=== PATIENT | female | born 1985 | race Caucasian/White ===

== ENCOUNTER 2022-03-27 07:27 | Inpatient (IN) ==
[2022-03-27] MEDS ORDERED: OXYTOCIN 30 UNITS/500 ML BAG IV PRN (07:51)
[2022-03-27] MEDS ORDERED: PENICILLIN G POTASSIUM 6 MU in DEXTROSE 5% 250 ML IV ONE (08:00)
[2022-03-27] MEDS: LACTATED RINGER'S 1,000 ML IV PRN ×2 (08:10→10:46)
[2022-03-27 08:17] LABS: Hematocrit (blood only) 38.3 % (37-47); Hemoglobin 13.5 g/dL (12.0-16.0); Mean Corpuscular Hemoglobin 30.1 pg (25-34); Mean Corpuscular Hgb Conc 35.2 g/dL (32-36); Mean Corpuscular Volume 85.3 fL (80-100); Mean Platelet Volume 9.7 fL (7.4-10.4); Platelet Count 264 K/uL (130-400); RDW Coefficient of Variation 12.8 % (11.5-14.5); RDW Standard Deviation 39.4 fL (36.4-46.3); Red Blood Count 4.49 M/uL (4.2-5.4)
--- NOTE | 2022-03-27 08:17 | History & Physical Report ---
Date of Service March 27, 2022 Assessment & Plan (1) Spontaneous rupture of amniotic membranes: Plan: 36-year-old G1, P0 at 39 weeks and 2 days of gestation attending with uterine contractions and spontaneous rupture of membranes at term, Vital signs stable afebrile, Cervix is 1/90%/-2, regular contractions, GBS positive, heart rate reassuring, Plan to admit, monitor, labs, COVID testing, penicillin for GBS, epidural for pain, expectant management for now due to regular contractions, will consider oxytocin if there will be no change in cervix. All questions were answered. (2) Uterine contractions at greater than 20 weeks of gestation: (3) Positive GBS test: (4) Gestational diabetes mellitus (GDM) affecting , antepartum: History of Present Illness Chief Complaint: Contractions and leakage of fluid Primary Care Provider: Sheila Melendez PA-C Patient is a 36-year-old G1, P0 at 39 weeks and 2 days of gestation who started her contractions around 3 AM and then start leaking yellow fluid from time between 630 to 7 AM. She presented to labor and delivery with painful contractions and asking for epidural. Denies vaginal bleeding and she reports good movements. Her has been complicated by, 1. History of bariatric surgery in 2019, growth ultrasounds completed last one was at 35 weeks and 12 percentile, 2. Depression complicating , on Zoloft, 3. Hypothyroidism, TSH 2 and not on meds, 4. Placenta succenturiate lobe, marginal placental cord insertion, 5. Gestational diabetes, diet-controlled, 6. GBS positive Allergies Allergy/AdvReac Type Severity Reaction Status Date / Time No Known Allergies Allergy Verified 03/27/22 07:36 Home Medications Medication Instructions Recorded Confirmed Type cholecalciferol (vitamin D3) 125 5,000 unit PO QAM 03/04/19 03/27/22 History mcg (5,000 unit) tablet (Vitamin D3) calcium carbonate 500 mg-vitamin 1 tab PO DAILY PRN 10/01/21 03/27/22 History D3 10 mcg (400 unit) chewable tablet (Calcium 500 + D) folic acid 1 mg tablet 1 mg PO DAILY 10/01/21 03/27/22 History multivitamin 1 tab PO DAILY 10/01/21 03/27/22 History sertraline 50 mg tablet 50 mg PO QAM 10/01/21 03/27/22 History Patient History Medical History (Updated 03/27/22 @ 08:15 by Radha Macedo MD) Anxiety Bariatric surgery status complicating childbirth Depression GERD (gastroesophageal reflux disease) Hypothyroidism PCOS (polycystic ovarian syndrome) Prediabetes Sleep apnea CPAP HS Surgical History History of tonsillectomy Social History Smoking Status: Never smoker Second Hand Exposure: No; Hx Alcohol Use: Yes Alcohol type: beer and wine Hx Substance Use: No Preferred Language: Lao Communication Ability: Effective Port Cdl A Driver Required: No Beliefs That Will Affect Care: None Current Living Situation: Spouse Feels Safe at Home: Yes Assistive Devices: CPAP and 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 History No history of STDs, no history of chlamydia, gonorrhea, herpes Review of Systems as per Subjective / HPI Physical Exam Constitutional: well developed, well nourished and + acute distress (With contractions only) Gastrointestinal (Abdomen): normal bowel sounds, soft, nontender, no hepatosplenomegaly (Gravid) Genitourinary: normal external appearance OB Exam Abdomen: + vertex Man ual OB Exam: + cervical dilation 1 cm, + cervical effacement 90%, + station -2 and + amniotic fluid nitrazine positive (Yellow stained amniotic fluid on her pad, ?Meconium, no gross leaking on the perineum) OB Exam Monitor Tracing: + external uterine monitor used and + category I Results & Data ([facility]) Vital Signs (Past 12 Hours) Vital Signs Pulse BP 03/27/22 07:30 68 120/85
[2022-03-27] MEDS ORDERED: fentaNYL citrate 100 MCG/2 ML VIAL ONE (08:58)
[2022-03-27] MEDS ORDERED: ePHEDrine sulfate 50 MG/ML AMP ONE (08:58)
[2022-03-27] MEDS ORDERED: BUPIVACAINE 0.25% 30 ML VIAL ONE (08:58)
[2022-03-27] MEDS ORDERED: SODIUM CHLORIDE 0.9% INJ 10 ML VIAL ONE (08:58)
[2022-03-27] MEDS ORDERED: fentaNYL 2MCG/ML ROPIVACAINE 1.25MG/ML 100 ML BAG EPI ONE (08:59)
[2022-03-27] MEDS ORDERED: ePHEDrine sulfate 50 MG/ML AMP IV PRN ×2 (09:55→12:52)
[2022-03-27] MEDS ORDERED: diphenhydrAMINE 50 MG/ML VIAL IV PRN ×3 (09:55→12:52)
[2022-03-27] MEDS ORDERED: ONDANSETRON INJ 2 MG/ML 2 ML VIAL IV PRN ×2 (09:55→11:45)
[2022-03-27] MEDS ORDERED: NALOXONE HCL 1 MG in SODIUM CHLORIDE 0.9% 1000ML 1,000 ML IV PRN ×2 (09:55→12:52)
[2022-03-27] MEDS ORDERED: fentaNYL 2MCG/ML ROPIVACAINE 1.25MG/ML 100 ML BAG EPI PRN (09:55)
[2022-03-27] MEDS ORDERED: NALOXONE HCL 0.4 MG/1 ML VIAL/CARP IV PRN ×2 (09:55→12:52)
--- NOTE | 2022-03-27 10:03 | Anesthesiology Consultation ---
Date of Service March 27, 2022 Assessment & Plan 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: Patient NOT seen in Pre Admission Testing and Acceptable Risk for Labor Epidural Consults Requested none ASA ASA2 Proposed Anesthesia Anesthesia Type: Labor Epidural and CSE Risk / Benefits Reviewed With: PT / POA / Parent / Guardian, Accepts Plan and Informed Consent Obtained History Height/Weight Height: 5 ft 4 in Weight: 89.358 kg Allergies Allergy/AdvReac Type Severity Reaction Status Date / Time No Known Allergies Allergy Verified 03/27/22 07:36 Medications Home Medications Medication Instructions Recorded Confirmed Last Taken cholecalciferol (vitamin D3) 125 5,000 unit PO QAM 03/04/19 03/27/22 03/26/22 08:00 mcg (5,000 unit) tablet (Vitamin D3) calcium carbonate 500 mg-vitamin 1 tab PO DAILY PRN 10/01/21 03/27/22 10/01/21 D3 10 mcg (400 unit) chewable tablet (Calcium 500 + D) folic acid 1 mg tablet 1 mg PO DAILY 10/01/21 03/27/22 03/26/22 08:00 multivitamin 1 tab PO DAILY 10/01/21 03/27/22 03/26/22 08:00 sertraline 50 mg tablet 50 mg PO QAM 10/01/21 03/27/22 03/26/22 08:00 Active Medications Generic Name Dose Route Start Last Admin Trade Name Freq PRN Reason Stop Dose Admin Lactated Ringer's 1,000 mls @ 150 mls/hr 03/27/22 07:51 03/27/22 08:10 Lr IV 03/29/22 07:50 999 mls/hr .[id number] PRN Administration L&D Protocol Protocol NPO Date Last Intake of Fluids: 03/27/22 Time Last Intake of Fluids: 09:00 Date Last Intake of Solids: 03/26/22 Time Last Intake of Solids: 19:00 Past Medical History Medical History Anxiety Bariatric surgery status complicating childbirth Depression GERD (gastroesophageal reflux disease) Hypothyroidism PCOS (polycystic ovarian syndrome) Prediabetes Sleep apnea CPAP HS Exercise / Class Metabolic Activity II 4-5 Yardwork/Stairs/Walk up hill Past Surgical History Surgical History History of tonsillectomy Past Anesthesia History No Hx of Anesthesia Complications and No Family Hx of Anesthesia Complications History of PONV No Hx of PONV and No Hx of Motion Sickness Social History Smoking Status: Never smoker Hx Alcohol Use: No Alcohol type: beer and wine alcohol intake frequency: holidays/special occasions only Hx Substance Use: No substance use type: does not use Review of Systems no chest pain or sob Physical Exam Vital Signs Last Vital Signs Temp 36.6 C 03/27/22 09:15 Pulse 64 03/27/22 10:00 Resp 18 03/27/22 09:15 BP 120/85 03/27/22 07:51 Pulse Ox 100 03/27/22 10:00 ENMT Mouth: no TMJ abnormality Thyromental Distance: > or= 3.5 Finger Breadths Mallampati Class: II Neck normal visual inspection Respiratory normal respiratory effort Auscultation: lungs clear to auscultation bilaterally Cardiovascular Rate/Rhythm: regular rate and regular rhythm Musculoskeletal Spine: normal cervical ROM Neurologic moves all extremities Psychiatric Orientation: alert and oriented x 3 Testing Laboratory Results 03/27/22 07:59
[2022-03-27] MEDS ORDERED: ceFAZolin 2000MG 2,000 MG/15 ML SYR IV ONE (10:42)
[2022-03-27] MEDS ORDERED: PENICILLIN G POTASSIUM 3 MU in DEXTROSE 5% 100 ML IV PRN (10:51)
--- NOTE | 2022-03-27 10:51 | Obstetrical Progress Note ---
Date of Service March 27, 2022 Assessment & Plan Admission and Anticipated Discharge Date Admission Date: March 27, 2022 Subjective I was called to the room that heart rate had prolonged decelerations to the 60s to 70s. Patient was on her left side, having nasal oxygen and IV fluid bolus. I checked her cervix and it was 4 cm dilated, 90% effaced and head was at -[address] scalp electrode and confirmed the deceleration which lasted about 12 minutes. I called for and placed Quezada catheter. Patient understood the risks and agreed with plan and signed an informed consent. While getting the consent heart rate recovered to 120s to 130s with decreased variability but no decelerations. We also spoke about expectant management but patient is scared and desires C- section now. All questions were answered. Results & Data ([facility]) Vital Signs (Past 12 Hours) Vital Signs Temp Pulse Resp BP Pulse Ox 03/27/22 10:46 55 L 100 03/27/22 10:42 60 120/82 03/27/22 10:41 59 L 100 03/27/22 10:38 82 87 L 03/27/22 10:36 73 110/70 100 03/27/22 10:31 68 86 L 03/27/22 10:26 55 L 100 03/27/22 10:25 58 L 94 03/27/22 10:22 60 108/71 03/27/22 10:21 63 98 03/27/22 10:18 59 L 102/58 L 03/27/22 10:16 60 100 03/27/22 10:14 59 L 94 03/27/22 10:12 59 L 153/76 H 03/27/22 10:11 60 100 03/27/22 10:09 63 94 03/27/22 10:05 63 100 03/27/22 10:03 73 91 03/27/22 10:00 64 100 03/27/22 09:55 68 100 03/27/22 09:50 62 100 03/27/22 09:45 55 L 100 03/27/22 09:44 67 91 03/27/22 09:40 65 100 03/27/22 09:37 79 92 03/27/22 09:35 75 97 03/27/22 09:30 64 100 03/27/22 09:25 76 100 03/27/22 09:20 56 L 100 03/27/22 09:15 36.6 C 18 03/27/22 07:51 36.5 C 68 18 120/85 03/27/22 07:30 36.5 C 68 18 120/85
[2022-03-27] MEDS ORDERED: MoRPHine SULFATE PF 1 MG/ML 10 ML AMP/VIAL ONE (11:06)
[2022-03-27] MEDS ORDERED: ONDANSETRON INJ 2 MG/ML 2 ML VIAL ONE (11:09)
[2022-03-27] MEDS ORDERED: OXYTOCIN 10 UNITS/ML 10ML VIAL ONE (11:09)
[2022-03-27] MEDS ORDERED: PHENYLEPHRINE 100MCG/ML 5ML SYR ONE (11:09)
[2022-03-27] MEDS ORDERED: ceFAZolin 330 MG/ML 1 GM VIAL ONE (11:09)
[2022-03-27] MEDS ORDERED: BENZOCAINE 20% AER SPR 82.5 GM CAN EXT PRN (11:45)
[2022-03-27] MEDS ORDERED: MEPERIDINE HCL 50 MG/ML CARP IV PRN (11:45)
[2022-03-27] MEDS ORDERED: DIPHTHERIA/TETANUS/PERTUSSIS 0.5 ML SYR/VIAL IM ONE (11:45)
[2022-03-27] MEDS ORDERED: MEASLES, MUMPS & RUBELLA VIRUS VIAL SQ ONE (11:45)
[2022-03-27] MEDS ORDERED: SENNA 8.6 MG TAB PO PRN (11:45)
[2022-03-27] MEDS ORDERED: PROMETHAZINE HCL 25 MG in SODIUM CHLORIDE 0.9% 50 ML IV PRN (11:45)
[2022-03-27] MEDS ORDERED: KETOROLAC 30 MG/ML VIAL IV PRN ×2 (11:45→12:52)
[2022-03-27] MEDS ORDERED: MAGNESIUM HYDROXIDE SUSP 30 ML UDC PO PRN (11:45)
[2022-03-27] MEDS ORDERED: diphenhydrAMINE Capsule 25 MG CAP PO PRN (11:45)
[2022-03-27] MEDS ORDERED: IBUPROFEN 600 MG TAB PO PRN (11:45)
[2022-03-27] MEDS ORDERED: LACTATED RINGER'S 1,000 ML IV SCH (11:45)
[2022-03-27] MEDS ORDERED: HYDROCORTISONE ACETATE 25 MG SUPP PR PRN (11:45)
[2022-03-27] MEDS ORDERED: LACTATED RINGER'S 500 ML IV PRN (12:52)
[2022-03-27] MEDS ORDERED: MoRPHine SULFATE PF 1 MG/ML 10 ML AMP/VIAL EPI ONE (12:52)
[2022-03-27] MEDS ORDERED: NALBUPHINE HCL INJ 10 MG/ML AMP IV PRN (12:52)
[2022-03-27] MEDS ORDERED: NALOXONE HCL 0.08 MG in SYRINGE 1.8 ML IV PRN (12:52)
[2022-03-27] MEDS ORDERED: HYDROmorphone INJ 0.5 MG/0.5 ML SYR IV PRN (12:52)
--- NOTE | 2022-03-27 12:52 | Anesthesiology Progress Note ---
Date of Service March 27, 2022 Anesthesia Post Procedure Vital Signs Vital Signs: Temp Pulse Resp BP Pulse Ox 03/27/22 12:49 86 116/61 100 03/27/22 12:47 81 122/68 03/27/22 12:44 79 100 03/27/22 12:39 92 H 100 03/27/22 12:34 72 100 03/27/22 12:33 79 92 03/27/22 12:32 75 132/74 03/27/22 12:29 87 100 03/27/22 12:26 83 87 L 03/27/22 12:24 84 100 03/27/22 12:19 88 100 03/27/22 12:17 86 124/69 03/27/22 12:15 84 87 L 03/27/22 12:14 90 100 03/27/22 12:09 87 97 03/27/22 12:08 90 90 03/27/22 12:07 82 118/76 03/27/22 12:04 75 100 03/27/22 12:03 82 94 03/27/22 11:59 73 96 03/27/22 11:55 77 122/71 93 03/27/22 11:54 85 100 03/27/22 10:48 61 125/83 03/27/22 10:46 55 L 100 03/27/22 10:42 60 120/82 03/27/22 10:41 59 L 100 03/27/22 10:38 82 87 L 03/27/22 10:36 73 110/70 100 03/27/22 10:31 68 86 L 03/27/22 10:26 55 L 100 03/27/22 10:25 58 L 94 03/27/22 10:22 60 108/71 03/27/22 10:21 63 98 03/27/22 10:18 59 L 102/58 L 03/27/22 10:16 60 100 03/27/22 10:14 59 L 94 03/27/22 10:12 59 L 153/76 H 03/27/22 10:11 60 100 03/27/22 10:09 63 94 03/27/22 10:05 63 100 03/27/22 10:03 73 91 03/27/22 10:00 64 100 03/27/22 09:55 68 100 03/27/22 09:50 62 100 03/27/22 09:45 55 L 100 03/27/22 09:44 67 91 03/27/22 09:40 65 100 03/27/22 09:37 79 92 03/27/22 09:35 75 97 03/27/22 09:30 64 100 03/27/22 09:25 76 100 03/27/22 09:20 56 L 100 03/27/22 09:15 36.6 C 18 03/27/22 07:51 36.5 C 68 18 120/85 03/27/22 07:30 36.5 C 68 18 120/85 Transfer of Care Handoff Completed per policy Notes Mental Status: alert / awake / arousable Patient Amnestic to Procedure: Yes Nausea / Vomiting: adequately controlled Pain: adequately controlled Airway Patency, RR, SpO2: stable & adequate BP & HR: stable & adequate Hydration State: stable & adequate Neuraxial Anesthesia: was administered and sensory block is resolving Anesthetic Complications: no major complications apparent and Pt Satisfied with anesthetic care
[2022-03-27] MEDS ORDERED: SODIUM CHLORIDE 0.9% 1000ML 1,000 ML IV SCH (13:00)
[2022-03-27] MEDS ORDERED: DC INTRASPINAL MORPHINE SCH (13:00)
[2022-03-27] MEDS ORDERED: NO NARCOTICS OR SEDATIVES SCH (13:00)
[2022-03-27] MEDS: OXYTOCIN 20 UNITS in LACTATED RINGER'S 1,000 ML IV SCH ×2 (13:10→21:15)
[2022-03-27] MEDS ORDERED: ACETAMINOPHEN 1,000 MG/100 ML VIAL IV STA (15:40)
[2022-03-27] MEDS: SIMETHICONE 80 MG CHEW PO SCH ×3 (15:55→23:45)
[2022-03-27] MEDS ORDERED: ACETAMINOPHEN 1,000 MG/100 ML VIAL IV PRN (16:53)
--- NOTE | 2022-03-27 20:20 | Operative Report (OR) ---
DATE OF SURGERY: 03/27/2022 PREOPERATIVE DIAGNOSES: The patient is a 36-year-old G1, P0 at 39 weeks and 2 days of gestation, who presented to labor and delivery with contractions, spontaneous rupture of membranes, meconium stained fluid, prolonged heart rate deceleration with bradycardia and remote from delivery. POSTOPERATIVE DIAGNOSES: The patient is a 36-year-old G1, P0 at 39 weeks and 2 days of gestation, who presented to labor and delivery with contractions, spontaneous rupture of membranes, meconium stained fluid, and prolonged heart rate deceleration with bradycardia and remote from delivery. Occiput posterior position. PROCEDURE: Primary low transverse with Pfannenstiel skin incision. SURGEON: Radha Macedo MD. ORTHO NURSE: JOYCE Jay. ESTIMATED BLOOD LOSS: 600 mL FLUIDS. 1500 mL of lactated Ringer's. CATHETERS: Quezada catheter drained 150 mL of clear urine. ANESTHESIA: Labor epidural. ANESTHESIOLOGIST: Dr. Morales. COMPLICATIONS: None. FINDINGS: Baby was a viable male infant, delivered in occiput posterior position at 11:07 am. Apgars were 8/9, weight is 2985 gr. Maternal findings: Normal uterus, fallopian tubes and ovaries. DESCRIPTION OF PROCEDURE: The patient was taken to the operating room where epidural anesthesia was found to be adequate. She was placed in the dorsal supine position with a leftward tilt. She was prepared and draped in the usual sterile fashion. A Pfannenstiel skin incision was made and carried through to the underlying layer of fascia with the Bovie. Fascia was incised in the midline and incision was extended laterally with the help of Blunt scissors. Upper aspect of the fascial incision was grasped with 2 Azra clamps, elevated and underlying rectus muscles were dissected off sharply with Blunt scissors and bluntly with fingers. Same thing was done on the lower aspect of the fascial incision. Rectus muscles were in the midline. Peritoneum was entered bluntly with fingers. Peritoneal incision was extended superiorly and inferiorly with good visualization of the bladder. Bladder blade was inserted. Vesicouterine peritoneum was identified, grasped with pickups, and entered sharply with Metzenbaum scissors and bladder flap was created digitally and bladder blade was reinserted. Lower uterine segment was incised in transverse fashion. Incision was extended laterally with the help of fingers. Membranes were ruptured and head was delivered without difficulty. Shoulders were delivered with minimal traction and mouth and nose were suctioned. Baby was moving and crying. Cord was clamped x2 and cut at 1 minute delay and baby was handed to the waiting pediatric team with Dr. Field. Cord blood was obtained and then placenta was delivered manually as intact and complete. Uterus was exteriorized and cleared of all clots and debris. Uterine incision was repaired with 0 Vicryl in a running locked fashion. A second imbricating layer was placed with another 0 Vicryl in a running locked fashion. Excellent hemostasis was achieved. Cul-de-sac was irrigated with warm normal saline and suctioned. Normal ovaries and fallopian tubes were seen. Uterus was returned to the abdomen. Pelvis was irrigated with warm normal saline and suctioned. Incision was checked to be again hemostatic. Parietal peritoneum was reapproximated with 0 Vicryl in a running fashion. Rectus muscles were reapproximated with the same suture in a running fashion. Over the rectus muscles and under the fascia were hemostatic. Rectus fascia was closed with 0 Vicryl in a running fashion. The subcuticular fat tissue was brought together with 3-0 Vicryl in a running fashion. The skin was closed with 4-0 Monocryl in a subcuticular fashion. The patient tolerated the procedure well. Sponge, lap, needle count was correct x3. No complications happened. I was present during whole procedure. She was given 2 grams of cefazolin before surgery. She was taken to recovery room in stable condition. Job ID: [id number] [facility]
[2022-03-27] MEDS: DOCUSATE SODIUM 100 MG CAP PO SCH (23:45)
[2022-03-28] MEDS: NALBUPHINE HCL INJ 10 MG/ML AMP IV PRN ×3 (05:14→05:35)
[2022-03-28 07:30] LABS: Hematocrit (blood only) 33.7 % (37-47); Hemoglobin 11.7 g/dL (12.0-16.0); Mean Corpuscular Hemoglobin 30.3 pg (25-34); Mean Corpuscular Hgb Conc 34.7 g/dL (32-36); Mean Corpuscular Volume 87.3 fL (80-100); Mean Platelet Volume 10.4 fL (7.4-10.4); Platelet Count 216 K/uL (130-400); RDW Standard Deviation 41.1 fL (36.4-46.3); Red Blood Count 3.86 M/uL (4.2-5.4); White Blood Count 10.24 K/uL (4.8-10.8)
[2022-03-28 07:32] LABS: Basophils # (auto) 0.01 K/uL (0-0.2); Basophils % (auto) 0.1 %; Immature Granulocytes # (auto) 0.03 K/uL (0.00-0.02); Immature Granulocytes % (auto) 0.3 %; Lymphocytes # (auto) 1.22 K/uL (1.2-3.4); Lymphocytes % (auto) 11.9 %; Monocytes # (auto) 0.76 K/uL (0.11-0.59); Monocytes % (auto) 7.4 %; Neutrophils # (auto) 8.22 K/uL (1.4-6.5); Neutrophils % (auto) 80.3 %
[2022-03-28] MEDS: PRENATAL VITAMIN 1 TAB PO SCH (08:30)
[2022-03-28] MEDS: DOCUSATE SODIUM 100 MG CAP PO SCH ×2 (08:30→20:16)
[2022-03-28] MEDS: SIMETHICONE 80 MG CHEW PO SCH ×4 (08:30→21:21)
[2022-03-28] MEDS: FERROUS SULFATE 325 MG TAB PO SCH (08:30)
--- NOTE | 2022-03-28 10:01 | Obstetrical Progress Note ---
Date of Service March 28, 2022 Subjective Ambulation: limited ambulation Voiding: no voiding problems Passing Gas:: No Diet Tolerance:: regular diet Lochia:: Small Feeding Type:: breast feeding Current Pain Level(1-10): 0 doing well Physical Exam Constitutional WD/WN, vitals as above abdomen soft and non-tender. incision c/d/i no edema. neg Chelo's will advance care Results & Data ([facility]) Vital Signs (Past 12 Hours) Vital Signs Temp Pulse Pulse Resp BP BP Pulse Ox 03/28/22 08:25 36.9 C 77 19 114/74 03/28/22 06:39 20 99 03/28/22 06:00 20 99 03/28/22 05:00 18 98 03/28/22 04:00 18 99 03/28/22 03:00 20 98 03/28/22 02:00 20 99 03/28/22 01:00 37.2 C 56 L 20 112/74 99 03/28/22 00:00 18 98 03/27/22 23:00 20 98 Pulse Ox 03/28/22 08:25 03/28/22 06:39 03/28/22 06:00 98 03/28/22 05:00 03/28/22 04:00 03/28/22 03:00 03/28/22 02:00 03/28/22 01:00 03/28/22 00:00 03/27/22 23:00 Laboratory Results 03/27/22 03/27/22 03/27/22 07:59 08:00 11:07 WBC 11.40 H RBC 4.49 Hgb 13.5 Hct 38.3 MCV 85.3 MCH 30.1 MCHC 35.2 RDW Std Deviation 39.4 RDW Coeff of Andrew 12.8 Plt Count 264 MPV 9.7 Immature Gran % (Auto) Neut % (Auto) Lymph % (Auto) [place] % (Auto) Eos % (Auto) Baso % (Auto) Neut # (Auto) Lymph # (Auto) [place] # (Auto) Eos # (Auto) Baso # (Auto) Immature Gran # (Auto) Cord ABG pH Cancelled Cord ABG pCO2 Cancelled Cord ABG pO2 Cancelled Cord ABG HCO3 Cancelled Cord ABG Base Excess Cancelled Cord ABG O2 Sat Cancelled Cord VBG pH Cord VBG pCO2 Cord VBG pO2 Cord VBG HCO3 Cord VBG Base Excess Cord VBG O2 Sat Barometric Pressure Cancelled Blood Gas Comments Cancelled SARS-CoV-2, RNA, NAAT NEGATIVE 03/27/22 03/28/22 11:07 05:45 WBC 10.24 RBC 3.86 L Hgb 11.7 L Hct 33.7 L MCV 87.3 MCH 30.3 MCHC 34.7 RDW Std Deviation 41.1 RDW Coeff of Andrew 13.0 Plt Count 216 MPV 10.4 Immature Gran % (Auto) 0.3 Neut % (Auto) 80.3 Lymph % (Auto) 11.9 [place] % (Auto) 7.4 Eos % (Auto) 0.0 Baso % (Auto) 0.1 Neut # (Auto) 8.22 H Lymph # (Auto) 1.22 [place] # (Auto) 0.76 H Eos # (Auto) 0.00 Baso # (Auto) 0.01 Immature Gran # (Auto) 0.03 H Cord ABG pH Cord ABG pCO2 Cord ABG pO2 Cord ABG HCO3 Cord ABG Base Excess Cord ABG O2 Sat Cord VBG pH Cancelled Cord VBG pCO2 Cancelled Cord VBG pO2 Cancelled Cord VBG HCO3 Cancelled Cord VBG Base Excess Cancelled Cord VBG O2 Sat Cancelled Barometric Pressure Cancelled Blood Gas Comments Cancelled SARS-CoV-2, RNA, NAAT
[2022-03-28] MEDS: oxyCODONE/ACETAMINOPHEN 5mg/325mg TAB PO PRN ×4 (10:22→21:25)
[2022-03-28] MEDS ORDERED: bisacodyL 5 MG TABEC PO SCH (20:00)
[2022-03-29] MEDS: oxyCODONE/ACETAMINOPHEN 5mg/325mg TAB PO PRN ×6 (00:51→23:58)
[2022-03-29 07:00] LABS: Hematocrit (blood only) 34.9 % (37-47); Hemoglobin 11.9 g/dL (12.0-16.0)
--- NOTE | 2022-03-29 08:11 | Labor Progress Brief Note ---
Date of Service March 29, 2022 Assessment & Plan (1) delivery delivered: Plan: c/sec day #2 Pt doing well No complaints anticipate disch tomorrow Admission and Anticipated Discharge Date Admission Date: March 27, 2022 Results & Data ([facility]) Vital Signs (Past 12 Hours) Vital Signs Temp Pulse Resp BP Pulse Ox 03/29/22 00:00 37.1 C 80 20 126/79 99
[2022-03-29] MEDS: DOCUSATE SODIUM 100 MG CAP PO SCH ×2 (08:24→20:10)
[2022-03-29] MEDS: SIMETHICONE 80 MG CHEW PO SCH ×4 (08:24→20:10)
[2022-03-29] MEDS: PRENATAL VITAMIN 1 TAB PO SCH (08:24)
[2022-03-29] MEDS: FERROUS SULFATE 325 MG TAB PO SCH (08:24)
[2022-03-29] MEDS ORDERED: ACETAMINOPHEN 325 MG TAB PO PRN (08:46)
--- NOTE | 2022-03-29 08:48 | Obstetrical Progress Note ---
Date of Service March 29, 2022 Assessment & Plan (1) delivery delivered: Results & Data ([facility]) Vital Signs (Past 12 Hours) Vital Signs Temp Pulse Resp BP Pulse Ox 03/29/22 00:00 37.1 C 80 20 126/79 99
[2022-03-29] MEDS: SERTRALINE HCL 50 MG TABLET PO SCH (11:41)
[2022-03-29] MEDS ORDERED: bisacodyL 10 MG SUPP PR PRN (11:45)
[2022-03-30] MEDS: PRENATAL VITAMIN 1 TAB PO SCH (07:22)
[2022-03-30] MEDS: FERROUS SULFATE 325 MG TAB PO SCH (07:22)
[2022-03-30] MEDS: DOCUSATE SODIUM 100 MG CAP PO SCH (07:22)
[2022-03-30] MEDS: oxyCODONE/ACETAMINOPHEN 5mg/325mg TAB PO PRN ×2 (07:23→12:06)
[2022-03-30] MEDS: SIMETHICONE 80 MG CHEW PO SCH (08:14)
[2022-03-30] MEDS: SERTRALINE HCL 50 MG TABLET PO SCH (08:14)
--- NOTE | 2022-03-30 09:37 | Obstetrical Progress Note ---
Date of Service March 30, 2022 Assessment & Plan Admission and Anticipated Discharge Date Admission Date: March 27, 2022 Subjective Patient is seen and examined. She feels well, no complaints. Pain is under control with oral meds. Ambulating without dizziness Voiding without difficulty Tolerating regular diet with out N&V Flatus + BM + Bleeding is minimal No fever/ chills/ CP/ SOB/ N&V/ Leg pain Breast feeding without problems Vital Signs Temp Pulse Resp BP Pulse Ox 03/30/22 08:00 37.2 C 85 18 133/93 99 03/29/22 19:35 37.1 C 83 18 124/83 98 03/29/22 15:45 36.7 C 76 18 119/81 97 Lab Results 03/27/22 03/27/22 03/27/22 Range/Units 07:59 08:00 11:07 WBC 11.40 H (4.8-10.8) K/uL RBC 4.49 (4.2-5.4) M/uL Hgb 13.5 (12.0-16.0) g/dL Hct 38.3 (37-47) % MCV 85.3 (80-100) fL MCH 30.1 (25-34) pg MCHC 35.2 (32-36) g/dL RDW Std Deviation 39.4 (36.4-46.3) fL RDW Coeff of Andrew 12.8 (11.5-14.5) % Plt Count 264 (130-400) K/uL MPV 9.7 (7.4-10.4) fL Immature Gran % (Auto) % Neut % (Auto) % Lymph % (Auto) % Lamb % (Auto) % Eos % (Auto) % Baso % (Auto) % Neut # (Auto) (1.4-6.5) K/uL Lymph # (Auto) (1.2-3.4) K/uL Lamb # (Auto) (0.11-0.59) K/uL Eos # (Auto) (0-0.5) K/uL Baso # (Auto) (0-0.2) K/uL Immature Gran # (Auto) (0.00-0.02) K/uL Cord ABG pH Cancelled Cord ABG pCO2 Cancelled Cord ABG pO2 Cancelled Cord ABG HCO3 Cancelled Cord ABG Base Excess Cancelled Cord ABG O2 Sat Cancelled Cord VBG pH Cord VBG pCO2 Cord VBG pO2 Cord VBG HCO3 Cord VBG Base Excess Cord VBG O2 Sat Barometric Pressure Cancelled Blood Gas Comments Cancelled SARS-CoV-2, RNA, NAAT NEGATIVE (NEGATIVE) 03/27/22 03/28/22 03/29/22 Range/Units 11:07 05:45 06:18 WBC 10.24 (4.8-10.8) K/uL RBC 3.86 L (4.2-5.4) M/uL Hgb 11.7 L 11.9 L (12.0-16.0) g/dL Hct 33.7 L 34.9 L (37-47) % MCV 87.3 (80-100) fL MCH 30.3 (25-34) pg MCHC 34.7 (32-36) g/dL RDW Std Deviation 41.1 (36.4-46.3) fL RDW Coeff of Andrew 13.0 (11.5-14.5) % Plt Count 216 (130-400) K/uL MPV 10.4 (7.4-10.4) fL Immature Gran % (Auto) 0.3 % Neut % (Auto) 80.3 % Lymph % (Auto) 11.9 % Lamb % (Auto) 7.4 % Eos % (Auto) 0.0 % Baso % (Auto) 0.1 % Neut # (Auto) 8.22 H (1.4-6.5) K/uL Lymph # (Auto) 1.22 (1.2-3.4) K/uL Lamb # (Auto) 0.76 H (0.11-0.59) K/uL Eos # (Auto) 0.00 (0-0.5) K/uL Baso # (Auto) 0.01 (0-0.2) K/uL Immature Gran # (Auto) 0.03 H (0.00-0.02) K/uL Cord ABG pH Cord ABG pCO2 Cord ABG pO2 Cord ABG HCO3 Cord ABG Base Excess Cord ABG O2 Sat Cord VBG pH Cancelled Cord VBG pCO2 Cancelled Cord VBG pO2 Cancelled Cord VBG HCO3 Cancelled Cord VBG Base Excess Cancelled Cord VBG O2 Sat Cancelled Barometric Pressure Cancelled Blood Gas Comments Cancelled SARS-CoV-2, RNA, NAAT (NEGATIVE) PE: General: Alert, orientedx3, NAD CVS: S1S2 RRR Lungs; CTAB Abd: soft, NT, ND, BS+, fundus firm, below Umbilicus Incision: Clean, dry, intact, small bruise on middle superior side Perineum intact, Lochia rubra minimal Ext; NT, no edema AP: 36 yo s/p C Section, pod# 3 VSS Afebrile doing well Continue routine postop care Encourage ambulation, PO intake All questions were answered D/C home , f/u in office Results & Data ([facility]) Vital Signs (Past 12 Hours) Vital Signs Temp Pulse Resp BP Pulse Ox 03/30/22 08:00 37.2 C 85 18 133/93 99
--- NOTE | 2022-04-02 09:33 | Discharge Summary (DS) ---
DATE OF ADMISSION: 03/27/2022. DATE OF DISCHARGE: 03/30/2022. DETAILS OF ADMISSION: The patient is a 36-year-old G1, P0 at 39 weeks and 2 days of gestation. She presented to labor and delivery with contractions and spontaneous rupture of membranes. Her cervix was 1 cm dilated, 90% effaced, -2 with regular contractions. GBS was positive and she was leaking meconium stained fluid. heart rate was reassuring initially. She was admitted for labor and started penicillin for GBS and continuously monitored. Then heart rate had a prolonged decelerations/bradycardia to the 60s-70s for about 12 minutes and she was 4 cm dilated, 90% effaced, head was -2 station. Due to the category 3 strip, remote from delivery, decision was made to go for emergency . The patient understood risks and signed an informed consent. She was taken to the OR, had primary low transverse , delivered a viable male at 11:07 a.m. Her surgery was uncomplicated. See dictated op note for details. On postop period, the patient was doing well, vital signs stable, afebrile. Urine output was good. She was continuously monitored. On postoperative day #1, the patient was doing well, vital signs stable, afebrile. Quezada was discontinued. She was ambulated, started on regular diet. Her postop H and H was 11.7/33.7. Postop day #2, the patient was doing well, vital signs stable, afebrile. Physical exam was unremarkable. Incision was clean, dry and intact. She was eating regular diet and ambulating. On postoperative day #3 patient was doing well, vital signs stable, afebrile. She was passing gas, moving her bowels, voiding without difficulty, without problems. Her repeat H and H was 11.9/34.9. Physical exam was unremarkable. Incision was clean, dry and intact. Bleeding was minimal. Abdomen was soft, nontender, nondistended. She was discharged home on postoperative day #3. Discharge instructions were given. Prescriptions were written for pain. She is to be seen in the office in a week for incision check. Job ID: [id number] [facility]
== END 2022-03-30 13:45 | disposition home or self-care (01) | DRG 788 ==
LOC: OPB 07:27 → 4S1 07:28 → 4E2 14:30
DX: O43.123 Velamentous insertion of umbilical cord, third trimester; F41.9 Anxiety disorder, unspecified; Z37.0 Single live birth; Z90.09 Acquired absence of other part of head and neck; O99.344 Other mental disorders complicating childbirth; O99.613 Diseases of the digestive system complicating pregnancy, third trimester; K21.9 Gastro-esophageal reflux disease without esophagitis; O77.0 Labor and delivery complicated by meconium in amniotic fluid; O99.844 Bariatric surgery status complicating childbirth; O24.420 Gestational diabetes mellitus in childbirth, diet controlled; Z3A.39 39 weeks gestation of pregnancy; O99.820 Streptococcus B carrier state complicating pregnancy

== ENCOUNTER 2024-07-02 07:51 | Inpatient (IN) ==
--- NOTE | 2024-06-20 16:15 | Anesthesiology Consultation ---
Date of Service June 20, 2024 Assessment & Plan (1) Encounter for pre-operative examination: Infectious disease screening: Per assessment on 06/20/24: No known recent infectious disease contacts or current infectious disease symptoms. 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 History Surgery Operation Date: 07/02/24 10:20 Proposed Procedures p Repeat Section - Dandre Hardy MD s With Bilateral Tubal Ligation - Dandre Hardy MD Height/Weight Height: 5 ft 4 in Weight: 87.997 kg Allergies Allergy/AdvReac Type Severity Reaction Status Date / Time enoxaparin [From Lovenox] Allergy Unknown Rash Verified 06/20/24 15:14 Medications Home Medications Medication Instructions Recorded Confirmed Last Taken cholecalciferol (vitamin D3) 125 5,000 unit PO QAM 03/04/19 06/20/24 03/29/24 21:00 mcg (5,000 unit) tablet (Vitamin D3) calcium carbonate 500 mg-vitamin 1 tab PO DAILY 10/01/21 06/20/24 03/29/24 21:00 D3 10 mcg (400 unit) chewable tablet (Calcium 500 + D) folic acid 1 mg tablet 1 mg PO DAILY 10/01/21 06/20/24 03/29/24 21:00 multivitamin 1 tab PO DAILY 10/01/21 06/20/24 03/29/24 21:00 Past Medical History Medical History Anemia last iron infusion 03/2024 Anxiety History of COVID-19 (2021) Symptoms resolved Hx gestational diabetes PCOS (polycystic ovarian syndrome) Sleep apnea "No longer needs CPAP since bariatric surgery" Past Family History Family History Other No family history of adverse response to anesthesia Past Surgical History Surgical History History of esophagogastroduodenoscopy (EGD) History of tonsillectomy Hx of section Hx of gastric bypass (08/2019) [place] teeth removed Social History Smoking Status: Never smoker Do You Dip or Chew Tobacco: No Hx Alcohol Use: No Alcohol type: beer and wine alcohol intake frequency: holidays/special occasions only Hx Substance Use: No substance use type: does not use
--- OUTSIDE RECORDS SUMMARY | 2024-07-02 08:02 | External Medical Summary | Summary of Care ---
Author Name Unknown Organization [facility] Address [address] [facility] [address] Phone [phone] Care Team Providers Care Signals Officer Name Role Phone Sheila Melendez PA-C Primary Care Provide r Reason for Visit * Reason Comments Return Visit Pre-Op Testing Encounter Details Date Type Department Care Team (Late st Contact Info) Description 06/10/2024 8:45 AM EDT Office Visit Gynecology/Obstetric s [facility] [address] [place] [address] Samina Flores MD [address] [place] [id number] 36 weeks gestation of *; High-risk , third trimester; Previous bariatric surgery affecting , antepartum; H/O section; Antepartum multigravida of advanced maternal age; History of gestational diabetes; Supervision of high-risk , unspecified trimester; Depression complicating , antepartum Allergies Active Allergy Reactions Criticality Noted Date Comments Enoxaparin Sodium Rash 09/10/2019 documented as of this encounter (statuses as of 06/10/2024) Medications Medication Sig Dispensed Refills Start Date End Date Status Calcium+D3 600-800 MG-UNIT Oral Tablet Take by mouth 1 Tablet 3 times a day . All chews Active Cholecalciferol (VITAMIN D) 25 MCG (1000 UT) TABS Take by mouth. Active Childrens Chewable Vitamins Oral Tablet Chewable Take 1 Tablet by mouth in the morning and 1 Tablet before bedtime. Active Folic Acid 5 MG Oral Capsule Take by mouth. Active [place]-3 Fatty Acids 1000 MG Oral Capsule (OMEGA-3) Take 1 Capsule by mouth in the morning. Active Clindamycin Phosphate 1 % External Lotion APPLY 1 APPLICATION TOPICALLY TWICE DAILY TO RASH ON FACE AND PIMPLY AREAS NEEDED 02/28/2024 Active Iron Sucrose 20 MG/ML Intravenous Solution (Venofer)Indications :Intestinal postoperative nonabsorption,Pregna ncy affected by previous bariatric surgery, currently in second trimester,Status post gastric bypass for obesity,Iron deficiency anemia secondary to inadequate dietary iron intake Administer 300 mg intravenously once a week. 04/08/2024 Active Hospital, Clinic, or Other Facility Administered Medication Ordered Dose Route Frequency Start Date End Date Status vitamin b-12 (Cyanocobalamin) inj 1,000 mcgIndications:Encounter for supervision of normal first in first trimester,S/P bariatric surgery 1000 mcg IM [id number] 08/22/2021 Active documented as of this encounter (statuses as of 06/10/2024) Active Problems Problem Noted Date Diagnosed Date Antepartum anemia 04/14/2024 History of gestational diabetes 11/29/2023 Overview: Early glucola Antepartum multigravida of advanced maternal age 0111/29/2023 H/O section 11/29/2023 Overview: Desires repeat c/s with BTL Iron deficiency anemia rossana alonso to inadequate dietary iron intake 09/18/2023 COVID-19 vaccine series started 01/20/2022 Overview: Upon review of records, primary series of J&J COVID-19 vaccine completed on 03/04/21 Last Assessment & Plan: The CDC and ACOG encourages a COVID-19 vaccine booster for women, given the risk of severe complications from COVID-19 in . Supervision of high-risk , unspecified trimester 08/24/2021 complicated by previous bariatric surg ang 08/24/2021 Overview: On supplements Desires to try glucola rather than fingersticks Last Assessment & Plan: DISCUSSION: 1. Explained to patient that weight loss after bariatric surgery often leads to greater fertility and a decreased risk for the obstetric complications. 2. Explained that it is recommended to delay for 12 to 24 months after bariatric surgery to avoid during the period of rapid weight loss. Women with a gastric band should be monitored during because the band may need to be adjusted. 3. In there may be a delay in diagnosis of bariatric-related operative complications, including anastomotic leaks, bowel obstructions, internal hernias, ventral hernias, band erosion, and band migration. Therefore, all gastrointestinal problems such as nausea, vomiting, and abdominal pain should be thoroughly evaluated with involvement of the bariatric surgeon because the underlying pathology may be related to the bariatric surgery, not the itself. 4. Discussed the most common nutritional deficiencies after gastric bypass surgery to include protein, iron, vitamin B12, folate, vitamin D, and calcium. RECOMMENDATIONS: 1. Vitamin supplements recommended for the woman with a history of bariatric surgery are as follows: - vitamin daily with 1mg of folic acid -Vitamin B12 IM injection 1000mcg monthly -Vitamin D 800 IU daily -Calcium citrate 7899-5757 mg daily (better absorbed than calcium carbonate) -Ferrous fumarate 325 mg daily (taken with vitamin C to improve absorption and acidify the stomach). -If patient has persistent vomiting, then add thiamine 50mg daily. 2. Other nutritional information to consider: -Protein intake of 60 g daily is recommended. -Excess vitamin A consumption during is associated with defects. Vitamin A should be limited to less than 5,000 IU per day during . Vitamins with beta-carotene, the pre-form Vitamin A which is not teratogenic, are preferred. 3. Recommend nutrition referral to help the patient adhere to dietary regimens and to cope with the physiologic changes of . 4. Recommend Maternal Medicine anatomy ultrasound and serial growth assessments every 4 weeks after 24 weeks. 5. Patients with a history of gastric bypass often cannot tolerate the gestational diabetes screen secondary to dumping syndrome. Therefore, as an alternative screening method, we recommend monitoring fasting and 2-hour postprandial blood sugars for one week between 24-28 weeks of gestation. 6. Bariatric surgery should not alter the course of labor and delivery, and therefore, it does not significantly affect its management. Bariatric surgery itself should not be considered as an indication for delivery. 7. Patients with history of bariatric surgery within past two years should notify their bariatric surgeon. 8. Consider pre-labor consultation with bariatric surgeon if extensive abdominal surgery was performed. Depression complicating , antepartum Overview: Stopped med with +HPT. Feeling well at NOB. Desires to stay off meds. Last Assessment & Plan: Reviewed with patient that women with a history of depression are at risk for recurrence both during and/or the period. Discussed with patient that depression can and should be treated during when the benefits of treatment outweigh potential risks. 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 Estimated Date of Delivery Comme nts Yes 07/07/2024 Based on last me nstrual period of 10/01/2023 documented as of this encounter (statuses as of 06/10/2024) Resolved Problems Problem Noted Date Diagnosed Date Resolved Date GBS (group B Streptococcus c arrier), +RV culture, currently 03/10/2022 08/08/2022 Genetic screening 01/20/2022 08/08/2022 Overview: I reviewed cffDNA screening completed on 09/15/21 which resulted in low risk for aneuploidy Last Assessment & Plan: Cell-free DNA (cffDNA) screening is a genetic screening option that analyzes maternal blood for DNA that is placental in origin and targets the following conditions: Trisomy 21 (Down syndrome), trisomy 18, trisomy 13, and sex chromosome abnormalities such as monosomy X (Mittal syndrome), and sex chromosome trisomies (triple X, Klinefelter syndrome, XYY). It may also evaluate for other genetic alterations such as microdeletions, depending on the specific test. Results provided are NOT diagnostic, but provide a risk estimate. Types of results include low-risk/negative, high-risk/positive, and inconclusive. Low-risk results convey a low risk for the conditions screened, while high- risk results will indicate which condition is high risk and the likelihood of the condition based on the results. High-risk supervis ion, third trimester 01/20/2022 03/08/2022 Placenta succenturiate lobe affecting fetus 01/12/2022 08/08/2022 Overview: Upon review of records succenturiate lobe and marginal placental cord insertion noted on ultrasound on 11/14/21 Last Assessment & Plan: We discussed the finding of a succenturiate lobe. Given the position of the anterior lobe, there is no evidence to suggest a vasa previa. As such, the main risk with this finding is retained placenta after delivery. I encouraged her to discuss this with her delivering providers to ensure complete placenta removal after delivery. GDM (gestational diabetes mellitus) 01/12/2022 08/08/2022 Overview: Patient has been testing her fasting and postprandial values and given some elevations of 1 hour postprandials, she was given a diagnosis of GDM. She has an upcoming visit with nutrition scheduled on 01/23/22 She reports on average, her fastings are less than 95 and she had sporadic elevations with breakfast and lunch meals. Majority of dinner postprandials are less than 140. 01/23 F stable/elevations regularly in PP some in the 200s/email to patient 01/30 stable with 2 elevated PP 02/06 stable F elevated PP/email to patient/nutrition appt this week 02/13 stable 02/20 F stable, several high PP/email to patient 02/27 stable F/high PP dinner/mealtime if not stable next week 03/06 one hypo F and one hypo 2 hr PP/email to patient 03/13/22: One hypo F and 2 hyper PP /email to patient 03/20: One hypo, 68 fasting; 3 hyper 142, 142, 141 Last Assessment & Plan: Beatriz doing well working with [facility]. If medication required, please initiate 2x weekly NSTs and plan for 39 week delivery. We reviewed her growth u/s results as EFW today on the lower end of normal. This is most likely due to difficulty in obtaining accurate head measurements at later gestational age (AC is normal). She was reassured that growth is normal. At this time, no indication for early delivery. Hypothyroidism affecting 08/24/2021 08/08/2022 Overview: No meds, TSH 2.06 on 08/03/21 Check each trimester Last Assessment & Plan: DISCUSSION: 1. Discussed with the patient that uncontrolled maternal hypothyroidism is associated with compromised neuropsychological development of the developing fetus in addition to an increased risk of miscarriage, , preeclampsia, placental abruption, low weight infants, and IUFD. These risks are modifiable with thyroid-replacement medications. Thyroid-replacement therapies are safe to use during and essential to normal development. One third of hypothyroid patients will require increased T4 supplementation in . 2. Discussed that she should space her thyroxine dose and her vitamin, iron or calcium doses by 2-3 hours as these can interfere with thyroxine absorption. 3 If hypothyroidism is due to treated Graves' disease, the fetus may be at risk for or goiter/hyperthyroidism due to the residual presence of maternal thyroid receptor antibodies (TRAb). RECOMMENDATIONS: 1. In women with pre- diagnosis of hypothyroidism, recommend assessing TSH every 4-6 weeks until the patient is euthyroid based on TSH (first trimester, 0.1-2.5 mIU/L; second trimester, 0.2-2.5 mIU/L; third trimester, 0.3-2.5 mIU/L). 2. After any adjustment of thyroid replacement dosing, recheck TSH 4-6 weeks later. 3. Once euthyroidism is attained, TSH should be assessed every trimester. 4. In those with previous radioiodine ablation or thyroidectomy, anticipatory increases of T4 replacement by 25% are suggested to decrease the likelihood of significant hypothyroidism in . 5. Maternal Medicine ultrasound is only indicated if patient requires an adjustment of her thyroid replacement therapy dosing after the first trimester of . Refer back to MFM if this occurs. She should continue to have growth assessments with MFM while she is clinically hypothyroid. 6. If patient experiences thyroid goiter or nodule during , we recommend that she be referred to endocrinology for evaluation and management. is not a contraindication to fine needle aspiration but should be handled at the discretion of the rn document improvement. 7. For women with a history of treated Graves' disease, third trimester MFM ultrasound should be performed to evaluate for goiter. Please refer immediately back to MFM for persistent tachycardia on office evaluation as this may also be a symptom of hyperthyroidism. 8 If hypothyroidism is poorly controlled, consider weekly NSTs at 32 weeks. Obstructive sleep apnea syndrome 11/14/2018 11/14/2021 Severe obesity with body mas s index (BMI) of 35.0 to 39.9 with serious comorbidity 07/08/2012 Overview: bmi= 39.99 07/08/12 ICD-10 update of inactive diagnosis Abdominal pain, left upper quadrant 07/08/2012 11/14/2021 Obstipation 07/08/2012 11/14/2021 Unspecified viral infection, in conditions classified elsewhere and of unspecified site 05/05/2008 11/14/2021 Backache 05/05/2008 11/14/2021 Nausea 05/05/2008 11/14/2021 Overview: ICD-10 update of inactive term AC SUPP OTITIS MEDIA, RIGHT 10/16/2006 11/14/2021 ACUTE URI NOS 10/16/2006 01/14/2009 Overview: Resolved per Benign Acute Dxs Protocol #3 Otalgia 10/16/2006 11/14/2021 documented as of this encounter (statuses as of 06/10/2024) Immunizations Name Administration Dates Next Due HPV Vaccine, 4-Valent 03/14/2010,11/09/2009,08/26 Seasonal Influenza, PF, 6 M & above, IM , (FluLaval or Fluzone) 09/21/2021 Seasonal Influenza, Split, I IV3, With Preserve, Inj 08/29/2012,12/25/2011 TDAP (age 10 and older)(Boostrix) 04/14/2024, TDAP, Age 7 and older, IM (Adacel) 12/25/2011,10/22/2019 documented as of this encounter Social History Tobacco Use Types Packs/Day Years Used Date Smoking Tobacco: Never Smokeless Tobacco: Never Alcohol Use Standard Drinks/Week Comments Not Currently 0 (1 standard drink = 0.6 oz pur e alcohol) rarely if ever PHQ-2 Answer Date Recorded PHQ-2 Score 3 05/01/2019 Hunger Vital Sign Answer Date Recorded Within the past 12 months, y ou worried that your food would run out before you got the money to buy more. Never true 11/26/19 24 Within the past 12 months, t he food you bought just didn't last and you didn't have money to get more. Never true 11/26/2023 [place] Depression Scale Answer Date Recorded [place]ridge Depression Scale Total 2 11/29/2023 The thought of harming myself has occurred to me . Never 11/29/2023 Childcare Answer Date Recorded Do you feel overwhelmed with taking care of a child, family member or friend? No 11/26/2023 Does your family need help f inding childcare? (Household - for ages 0-17 years) Not on file 11/26/2023 Clothing Answer Date Recorded Have you been unable to get clothing when it was really needed? No 11/26/2023 Is your family able to get c lothes or diapers when needed? (Household - for ages 0-17 years) Not on file 11/26/2023 Personal Safety Answer Date Recorded Do you feel unsafe or have concerns for your saf ety? No 11/26/2023 Do you have concerns for you r family's safety? (Household - for ages 0-17 years) Not on file 11/26/2023 Utilities Answer Date Recorded Do you have trouble paying y our heating, water, or electric bill? No 11/26/2023 Is your family able to pay t he heat, water, or electric bill? (Household - for ages 0-17 years) Not on file 11/26/2023 Does your family have access to good internet? (Household - for ages 0-17 years) Not on file 11/26/2023 Employment Status Answer Date Recorded Are you unemployed or without regular income? No 11/26/2023 Does the household have a re gular source of income? (Household - for ages 0-17 years) Not on file 11/26/2023 Social Connections Answer Date Recorded How often do you feel lonely or isolated from th ose around you? Never 11/26/2023 Financial Resource Strain Answer Date R ecorded Do you have any trouble payi ng for your medications, or do you think you might in the future? No 11/26/2023 Does your family have troubl e paying for medicine? (Household - for ages 0-17 years) Not on file 11/26/2023 Transportation Needs Answer Date Record ed READ ONLY Do you have troubl e getting a ride to medical visits or work? Never True 11/26/2023 Does your family have a hard time getting a ride to doctors visits? (Household - for ages 0-17 years) Not on file 11/26/2023 Has lack of transportation k ept you from medical appointments, meetings, work, or from getting things needed for daily living? Check all that apply. (Adult - for ages 18 years and over) Not on file 11/26/2023 Do you (or your family) have trouble finding or paying for a ride (transportation)? (Household - for ages 0-17 years) Not on file 11/26/2023 Housing Stability Answer Date Recorded Do you currently live in a s helter or have no steady place to sleep at night? No 11/26/2023 READ ONLY Do you think you a re at risk of becoming homeless? No 11/26/2023 Does your family worry about paying for your home or becoming homeless? (Household - for ages 0-17 years) Not on file 0 11/26/2023 Are you homeless or worried that you might be in the future? (Adult - for ages 18 years and over) Not on file Are you (or your family) lukas eless or worried that you might be in the future? (Household - for ages 0-17 years) Not on file Food Insecurity Answer Date Recorded Do you need food for this week? No 11/26/2023 Are you able to get enough f ood for your family? (Household - for ages 0-17 years) Not on file 11/26/2023 Does your family need food t his week? (Household - for ages 0-17 years) Not on file 11/26/2023 Do you always have enough fo od for your family? (Household - for ages 0-17 years) Not on file 11/26/2023 Estimated Date of Delivery Comme nts Yes 07/07/2024 Based on last me nstrual period of 10/01/2023 Sex and Gender Information Value Date Recorded Sex Assigned at Female 03/09/2022 8:55 AM EDT Gender Identity Female 03/09/2022 8:55 AM EDT Sexual Orientation Straight 03/09/2022 8: 55 AM EDT Job Start Date Occupation Industry Not on file Not on file Not on file documented as of this encounter Last Filed Vital Signs Vital Sign Reading Time Taken Comments Blood Pressure 118/72 06/10/2024 8:34 AM EDT Pulse - - Temperature 36.7 C (98.1 F) 06/10/2024 8:34 AM ED T Respiratory Rate - - Oxygen Saturation - - Inhaled Oxygen Concentration - - Weight 87.5 kg (193 lb) 06/10/2024 8:34 AM EDT Height 162.6 cm (5' 4") 06/10/2024 8:34 AM EDT Body Mass Index 33.13 06/10/2024 8:34 AM EDT documented in this encounter Functional Status Functional Status Response Date of Assess ment Are you deaf or do you have serious difficulty h earing? No 08/26/2019 Are you blind or do you have serious difficulty seeing, even when wearing glasses? No 08/26/2019 Do you have serious difficul ty walking or climbing stairs? (5 years old or older) No 08/26/2019 Do you have difficulty dress ing or bathing? (5 years old or older) No 08/26/2019 Because of a physical, menta l, or emotional condition, do you have difficulty doing errands alone such as visiting a doctor s office or shopping? (15 years old or older) No 08/26/20 19 Cognitive Status Response Date of Assessm ent Because of a physical, menta l, or emotional condition, do you have serious difficulty concentrating, remembering, or making decisions? (5 years old or older) No 08/26/2019 documented as of this encounter Progress Notes * Samina Flores MD - 06/10/2024 8:45 AM EDT H+P 06/10/24 Beatriz Martinez is a 39 year old at 36w1d by 9 week ultrasound and LMP with Estimated Date of Delivery: 07/07/24 . She presents for return OB visit and preoperative exam. She is scheduled for repeat with bilateral salpingectomy on July 02, [address] Hardy at [facility]. Patient denies contractions, leaking of fluid or vaginal bleeding. Felling less this AM compared toearlier. Having worsening [place] throughout day. Would like to be checked today. Denies blurry vision, right upper quadrant epigastric pain. Otherwise feeling well. Having slight headache Her record is reviewed. CURRENT PROBLEM LIST: Patient Active Problem List Diagnosis Date Noted Antepartum anemia [O99.019] 04/14/2024 History of gestational diabetes [Z86.32] 11/29/2023 Early glucola Antepartum multigravida of advanced maternal age [O09.529] 11/29/2023 H/O section [Z98.891] 11/29/2023 Desires repeat c/s with BTL Iron deficiency anemia secondary to inadequate dietary iron intake [D50.8] 09/18/2023 COVID-19 vaccine series started [Z23] 01/20/2022 Upon review of records, primary series of J&J COVID-19 vaccine completed on 03/04/21 Supervision of high-risk , unspecified trimester [O09.90] 08/24/2021 complicated by previous bariatric surgery [O99.840] 08/24/2021 On supplements Desires to try glucola rather than fingersticks Depression complicating , antepartum [O99.340, F32.A] 08/24/2021 Stopped med with +HPT. Feeling well at NOB. Desires to stay off meds. Postgastric surgery syndrome [K91.1] 08/18/2020 S/P bariatric surgery [Z98.84] 09/10/2019 Hypothyroidism [E03.9] 11/14/2018 PCOS (polycystic ovarian syndrome) [E28.2] 11/14/2018 Gastroesophageal reflux disease [K21.9] 11/14/2018 Depression with anxiety [F41.8] 11/14/2018 ADVANCE DIRECTIVE INFORMATION 08/13/2006 No, Advance Directive brochure given to patient at prior appointment. OBSTETRIC HISTORY: OB History 2 Para 1 Term 1 0 AB 0 Living 1 SAB 0 IAB 0 Ectopic 0 Multiple 0 Live Births 1 Obstetric Comments 2021 FOB#1 Julius 36yo healthy PAST MEDICAL HISTORY: Past Medical History: Diagnosis Date AC SUPP OTITIS MEDIA, RIGHT 10/16/2006 Anxiety and depression Gastroesophageal reflux disease 11/14/2018 GDM (gestational diabetes mellitus) 01/12/2022 GERD (gastroesophageal reflux disease) Gestational diabetes 2021 Hypothyroidism discontinued levoxyl Obstructive sleep apnea syndrome 11/14/2018 resolved Otalgia 10/16/2006 PCOS (polycystic ovarian syndrome) S/P bariatric surgery 09/10/2019 RECENT IMMUNIZATIONS: Most Recent Immunizations Administered Date(s) Administered Covid-19 Ad26, Single Dose ([facility]/J&J) 03/04/2021 HPV Vaccine, 4-Valent 03/14/2010 Seasonal Influenza, PF, 6 M & above, IM , (FluLaval or Fluzone) 09/21/2021 Seasonal Influenza, Split, IIV3, With Preserve, Inj 08/29/2012 TDAP (age 10 and older)(Boostrix) 04/14/2024 TDAP, Age 7 and older, IM (Adacel) 12/25/2011 PAST SURGICAL HISTORY: Past Surgical History: Procedure Laterality Date DENTAL SURGERY PROCEDURE NEC age 18 wisdom teeth x 3 EGD, FLEXIBLE, DIAGNOSTIC 03/14/2019 reflux esophagitis/[facility] EGD, FLEXIBLE, DIAGNOSTIC N/A 08/26/2019 ESOPHAGOGASTRODUODENOSCOPY (EGD), FLEXIBLE, TRANSORAL, DIAGNOSTIC performed by Leon Blunt MD at [facility] LAPAROSCOPE PROCEDURE, LIVER N/A 08/26/2019 UNLISTED LAPAROSCOPIC PROCEDURE LIVER performed by Leon Blunt MD at [facility] LAPAROSCOPIC GASTRIC BYPASS/TANK-EN-Y N/A 08/26/2019 ROBOTIC LAPAROSCOPIC GASTRIC RESTRICTIVE BYPASS TANK EN Y performed by Leon Blunt MD at [facility] [place] DELIVERY ONLY 03/27/2022 REMOVE TONSILS & ADENOIDS, UNDER 12 age 7 FAMILY HISTORY: Family History Problem Relation Name Age of Onset Osteoporosis Mother Other (Other) Mother GDM Hypertension Father Other (Other) Sister PEC Breast Cancer Grandmother (Maternal) Diabetes Grandmother (Paternal) ALLERGIES: Review of patient's allergies indicates: Allergen Reactions Lovenox [Enoxaparin Sodium] Rash SOCIAL HISTORY: Social History Socioeconomic History Marital status: Spouse name: Julius Occupational History 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 exercise: walking. diet: no. caodaism/alevism: yazidi Social Determinants of Health Financial Resource Strain: Low Risk (11/26/2023) Financial Resource Strain Do you have any trouble paying for your medications, or do you think you might in the future? (Adult - for ages 18 years and over): No Food Insecurity: No Food Insecurity (11/26/2023) Food Insecurity Do you need food for this week? (Adult - for ages 18 years and over): No Transportation Needs: No Transportation Needs (11/26/2023) Transportation Needs Do you have trouble getting a ride to medical visits or work? (Adult - for ages 18 years and over):Never True Social Connections: Socially Integrated (11/26/2023) Social Connections How often do you feel lonely or isolated from those around you? (Adult - for ages 18 years and over): Never Housing Stability: Low Risk (11/26/2023) Housing Stability Do you currently live in a care home or have no steady place to sleep at night? (Adult - for ages 18 years and over): No Do you think you are at risk of becoming homeless? (Adult - for ages 18 years and over): No Labs: Lab Results CBC HGB: HGB Date Value 05/09/2024 11.5 g/dL (L) 03/31/2024 12.0 G/DL HCT: HCT (%) Date Value 05/09/2024 34.6 (L) Platelets: PLT (K/uL) Date Value 05/09/2024 227 Type and Screen ABO/RHD A positve Rubella IGG Antibody Rubella IgG Antibody (no units) Date Value 11/29/2023 Positive (A) One Hour Gestational Glucose, 50G Latest Reference Range & Units 04/14/24 09:34 50-g Gestational Glucose, 1 Hour 70 - 129 mg/dL 113 HIV AG&AB Screen w/Confirmation Latest Reference Range & Units 11/29/23 09:49 HIV Antigen & Antibody Negative Negative Hep B Surface Antigen Hepatitis B Surface Antigen (no units) Date Value 11/29/2023 Negative Hepatitis C Antibody Hepatitis C Antibody (no units) Date Value 11/29/2023 Negative Chlamydia Amplified Chlamydia Trachomatis Result (no units) Date Value 11/29/2023 Negative Neisseria Amplified Neisseria Gonorrhoeae Result (no units) Date Value 11/29/2023 Negative PHYSICAL EXAM: BP 118/72 | Temp 36.7 C (98.1 F) | Ht 1.626 m (5' 4") | Wt 87.5 kg (193 lb) | LMP 10/01/2023 | BMI 33.13 kg/m | BSA 1.99 m Body mass index is 33.13 kg/m. Neuro: A&O X3. Lungs: No resp distress, CTA Heart: Regular rate & rhythm Abdomen:Gravid, non-tender FH: 37 FHT 159, noted multiple movements during FHT External genitalia: Normal anatomy, no lesions or erythema GBS collected Cx: FT/thick posterior Extremities: No deep calf tenderness bilaterally. No pathologic edema. Batch Blender Documentation Provider requested slide maker. Name of slide maker: Richard Burton LPN A: 39 year old at 36w1d by LMP and 9 week ultrasound with Estimated Date of Delivery: 07/07/24 Previous x1 Desires elective repeat Desires permanent sterilization Antepartum anemia History of gastric bypass Advanced maternal age P: Labor and preeclampsia warnings reviewed Sign consents day of surgery with MD Preop orders placed Proceed with case as scheduled, sooner if indicated Samina Flores MD, Ph.D., FACOG [address] [facility] [place] [address] [address] [facility] [place] [address] 06/10/2024 0870 This chart was completed in part utilizing [employer] Speech Voice Recognition Software. Grammatical errors, random word insertions, prounoun errors, and incomplete sentences are an occasional consequence of this system due to software limitations, ambient noise, and hardware issues. Any formal questions or concerns about the content, text, or information contained within the body of this dictation should be directly addressed to the provider for clarification. documented in this encounter Nursing Notes * Julia Sandoval LPN - 06/10/2024 8:35 AM EDT 36w1d GBS today. Pre-op visit, [facility] 07/02/24. documented in this encounter Plan of Treatment Upcoming Encounters Date Type Department Care Team (Late st Contact Info) Description 06/17/2024 8:30 AM EDT Office Visit Gynecology/Obstetrics [facility] [address] [place] [address] Mima Membreno CRNP [address] [place] [address] 06/24/2024 8:30 AM EDT Office Visit Gynecology/Obstetrics [facility] [address] [place] [address] Mima Membreno CRNP [address] [place] [address] 06/30/2024 9:00 AM EDT Office Visit Gynecology/Obstetrics [facility] [address] [place] [address] Lavonne Babin PA-C [address] [place] [address] 07/09/2024 10:30 AM EDT Office Visit Gynecology/Obstetrics [facility] [address] [place] [address] Mima Membreno CRNP [address] [place] [address] 09/11/2024 9:00 AM EDT Office Visit Nutrition & Weight Management, [facility] [address] [place] [address] [place] Laura PA-C [address] [place] [address] Pending Results Name Type Priority Associated Diagnoses Date /Time GROUP B STREP CULTURE/PCR Lab Routine 36 weeks gestation of 06/10/2024 9:08 AM EDT Scheduled Orders Name Type Priority Associated Diagnoses Orde r Schedule GROUP B STREP CULTURE/PCR Lab Routine 36 weeks gestation of Expected: 06/10/2024, Expires: 06/10/2025 Health Maintenance Due Date Last Done Comments Hepatitis B Vaccine (1 of 3 - 19+ 3-dose series) 2006 Depression Monitoring 05/01/2020 05/01/2019 COVID-19 Vaccine ( season) 2023 03/04/2021 Influenza Vaccine (FLU shot) (#1) 2024 08/25/2023, 09/21/2021, 09/03/2018, Additional history exists Pap Smear 06/09/2026 06/09/2023, 12/28, 01/21/2020, Additional history exists Diabetes Screening 04/03/2027 04/03/2024, 0 03/31/2024, 09/10/2023, Additional history exists Cervical Cancer Screening 06/09/2028 HPV/Co-Test 06/09/2028 06/09/2023 DTaP,Tdap,and Td Vaccines (5 - Td or Tdap) 04/14/2034 04/14/2024, 01/12/2022, 12/25/2011, Additional history exists HPV (Gardasil) Vaccine Completed 0, 03/14/2010, 11/09/2009, Additional history exists MENINGOCOCCAL (MENACTRA/MENVEO) Aged Out No longer eligible based on patient's age to complete this topic Pneumococcal Vaccine: Pediatrics (0 to 5 Years) and At-Risk Patients (6 to 64 Years) Aged Out No longer eligible based on patient's age to complete this topic documented as of this encounter Medical Devices Not on filedocumented as of this encounter Visit Diagnoses Diagnosis 36 weeks gestation of - Primary state, incidental High-risk , third trimester Previous bariatric surgery affecting , antepartum H/O section Other postprocedural status Antepartum multigravida of advanced maternal age History of gestational diabetes Personal history of gestational diabetes Supervision of high-risk , unspecified trimester Depression complicating , antepartum Mental disorders of mother, antepartum documented in this encounter Advance Directives * Full Code (Latest Code Status on File) Date Activated Date Inactivated Comments 08/26/2019 11:42 AM 08/27/2019 4:15 PM This order reflects the patients wishes and were consensually agreed upon. * Full Code Date Activated Date Inactivated Comments 08/26/2019 6:51 AM 08/26/2019 11:42 AM This order reflects the patients wishes and were consensually agreed upon. Care Teams Signals Officer Relationship Specialty Start Date End Date Sheila Melendez PA-C [address] [place] [address], [place] [address] PCP - General Physician Digital Operations Analyst 01/27/15 documented as of this encounter
--- OUTSIDE RECORDS SUMMARY | 2024-07-02 08:02 | External Medical Summary | Summary of Care ---
Author Name Unknown Organization [facility] Address [address] [facility] [place] [address] Phone [phone] Care Team Providers Care Surgical Scrub Technician Name Role Phone Sheila Melendez PA-C Primary Care Provide r Reason for Visit * Reason Comments Return Visit Encounter Details Date Type Department Care Team (Late st Contact Info) Description 06/30/2024 9:00 AM EDT Office Visit Gynecology/Obstetric s [facility] [address] [place] [address] Lavonne Babin PA-C [address] [place] [address] Supervision of high-risk , unspecified trimester*; affected by previous bariatric surgery, currently in third trimester; Depression complicating , antepartum; GBS carrier; History of gestational diabetes; Antepartum multigravida of advanced maternal age; H/O section Allergies Active Allergy Reactions Criticality Noted Date Comments Enoxaparin Sodium Rash 09/10/2019 documented as of this encounter (statuses as of 06/30/2024) Medications Medication Sig Dispensed Refills Start Date [...] MG Oral Capsule Take by mouth. Active [place]-3 Fatty Acids 1000 MG Oral Capsule (OMEGA-3) [...] mg intravenously once a week. 04/08/2024 Active Citalopram Hydrobromide 20 MG Oral Tablet (CeleXA) TAKE 1/2 TABLET (10MG) BY MOUTH ONCE DAILY FOR 1-2 DAYS, THEN TAKE 1 TABLET (20MG) BY MOUTH ONCE DAILY FOR 1 WEEK, THEN TAKE 1 AND 1/2 TABLETS (30MG) BY MOUTH ONCE DAILY THEREAFTER 06/06/2024 Active Hospital, Clinic, or Other Facility Administered Medication Ordered Dose Route Frequency Start Date End Date Status vitamin b-12 (Cyanocobalamin) inj 1,000 mcgIndications:Encounter for supervision of normal first in first trimester,S/P bariatric surgery 1000 mcg IM [id number] 08/22/2021 Active documented as of this encounter (statuses as of 06/30/2024) Active Problems Problem Noted Date Diagnosed Date Antepartum anemia 04/14/2024 History of gestational diabetes 11/29/2023 Overview: Early glucola Antepartum multigravida of advanced maternal age 0111/29/2023 H/O section 11/29/2023 Overview: Desires repeat c/s with BTL Iron deficiency anemia rossana kaufmany to inadequate dietary iron intake 09/18/2023 GBS carrier 03/10/2022 COVID-19 vaccine series started 01/20/2022 Overview: Upon [...] -Vitamin D 800 IU daily -Calcium citrate 5277-5056 mg daily (better absorbed than calcium carbonate) [...] as of this encounter (statuses as of 06/30/2024) Resolved Problems Problem Noted Date Diagnosed Date Resolved Date Genetic screening 01/20/2022 08/08/2022 Overview: I reviewed [...] first trimester of . Refer back to [facility] if this occurs. She should continue to have growth assessments with MFM while she is clinically hypothyroid. 6. If patient experiences thyroid goiter or nodule during , we recommend that she be referred to endocrinology for evaluation and management. is not a contraindication to fine needle aspiration but should be handled at the discretion of the project management it specialist. 7. For women with a history of [...] as of this encounter (statuses as of 06/30/2024) Immunizations Name Administration Dates Next Due HPV Vaccine, 4-Valent 03/14/2010,11/09/2009,08/26 Seasonal Influenza, PF, 6 M & above, IM , (FluLaval or Fluzone) 09/21/2021 TDAP (age 10 and older)(Boostrix) 04/14/2024, TDAP, Age 7 and older, IM (Adacel) 10/22/2009 10/22/2019 documented as of this encounter Social History [...] money to get more. Never true 11/26/2023 [place] Depression Scale Answer Date Recorded [place] Depression Scale Total 2 11/29/2023 The thought [...] Sign Reading Time Taken Comments Blood Pressure 112/70 06/30/2024 8:48 AM EDT Pulse - - Temperature - - Respiratory Rate - - Oxygen Saturation - - Inhaled Oxygen Concentration - - Weight 87.1 kg (192 lb) 06/30/2024 8:48 AM EDT Height 162.6 cm (5' 4") 06/30/2024 8:48 AM EDT Body Mass Index 32.96 06/30/2024 8:48 AM EDT documented in this encounter Functional [...] as of this encounter Progress Notes * Lavonne Babin PA-C - 06/30/2024 9:11 AM EDT 39w0d No concerns. C/S with BLT scheduled 07/02/2024. Reports contractions over last week. Lasting up to an hour then stop. None today. Declines cervicalcheck. Denies LOF, VB. Baby is active. [place] gender! Advised any regular contractions 6-8/hr, LOF, VB, or decreased FM. Call L&D right away. RTC for PP appointments Lavonne Babin PA-C documented in this encounter Nursing Notes * Julia Sandoval LPN - 06/30/2024 8:48 AM EDT 39w0d documented in this encounter Plan of Treatment Upcoming Encounters Date Type Department Care Team (Late st Contact Info) Description 06/30/2024 10:00 AM EDT Nurse Only Nutrition & Weight Management, [facility] [address] [place] [address] [place], Nurse Gi Nutrition [facility] [address] [facility] [place] [address] Arrived 07/09/2024 10:30 AM EDT Office Visit Gynecology/Obstetrics [facility] [address] [place] [address] Mima Membreno CRNP [address] [facility] [place] [address] 09/11/2024 9:00 AM EDT Office Visit Nutrition & Weight Management, [facility] [address] [place] [address] [place] Laura PA-C [address] [place] [address] Health Maintenance Due Date Last Done Comments [...] as of this encounter Visit Diagnoses Diagnosis Supervision of high-risk , unspecified trimester- Primary affected by previous bariatric surgery, currently in third trimester Depression complicating , antepartum Mental disorders of mother, antepartum GBS carrier Carrier or suspected carrier of Group B streptococcus History of gestational diabetes Personal history of gestational diabetes Antepartum multigravida of advanced maternal age H/O section Other postprocedural status 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 documented in this encounter Advance Directives * Full Code (Latest Code Status on File) Date Activated Date Inactivated Comments 08/26/2019 11:42 AM 08/27/2019 4:15 PM This order reflects the patients wishes and were consensually agreed upon. * Full Code Date Activated Date Inactivated Comments 08/26/2019 6:51 AM 08/26/2019 11:42 AM This order reflects the patients wishes and were consensually agreed upon. Care Teams Surgical Scrub Technician Relationship Specialty Start Date End Date Sheila Melendez PA-C [address] [place] [address], [place] [address] PCP - General Physician Epic Willow Specialist 01/27/15 documented as of this encounter
--- OUTSIDE RECORDS SUMMARY | 2024-07-02 08:02 | External Medical Summary | Summary of Care ---
Author Name Unknown Organization [facility] Address [address] [facility] [address] Phone [phone] Care Team Providers Care Retail Sales Clerk Name Role Phone Sheila Melendez PA-C Primary Care Provide r Reason for Visit * Reason Onset Date Comments Test Results 06/11/2024 Encounter Details Date Type Department Care Team (Late st Contact Info) Description 06/11/2024 Telephone Gynecology/Obstetrics [facility] [address] [facility] [place] [address] Samina Flores MD [address] [facility] [place] [address] Test Results Allergies Active Allergy Reactions Criticality Noted Date Comments Enoxaparin Sodium Rash 09/10/2019 documented as of this encounter (statuses as of 06/11/2024) Medications Medication Sig Dispensed Refills Start Date [...] MG Oral Capsule Take by mouth. Active [place]-3 Fatty Acids 1000 MG Oral Capsule (OMEGA-3) [...] first trimester,S/P bariatric surgery 1000 mcg IM [id number] 08/22/2021 Active documented as of this encounter (statuses as of 06/11/2024) Active Problems Problem Noted Date Diagnosed Date Antepartum anemia 04/14/2024 History of gestational diabetes 11/29/2023 Overview: Early glucola Antepartum multigravida of advanced maternal age 0111/29/2023 H/O section 11/29/2023 Overview: Desires repeat c/s with BTL Iron deficiency anemia secon gavin to inadequate dietary iron intake 09/18/2023 GBS [...] -Vitamin D 800 IU daily -Calcium citrate 8590-3087 mg daily (better absorbed than calcium carbonate) [...] as of this encounter (statuses as of 06/11/2024) Resolved Problems Problem Noted Date Diagnosed Date [...] to patient/nutrition appt this week 02/13 stable / F stable, several high PP/email to patient [...] be handled at the discretion of the legal job titles. 7. For women with a history of [...] as of this encounter (statuses as of 06/11/2024) Immunizations Name Administration Dates Next Due HPV [...] money to get more. Never true 11/26/2023 [place] Depression Scale Answer Date Recorded [place] Depression Scale Total 2 11/29/2023 The thought [...] on file documented as of this encounter Functional Status Functional Status Response [...] No 08/26/2019 documented as of this encounter Miscellaneous Notes * Telephone Encounter - Julia Sandoval LPN - 06/11/2024 2:21 PM EDT Sent myg. * Telephone Encounter - Julia Sandoval LPN - 06/11/2024 1:55 PM EDT ----- Message from Samina Flores MD sent at 06/11/2024 12:02 PM EDT ----- Please kindly let patient know GBS swab was positive, if her water breaks or she goes into labor before her she will need antibiotics Thank you ----- Message ----- From: Sky Santana Automated Processing Sent: 06/11/2024 11:07 AM EDT To: Samina Flores MD documented in this encounter Plan of Treatment Upcoming Encounters Date Type Department Care Team (Late st Contact Info) Description 06/17/2024 8:30 AM EDT Office Visit Gynecology/Obstetrics [address] [place] [address] Mima Membreno CRNP [address] [place] [address] 06/24/2024 8:30 AM EDT Office Visit Gynecology/Obstetrics [facility] [address] [place], [place] [address] Mima Membreno CRNP [address] [place] [address] 06/30/2024 9:00 AM EDT Office Visit Gynecology/Obstetrics [facility] [address] [place] [address] Lavonne Babin PA-C [address] [place] [address] 07/09/2024 10:30 AM EDT Office Visit Gynecology/Obstetrics [facility] [address] [place] [address] Mima Membreno CRNP [address] [place], [place] [address] 09/11/2024 9:00 AM EDT Office Visit Nutrition & Weight Management, [facility] [address] [place] [address] [place] Laura PA-C [address] [place] [address] Health Maintenance Due Date Last Done Comments Hepatitis B Vaccine (1 of 3 - 19+ 3-dose series) 2006 Depression Monitoring 05/01/2020 05/01/2019 COVID-19 Vaccine (2 - 2022-24 season) 2023 03/04/2021 Influenza Vaccine (FLU shot) [...] Not on filedocumented as of this encounter Advance Directives * Full Code (Latest Code Status on File) Date Activated Date Inactivated Comments 08/26/2019 11:42 AM 08/27/2019 4:15 PM This order reflects the patients wishes and were consensually agreed upon. * Full Code Date Activated Date Inactivated Comments 08/26/2019 6:51 AM 08/26/2019 11:42 AM This order reflects the patients wishes and were consensually agreed upon. Care Teams Retail Sales Clerk Relationship Specialty Start Date End Date Sheila Melendez PA-C [address] [place], [place] [address] [address] PCP - General Physician Woodworking Shop Laborer 01/27/15 documented as of this encounter
--- OUTSIDE RECORDS SUMMARY | 2024-07-02 08:02 | External Medical Summary | Summary of Care ---
Author Name Unknown Organization [facility] Address [address] [facility] [place] [address] Phone [phone] Care Team Providers Care Furniture Upholstery Mechanic Name Role Phone Sheila Melendez PA-C Primary Care Provide r Reason for Visit * Reason Comments Return Visit Encounter Details Date Type Department Care Team (Late st Contact Info) Description 06/17/2024 8:30 AM EDT Office Visit Gynecology/Obstetric s Robin Jones [address] [place] [address] Mima Membreno CRNP [address] [place] [address] Supervision of high-risk , unspecified trimester*; affected by previous bariatric surgery, currently in third trimester; Depression complicating , antepartum; History of gestational diabetes; Antepartum multigravida of advanced maternal age; H/O section; GBS carrier; tachycardia before the onset of labor [P03.810] Allergies Active Allergy Reactions Criticality Noted Date Comments Enoxaparin Sodium Rash 09/10/2019 documented as of this encounter (statuses as of 06/17/2024) Medications Medication Sig Dispensed Refills Start Date [...] MG Oral Capsule Take by mouth. Active [place]-3 Fatty Acids 1000 MG Oral Capsule (OMEGA-3) [...] first trimester,S/P bariatric surgery 1000 mcg IM [id number] 08/22/2021 Active documented as of this encounter (statuses as of 06/17/2024) Active Problems Problem Noted Date Diagnosed Date [...] -Vitamin D 800 IU daily -Calcium citrate 8454-6740 mg daily (better absorbed than calcium carbonate) [...] as of this encounter (statuses as of 06/17/2024) Resolved Problems Problem Noted Date Diagnosed Date [...] first trimester of . Refer back to [facility] if this occurs. She should continue to have growth assessments with MFM while she is clinically hypothyroid. 6. If patient experiences thyroid goiter or nodule during , we recommend that she be referred to endocrinology for evaluation and management. is not a contraindication to fine needle aspiration but should be handled at the discretion of the yarn examiner skeins. 7. For women with a history of [...] as of this encounter (statuses as of 06/17/2024) Immunizations Name Administration Dates Next Due HPV [...] money to get more. Never true 11/26/2023 [place] Depression Scale Answer Date Recorded [place] Depression Scale Total 2 11/29/2023 The thought [...] Sign Reading Time Taken Comments Blood Pressure 108/66 06/17/2024 8:19 AM EDT Pulse - - Temperature - - Respiratory Rate - - Oxygen Saturation - - Inhaled Oxygen Concentration - - Weight 88 kg (194 lb) 06/17/2024 8:19 AM EDT Height - - Body Mass Index 33.3 06/10/2024 8:34 AM EDT documented in this [...] as of this encounter Progress Notes * Mima Membreno CRNP - 06/17/2024 8:38 AM EDT 37w1d Baby is moving well, no LOF/bleeding. Having BH ctx nightly, erratic in timing. Some are more painful. Feels she is adequately hydrated. Reviewed when to call with concerns. tachycardia on doppler, gross movement noted while auscultating. NST reactive with normal baseline. 1 week return DERRICK Bradley ASSESSMENT assessment with Non-stress Test completed on 06/17/2024 at 37.1 weeks gestation for indicationof tachycardia. heart baseline: 140 bpm Variability: Moderate Decelerations: absent Accelerations: present Contractions: None NST start time: 0834 NST stop time: 0902 NST strip reviewed, interpreted, and approved by OB provider, DERRICK Bradley . NST strip stored in clinic storage file * Enid Rogers LPN - 06/17/2024 8:20 AM EDT 37w1d Denies vaginal bleeding/rom Noticing a lot of mc wheatley in the evenings documented in this encounter Plan of Treatment Upcoming Encounters Date Type Department Care Team (Late st Contact Info) Description 06/24/2024 8:30 AM EDT Office Visit [facility] [address] [place] [address] Mima Membreno CRNP [address] [place] [address] 06/30/2024 9:00 AM EDT Office Visit Gynecology/Obstetrics [facility] [address] [place] [address] Lavonne Babin PA-C [address] [place] [address] 07/09/2024 10:30 AM EDT Office Visit Gynecology/Obstetric[facility] [address] [place] [address] Mima Membreno CRNP [address] [place] [address] 09/11/2024 9:00 AM EDT Office Visit Nutrition & Weight Management, [facility] [address] [place] [address] Marina Laura PA-C [address] [place] [address] Health Maintenance Due Date Last Done Comments Hepatitis B Vaccine (1 of 3 - 19+ 3-dose series) 2006 Depression Monitoring 05/01/2020 05/01/2019 COVID-19 Vaccine (2022- season) 2023 03/04/2021 Influenza Vaccine (FLU shot) [...] , antepartum Mental disorders of mother, antepartum History of gestational diabetes Personal history of gestational diabetes Antepartum multigravida of advanced maternal age H/O section Other postprocedural status GBS carrier Carrier or suspected carrier of Group B streptococcus tachycardia before the onset of labor [P03.810] Abnormality in heart rate or rhythm before the onset of labor documented in this encounter Advance Directives * Full Code (Latest Code Status on File) Date Activated Date Inactivated Comments 08/26/2019 11:42 AM 08/27/2019 4:15 PM This order reflects the patients wishes and were consensually agreed upon. * Full Code Date Activated Date Inactivated Comments 08/26/2019 6:51 AM 08/26/2019 11:42 AM This order reflects the patients wishes and were consensually agreed upon. Care Teams Furniture Upholstery Mechanic Relationship Specialty Start Date End Date Sheila Melendez PA-C [address] [facility] [address] PCP - General Physician Fmd Teacher 01/27/15 documented as of this encounter
--- OUTSIDE RECORDS SUMMARY | 2024-07-02 08:02 | External Medical Summary | Summary of Care ---
Author Name Unknown Organization [facility] Address [address] [facility] [place] [address] Phone [phone] Care Team Providers Care Windows Server Engineer Name Role Phone Sheila Melendez PA-C Primary Care Provide r Encounter Details Date Type Department Care Team (Late st Contact Info) Description 06/30/2024 10:00 AM EDT Nurse Only Nutrition & Weight Management, [facility] [address] [facility] [place] [address] [facility], Nurse Gi Nutrition [facility] [address] [facility] [place] [address] Arrived Allergies Active Allergy Reactions Criticality Noted Date [...] MG Oral Capsule Take by mouth. Active [place]-3 Fatty Acids 1000 MG Oral Capsule (OMEGA-3) [...] first trimester,S/P bariatric surgery 1000 mcg IM [id number] 08/22/2021 Active documented as of this encounter [...] -Vitamin D 800 IU daily -Calcium citrate 0266-8999 mg daily (better absorbed than calcium carbonate) [...] be handled at the discretion of the credit card specialist. 7. For women with a history [...] money to get more. Never true 11/26/2023 [place] Depression Scale Answer Date Recorded [place] Depression Scale Total 2 11/29/2023 The thought [...] (15 years old or older) No 08/26/20 Cognitive Status Response Date of Assessm ent Because of a physical, menta l, or emotional condition, do you have serious difficulty concentrating, remembering, or making decisions? (5 years old or older) No 08/26/2019 documented as of this encounter Progress Notes * Chepe Hill LPN - 06/30/2024 9:12 AM EDT Pre-Administration Time Out Procedure Performed: Yes Patient Identified (Ask Name/Date of ): Yes Does the patient have a fever greater than 101 degrees today? No Patient allergic to latex? No Has the patient ever fainted after receiving an injection? No VFC Stock: No Injection(s) verified: Yes, Injection Name: B12 Verified Side and Site: Yes Verified Shot(s) with Parent(s)/Patient: Yes documented in this encounter Plan of Treatment Upcoming Encounters Date Type Department Care Team (Late st Contact Info) Description 07/09/2024 10:30 AM EDT Office Visit Gynecology/Obstetrics Robin Jones [address] [place] [address] Mima Membreno CRNP [address] [place] [address] 09/11/2024 9:00 AM EDT Office Visit Nutrition & Weight Management, [facility] [address] [place] [address] Marina Laura PA-C [address] [place] [address] Health Maintenance Due Date Last Done Comments [...] as of this encounter Visit Diagnoses Diagnosis 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 documented in this encounter Administered Medications Active Administered Medications - up to 3 most recent administrations Medication Order MAR Action Action Date Dose Rate Site vitamin b-12 (Cyanocobalamin) inj 1,000 mcg 1,000 mcg, Intramuscular, [id number], First dose on Sun08/22/21 at 1445, Until Discontinued Given 06/30/2024 9:17 AM EDT 1,000 mcg Deltoid Left Upper Given 05/27/2024 1:51 PM EDT 1,000 mcg De ltoid Left Upper Given 05/01/2024 1:29 PM EDT 1,000 mcg De ltoid Left Upper documented in this encounter Advance Directives * Full Code (Latest Code Status on File) Date Activated Date Inactivated Comments 08/26/2019 11:42 AM 08/27/2019 4:15 PM This order reflects the patients wishes and were consensually agreed upon. * Full Code Date Activated Date Inactivated Comments 08/26/2019 6:51 AM 08/26/2019 11:42 AM This order reflects the patients wishes and were consensually agreed upon. Care Teams Windows Server Engineer Relationship Specialty Start Date End Date Sheila Melendez PA-C [address] [place] [address], [place] [address] PCP - General Physician Cna Caregiver 01/27/15 documented as of this encounter
--- OUTSIDE RECORDS SUMMARY | 2024-07-02 08:02 | External Medical Summary | Summary of Care ---
Author Name Unknown Organization [facility] Address [address] [facility] [place] [place] [address] Phone [phone] Care Team Providers Care Iron Carrier Name Role Phone Sheila Melendez PA-C Primary Care Provide r Reason for Visit * Reason Comments Return Visit Pre-Op Testing Encounter Details Date Type Department Care Team (Late st Contact Info) Description 06/10/2024 8:45 AM EDT Office Visit Gynecology/Obstetric s [facility] [address] [facility] [place] [address] Samina Flores MD [address] [place] [address] 36 weeks gestation of [...] MG Oral Capsule Take by mouth. Active [place]-3 Fatty Acids 1000 MG Oral Capsule (OMEGA-3) [...] first trimester,S/P bariatric surgery 1000 mcg IM [id number] 08/22/2021 Active documented as of this encounter [...] -Vitamin D 800 IU daily -Calcium citrate 5483-5544 mg daily (better absorbed than calcium carbonate) [...] be handled at the discretion of the crochet beader. 7. For women with a history of [...] money to get more. Never true 11/26/2023 [place] Depression Scale Answer Date Recorded [place] Depression Scale Total 2 11/29/2023 The thought [...] July 02, [address] Hardy at [facility]. Patient denies contractions, leaking of fluid or vaginal bleeding. Felling less this AM compared toearlier. Having worsening [place] throughout day. Would like to be [...] Administered Date(s) Administered Covid-19 Ad26, Single Dose (Hot Dot/J&J) 03/04/2021 HPV Vaccine, 4-Valent 03/14/2010 Seasonal Influenza, [...] x 3 EGD, FLEXIBLE, DIAGNOSTIC 03/14/2019 [facility] esophag[facility] EGD, FLEXIBLE, DIAGNOSTIC N/A 08/26/2019 ESOPHAGOGASTRODUODENOSCOPY (EGD), FLEXIBLE, TRANSORAL, DIAGNOSTIC performed by Leon Blunt MD at [facility] LAPAROSCOPE PROCEDURE, LIVER N/A 08/26/2019 UNLISTED LAPAROSCOPIC PROCEDURE LIVER performed by Leon Blunt MD at [facility] LAPAROSCOPIC GASTRIC BYPASS/TANK-EN-Y N/A 08/26/2019 ROBOTIC LAPAROSCOPIC GASTRIC RESTRICTIVE BYPASS TANK EN Y performed by Leon Blunt MD at [facility] VA DELIVERY ONLY 03/27/2022 REMOVE TONSILS & ADENOIDS, [...] Julius Occupational History 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 exercise: walking. diet: no. shinto/sikhism: druze Social Determinants of Health Financial Resource Strain: [...] Stability Do you currently live in a snf or have no steady place to sleep [...] deep calf tenderness bilaterally. No pathologic edema. Expenditure Requisition Clerk Documentation Provider requested railway head tender. Name of railway head tender: Richard Burton LPN A: 39 year old [...] indicated Samina Flores MD, Ph.D., FACOG [address] [facility] [place] [address] [address] [facility] [place] [address] 06/10/2024 0849 This chart was completed in part utilizing EGEN Speech Voice Recognition Software. Grammatical errors, random [...] Robert [address] [place] [address] Mima Membreno CRNP [address] [place] [address] 06/24/2024 8:30 AM EDT Office Visit Gynecology/Obstetrics [facility] [address] [place] [address] Mima Membreno CRNP [address] [place] [address] 06/30/2024 9:00 AM EDT Office Visit Gynecology/Obstetrics [facility] [address] [place] [address] Lavonne Babin PA-C [address] [place] [address] 07/09/2024 10:30 AM EDT Office Visit Gynecology/Obstetrics [facility] [address] [place] [address] Mima Membreno CRNP [address] [place] [address] 09/11/2024 9:00 AM EDT Office Visit Nutrition & Weight Management, [facility] [address] [place] [address] Marina Laura PA-C [address] [place] [address] Pending Results Name Type Priority Associated Diagnoses [...] and were consensually agreed upon. Care Teams Iron Carrier Relationship Specialty Start Date End Date Sheila Melendez PA-C [address] [place] [address], [place] [address] PCP - General Physician Materials Tech 01/27/15 documented as of this encounter
--- OUTSIDE RECORDS SUMMARY | 2024-07-02 08:02 | External Medical Summary | Summary of Care ---
Author Name Unknown Organization [facility] Address [address] [facility] [place] [address] Phone [phone] Care Team Providers Care Upholstery Restorer Name Role Phone Sheila Melendez PA-C Primary Care Provide r Reason for Visit * Reason Comments Return Visit Encounter Details Date Type Department Care Team (Late st Contact Info) Description 06/24/2024 8:30 AM EDT Office Visit Gynecology/Obstetric s Robin Jones [address] [place] [address] Mima Membreno CRNP [address] [place] [address] Supervision of high-risk , unspecified trimester*; affected by previous bariatric surgery, currently in third trimester; Depression complicating , antepartum; GBS carrier; History of gestational diabetes; Antepartum multigravida of advanced maternal age; H/O section Allergies Active Allergy Reactions Criticality Noted Date Comments Enoxaparin Sodium Rash 09/10/2019 documented as of this encounter (statuses as of 06/24/2024) Medications Medication Sig Dispensed Refills Start Date [...] MG Oral Capsule Take by mouth. Active [place]-3 Fatty Acids 1000 MG Oral Capsule (OMEGA-3) [...] first trimester,S/P bariatric surgery 1000 mcg IM [id number] 08/22/2021 Active documented as of this encounter (statuses as of 06/24/2024) Active Problems Problem Noted Date Diagnosed Date Antepartum anemia 04/14/2024 History of gestational diabetes 11/29/2023 Overview: Early glucola Antepartum multigravida of advanced maternal age 0111/29/2023 H/O section 11/29/2023 Overview: Desires repeat c/s with BTL Iron deficiency anemia rossana alonso to inadequate dietary iron intake 09/18/2023 GBS [...] -Vitamin D 800 IU daily -Calcium citrate 0391-8156 mg daily (better absorbed than calcium carbonate) [...] as of this encounter (statuses as of 06/24/2024) Resolved Problems Problem Noted Date Diagnosed Date [...] first trimester of . Refer back to [facility] if this occurs. She should continue to have growth assessments with MFM while she is clinically hypothyroid. 6. If patient experiences thyroid goiter or nodule during , we recommend that she be referred to endocrinology for evaluation and management. is not a contraindication to fine needle aspiration but should be handled at the discretion of the printer repair technician. 7. For women with a history of [...] as of this encounter (statuses as of 06/24/2024) Immunizations Name Administration Dates Next Due HPV [...] money to get more. Never true 11/26/2023 [place] Depression Scale Answer Date Recorded [place] Depression Scale Total 2 11/29/2023 The thought [...] Sign Reading Time Taken Comments Blood Pressure 100/62 06/24/2024 8:21 AM EDT Pulse - - Temperature - - Respiratory Rate - - Oxygen Saturation - - Inhaled Oxygen Concentration - - Weight 87.1 kg (192 lb) 06/24/2024 8:21 AM EDT Height 162.6 cm (5' 4") 06/24/2024 8:21 AM EDT Body Mass Index 32.96 06/24/2024 8:21 AM EDT documented in this encounter Functional [...] Progress Notes * Mima Membreno CRNP - 06/24/2024 8:38 AM EDT 38w1d Baby active. Had some painful ctx over the weekend, since subsided. Still some BH ctx. No LOF/bleeding. Advised to call with painful ctx q10 mins x1 hr, LOF, bleeding, or decreased FM; if she does not hear back from on-call provider, head to L&D. Cervix posterior, long, fingertip. Pt reassured. Seafood Processor Documentation Provider requested broadcast supervisor. Name of broadcast supervisor: Maria Ines 1 week return DERRICK Bradley * Maria Ines Jay LPN - 06/24/2024 8:23 AM EDT 38w1d Called over the weekend due to ctxs and pain and never received a call back from sergeant of corrections provider documented in this encounter Plan of Treatment Upcoming Encounters Date Type Department Care Team (Late st Contact Info) Description 06/30/2024 9:00 AM EDT Office Visit Gynecology/Obstetrics [facility] [address] [place] [address] Lavonne Babin PA-C [address] [place] [address] 07/09/2024 10:30 AM EDT Office Visit Gynecology/Obstetrics [facility] [address] [place] [address] Mima Membreno CRNP [address] [place] [address] 09/11/2024 9:00 AM EDT Office Visit Nutrition & Weight Management, [facility] [address] [place] [address] Marina Laura PA-C [address] [place] [address] Health Maintenance Due Date Last Done Comments [...] Completed 0, 03/14/2010, 11/09/2009, Additional history exists HIV Screening Completed 11/29/2023, 08/24/2021 Hepatitis C Screening Completed 11/29/2023 , 11/29/2023, 11/29/2023 MENINGOCOCCAL (MENACTRA/MENVEO) Aged Out No longer eligible [...] maternal age H/O section Other postprocedural status documented in this encounter Advance Directives * Full Code (Latest Code Status on File) Date Activated Date Inactivated Comments 08/26/2019 11:42 AM 08/27/2019 4:15 PM This order reflects the patients wishes and were consensually agreed upon. * Full Code Date Activated Date Inactivated Comments 08/26/2019 6:51 AM 08/26/2019 11:42 AM This order reflects the patients wishes and were consensually agreed upon. Care Teams Upholstery Restorer Relationship Specialty Start Date End Date Sheila Melendez PA-C [address] [place] [address] PCP - General Physician Jboss Architect 01/27/15 documented as of this encounter
--- OUTSIDE RECORDS SUMMARY | 2024-07-02 08:03 | External Medical Summary ---
Author Name Unknown Address Unknown Organization [id number]:LABORATORY [facility] - [facility] [address] [place] [address] Laboratory Report Ordering Provider Test Date Status ROSALINDASCOOTERDIANA 06/10/2024 09:08:30 Final Observation Date Value Abnormality Reference (Units ) Status Streptococcus agalactiae DNA [Presence] in Specimen by TERI with probe detection 06/10/2024 09:08:30 Positive Abnormal Negative Final Group B Streptococcus detect ed by culture-enhanced PCR (amplified probe). GBS GBSCT - [facility] 06/10/2024 09:08:30 14.7 Final GBS SPCCT - [facility] 06/10/2024 09:08:30 0.0 Final Performing Location LABORATORY [facility] - [address] [place] [address]
--- OUTSIDE RECORDS SUMMARY | 2024-07-02 08:03 | External Medical Summary ---
Author Name Unknown Address Unknown Organization [id number]:[facility] [place] [facility] [place] [address] Laboratory Report Ordering Provider Test Date Status TRISH BANEGAS 05/09/2024 10:19:16 Final Observation Date Value Abnormality Reference (Units ) Status WBC, Total 05/09/2024 10:19:16 7.89 4.00-10.8 0 (K/uL) Final RBC 05/09/2024 10:19:16 3.80 3.85-5.15 (M/uL) Final Hemoglobin 05/09/2024 10:19:16 11.5 Below low normal 12 .0-15.3 (g/dL) Final Anemia reflex testing trigge rs on a HGB < 12.0 for Females and HGB < 13.0 for Males in accordance with the WHO Anemia Guidelines
Anemia reflex testing triggers on a HGB < 12.0 for Females and HGB < 13.0 for Males in accordance with the WHO Anemia Guidelines HCT 05/09/2024 10:19:16 34.6 Below low normal 36. 0-45.2 (%) Final MCV 05/09/2024 10:19:16 91.1 81.5-97.5 (fL) Final MCH 05/09/2024 10:19:16 30.3 27.0-34.0 (pg) Final MCHC 05/09/2024 10:19:16 33.2 32.0-36.0 (g/dL) Final RDW 05/09/2024 10:19:16 13.2 11.5-15.5 (%) Final Platelets 05/09/2024 10:19:16 227 140-400 (K /uL) Final MPV 05/09/2024 10:19:16 9.5 6.6-11.1 ( fL) Final Nucleated erythrocytes/100 leukocytes [Ratio] in Blood by Automated count 05/09/2024 10:19:16 0 <=0 (/100 WBCs) Final Performing Location LAB[facility]ATORY [facility] - [address] [facility] [id number]
--- OUTSIDE RECORDS SUMMARY | 2024-07-02 08:03 | External Medical Summary ---
Author Name Unknown Address Unknown Organization [id number]:[facility] [place] [address] [place] [address] Laboratory Report Ordering Provider Test Date Status TRISH BANEGAS 05/09/2024 10:19:16 Final Observation Date Value Abnormality Reference (Units ) Status Vitamin B12 05/09/2024 10:19:16 051 [id number] (pg/mL) Final Performing Location LABORATORY [facility] - [address] [place] [address]
--- OUTSIDE RECORDS SUMMARY | 2024-07-02 08:03 | External Medical Summary ---
Author Name Unknown Address Unknown Organization K01:LABORATORY [facility] - [address] [place] [address] Laboratory Report Ordering Provider Test Date Status TRISH BANEGAS 05/09/2024 10:19:16 Final Observation Date Value Abnormality Reference (Units ) Status Ferritin 05/09/2024 10:19:16 243 Above high normal 13 -150 (ng/mL) Final Performing Location LABORATORY [facility] - [address] [place] [address]
--- OUTSIDE RECORDS SUMMARY | 2024-07-02 08:03 | External Medical Summary | Summary of Care ---
Author Name Unknown Organization [facility] Address [address] [facility] [place] [address] Phone [phone] Care Team Providers Care Horticultural Therapist Name Role Phone Sheila Melendez PA-C Primary Care Provide r Reason for Visit * Reason Comments Infusion Venofer 01/26 Encounter Details Date Type Department Care Team (Latest Contact Info) Description 05/02/2024 8:30 AM EDT Hem/Onc Treatment Hematology/Oncology Treatment, [address] [phone] Marissa, Chair [address] [address] Iron deficiency anemia secondary to inadequate dietary iron intake* Allergies Active Allergy Reactions Criticality Noted Date Comments Enoxaparin Sodium Rash 09/10/2019 documented as of this encounter (statuses as of 06/05/2024) Medications Medication Sig Dispensed Refills Start Date [...] MG Oral Capsule Take by mouth. Active [place]-3 Fatty Acids 1000 MG Oral Capsule (OMEGA-3) [...] first trimester,S/P bariatric surgery 1000 mcg IM [id number] 08/22/2021 Active documented as of this encounter (statuses as of 06/05/2024) Active Problems Problem Noted Date Diagnosed Date Antepartum anemia 04/14/2024 History of gestational diabetes 11/29/2023 Overview: Early glucola Antepartum multigravida of advanced maternal age 0111/29/2023 H/O section 11/29/2023 Overview: Desires repeat c/s with BTL Iron deficiency anemia secon gavin to inadequate dietary iron intake 09/18/2023 COVID-19 [...] -Vitamin D 800 IU daily -Calcium citrate 3490-3659 mg daily (better absorbed than calcium carbonate) [...] as of this encounter (statuses as of 06/05/2024) Resolved Problems Problem Noted Date Diagnosed Date [...] to patient/nutrition appt this week 02/13 stable 3/ F stable, several high PP/email to patient [...] be handled at the discretion of the cadmium liquor maker. 7. For women with a history of [...] as of this encounter (statuses as of 06/05/2024) Immunizations Name Administration Dates Next Due HPV [...] money to get more. Never true 11/26/2023 [place] Depression Scale Answer Date Recorded [place] Depression Scale Total 2 11/29/2023 The thought [...] No 11/26/2023 Does the household have a [facility] source of income? (Household - for ages [...] Sign Reading Time Taken Comments Blood Pressure 114/68 05/02/2024 8:25 AM EDT Pulse 82 05/02/2024 8:25 AM EDT Temperature 36.7 C (98.1 F) 05/02/2024 8:25 AM ED T Respiratory Rate 18 05/02/2024 8:25 AM EDT Oxygen Saturation 97% 05/02/2024 8:25 AM EDT Inhaled Oxygen Concentration - - Weight - - Height - - Body Mass Index - - documented in this encounter Functional Status Functional [...] No 08/26/2019 documented as of this encounter Nursing Notes * Sheila Harris LPN - 05/02/2024 8:27 AM EDT 0820: Pt arrived for Venofer 3/3 infusion. PIV in R metacarpal. Pt tolerated well. VSS. No complaints at this time. 1000: Pt tolerated Venofer infusion well. PIV removed intact. Pt to follow up with . Discharged in stable condition. documented in this encounter Plan of Treatment Upcoming Encounters Date Type Department Care Team (Late st Contact Info) Description 06/10/2024 8:45 AM EDT Office Visit Gynecology/Obstetric[facility] [address] [facility] [address] Samina Flores MD [address] [place] [address] [place] [address] 06/17/2024 8:30 AM EDT Office Visit Gynecology/Obstetrics [facility] [address] [place] [address] BackMima clark CRNP [address] [place] [address] 06/24/2024 8:30 AM EDT Office Visit Gynecology/Obstetrics [facility] [address] [place] [address] BackMima clark CRNP [address] [place] [address] 07/09/2024 10:30 AM EDT Office Visit Gynecology/Obstetrics [facility] [address] [place] [address] BackMima clark CRNP [address] [place] [address] 09/11/2024 9:00 AM EDT Office Visit Nutrition & Weight Management, [facility] [address] [place] [address] Marina Laura PA-C [address] [place] [address] Health Maintenance Due Date Last Done Comments [...] as of this encounter Visit Diagnoses Diagnosis Iron deficiency anemia secondary to inadequate dietary iron intake- Primary documented in this encounter Administered Medications Inactive Administered Medications - up to 3 most recent administrations Medication Order MAR Action Action Date Dose Rate Site Iron Sucrose (Venofer) 300 mg in NSS 250 mL ivpb 300 mg, IV Piggyback, ONCE, 1 dose, On Sun05/02/24 at 0945, Administer over 90 Minutes Start Infusion 05/02/2024 8:21 AM EDT 300 mg 180 mL/hr NSS infusion 500 mL, Intravenous, at 50 mL/hr, CONTINUOUS, Starting on Sun05/02/24 at 0915, Until Sun05/02/24 at 1535 Start Infusion 05/02/2024 8:21 AM EDT 500 mL 50 mL/hr documented in this encounter Advance Directives * Full Code (Latest Code Status on File) Date Activated Date Inactivated Comments 08/26/2019 11:42 AM 08/27/2019 4:15 PM This order reflects the patients wishes and were consensually agreed upon. * Full Code Date Activated Date Inactivated Comments 08/26/2019 6:51 AM 08/26/2019 11:42 AM This order reflects the patients wishes and were consensually agreed upon. Care Teams Horticultural Therapist Relationship Specialty Start Date End Date Sheila Melendez PA-C [address] [place] [address], [place] [address] PCP - General Physician College Dean 01/27/15 documented as of this encounter
--- OUTSIDE RECORDS SUMMARY | 2024-07-02 08:03 | External Medical Summary | Summary of Care ---
Author Name Unknown Organization [facility] Address [address] [facility] [place] [address] Phone [phone] Care Team Providers Care Director Of Public Relations Name Role Phone Sheila Melendez PA-C Primary Care Provide r Reason for Visit * Reason Comments Infusion Venofer 2/3 Encounter Details Date Type Department Care Team (Latest Contact Info) Description 04/25/2024 8:30 AM EDT Hem/Onc Treatment Hematology/Oncology Treatment, [address] [phone] Marissa, Chair 7 Hem On[address] [address] Iron deficiency anemia secondary to inadequate dietary iron intake* Allergies Active Allergy Reactions Criticality Noted Date Comments Enoxaparin Sodium Rash 09/10/2019 documented as of this encounter (statuses as of 05/01/2024) Medications Medication Sig Dispensed Refills Start Date [...] MG Oral Capsule Take by mouth. Active [place]-3 Fatty Acids 1000 MG Oral Capsule (OMEGA-3) [...] first trimester,S/P bariatric surgery 1000 mcg IM [id number] 08/22/2021 Active documented as of this encounter (statuses as of 05/01/2024) Active Problems Problem Noted Date Diagnosed Date [...] -Vitamin D 800 IU daily -Calcium citrate 4756-9812 mg daily (better absorbed than calcium carbonate) [...] as of this encounter (statuses as of 05/01/2024) Resolved Problems Problem Noted Date Diagnosed Date [...] be handled at the discretion of the railroad car letterer. 7. For women with a history of [...] as of this encounter (statuses as of 05/01/2024) Immunizations Name Administration Dates Next Due HPV [...] money to get more. Never true 11/26/2023 [place] Depression Scale Answer Date Recorded [place] Depression Scale Total 2 11/29/2023 The thought of harming myself has occurred to me . Never 11/29/2023 Estimated Date of Delivery Comme nts Yes [...] Sign Reading Time Taken Comments Blood Pressure 121/77 04/25/2024 8:39 AM EDT Pulse 83 04/25/2024 8:39 AM EDT Temperature 36.8 C (98.3 F) 04/25/2024 8:39 AM ED T Respiratory Rate 18 04/25/2024 8:39 AM EDT Oxygen Saturation 98% 04/25/2024 8:39 AM EDT Inhaled Oxygen Concentration - - [...] Nursing Notes * Sheila Harris LPN - 04/25/2024 8:40 AM EDT 0830: Chair 3. Pt arrived for Venofer 2/3 infusion. PIV in L metacarpal. Pt tolerated well. VSS. Nocomplaints at this time. 1010: Pt tolerated Venofer infusion well. PIV removed intact. Pt to return in one week. Discharged in stable condition. documented in this encounter Plan of Treatment Upcoming Encounters Date Type Department Care Team (Late st Contact Info) Description 05/02/2024 8:30 AM EDT Hem/Onc Treatment [facility]emat[facility], [place] [address] [facility] [phone] Marissa, Chair 4 Hem Onc Scen[place] [address] [facility] [address] [place] [address] 05/13/2024 8:30 AM EDT Office Visit Gynecology/Obstetrics [facility] [address] [place] [address] Mima Membreno CRNP [address] [place] [address] 05/27/2024 8:30 AM EDT Office Visit Gynecology/Obstetrics [facility] [address] [place] [address] Mima Membreno CRNP [address] [place] [address] 05/27/2024 9:30 AM EDT Nurse Only Nutrition & Weight Management, [facility] [address] [place] [address] Nurse Marlys Jones [address] [place] [address] 06/10/2024 8:45 AM EDT Office Visit Gynecology/Obstetrics [facility] [address] [place] [address] Samina Flores MD [address] [place] [address] [place] [address] 06/17/2024 8:30 AM EDT Office Visit Gynecology/Obstetrics [facility] [address] [place] [address] BackMima clark CRNP [address] [place] [address] 06/24/2024 8:30 AM EDT Office Visit Gynecology/Obstetrics [facility] [address] [place] [address] Mima Membreno CRNP [address] [place] [address] 07/09/2024 10:30 AM EDT Office Visit Gynecology/Obstetrics [facility] [address] [place] [address] Mima Membreno CRNP [address] [place] [address] 09/11/2024 9:00 AM EDT Office Visit Nutrition & Weight Management, [facility] [address] [place] [address] [place] Laura PA-C [address] [place] [address] Health Maintenance Due Date Last Done Comments Hepatitis B (1 of 3 - 19+ 3-dose series) 2006 COVID-19 Vaccine (2 - 2022- season) 2023 03/04/2021 Pap Smear 06/09/2026 06/09/2023, 12/28, 01/21/2020, Additional history exists Diabetes Screening 04/03/2027 04/03/2024, 0 03/31/2024, 09/10/2023, Additional history exists Cervical Cancer Screening 06/09/2028 HPV/Co-Test 06/09/2028 06/09/2023 DTaP,Tdap,and Td Vaccines (5 - Td or Tdap) 04/14/2034 04/14/2024, 01/12/2022, 12/25/2011, Additional history exists GARDASIL-HPV IMMUNIZATION SERIES Completed 03/14/2010, 03/14/2010, 11/09/2009, Additional history exists Influenza Vaccine (FLU shot) Completed , 09/21/2021, 09/03/2018, Additional history exists MENINGOCOCCAL (MENACTRA/MENVEO) Aged Out [...] mg, IV Piggyback, ONCE, 1 dose, On Sun04/25/24 at 1015, Administer over 90 Minutes Start Infusion 04/25/2024 8:35 AM EDT 300 mg 193.33 mL/hr NSS infusion 500 mL, Intravenous, at 50 mL/hr, CONTINUOUS, Starting on Sun04/25/24 at 0945, Until Sun04/25/24 at 1440 Start Infusion 04/25/2024 8:34 AM EDT 500 mL 50 mL/hr documented [...] and were consensually agreed upon. Care Teams Director Of Public Relations Relationship Specialty Start Date End Date Sheila Melendez PA-C [address] [place] [address], [place] [address] PCP - General Physician Elevator Mechanic Apprentice 01/27/15 documented as of this encounter
--- OUTSIDE RECORDS SUMMARY | 2024-07-02 08:03 | External Medical Summary ---
Author Name Unknown Address Unknown Organization [id number]:[facility] [place] [address] [place] [address] Laboratory Report Ordering Provider Test Date Status TRISH BANEGAS 05/09/2024 10:19:16 Final Observation Date Value Abnormality Reference (Units ) Status Folic Acid 05/09/2024 10:19:16 19.0 >4.5 (ng/ mL) Final Performing Location LAB[facility]ATORY [facility] - [address] [place] [address]
--- OUTSIDE RECORDS SUMMARY | 2024-07-02 08:03 | External Medical Summary ---
Author Name Unknown Address Unknown Organization K01[place] [place] [address] [facility] [place] [address] Laboratory Report Ordering Provider Test Date Status TRISH BANEGAS 05/09/2024 10:19:16 Final Observation Date Value Abnormality Reference (Units ) Status SYNC LEUKOCYTES IN BLOOD BY AUTOMATED COUNT 05/09/2024 10:19:16 7.89 4.00-10.80 (K/uL) Final Segs 05/09/2024 10:19:16 78.1 Above high normal 40.0-75.0 (%) Final Lymphs % 05/09/2024 10:19:16 12.8 Below low normal 18.0-42.0 (%) Final Monos 05/09/2024 10:19:16 7.6 1.0-11.0 (%) Final Eosinophils 05/09/2024 10:19:16 0.3 0.0-6.0 (%) Final Basos 05/09/2024 10:19:16 0.3 0.0-2.0 (%) Final Immature Granulocyte, Percent 05/09/2024 10:19:16 0.9 0.0-2.0 (%) Final Absolute Segs 05/09/2024 10:19:16 6.17 1.80-7.70 (K/uL) Final Lymphs, absolute 05/09/2024 10:19:16 1.01 1.00-4.80 (K/ul) Final Monos, Abs 05/09/2024 10:19:16 0.60 0.00-1.10 (K/uL) Final Eos, Abs 05/09/2024 10:19:16 0.02 0.00-0.70 (K/uL) Final Basos, Abs 05/09/2024 10:19:16 0.02 0.00-0.20 (K/uL) Final Immature Granulocytes, Number 05/09/2024 10:19:16 0.07 0.00-0.20 (K/uL) Final Performing Location [facility] [place] [address] [facility] [address]
--- OUTSIDE RECORDS SUMMARY | 2024-07-02 08:03 | External Medical Summary | Summary of Care ---
Author Name Unknown Organization [facility] Address [address] [facility] [place] [address] Phone [phone] Care Team Providers Care Client Success Manager Name Role Phone Sheila Melendez PA-C Primary Care Provide r Reason for Visit * Reason Comments IV Therapy Venofer 11/28 Encounter Details Date Type Department Care Team (Latest Contact Info) Description 04/18/2024 8:30 AM EDT Hem/Onc Treatment Hematology/Oncology Treatment, [address] [phone] Marissa, Chair 7 Hem On[address] [address] Iron deficiency anemia secondary to inadequate dietary iron intake* Allergies Active Allergy Reactions Criticality Noted Date Comments Enoxaparin Sodium Rash 09/10/2019 documented as of this encounter (statuses as of 05/05/2024) Medications Medication Sig Dispensed Refills Start Date [...] MG Oral Capsule Take by mouth. Active [place]-3 Fatty Acids 1000 MG Oral Capsule (OMEGA-3) [...] first trimester,S/P bariatric surgery 1000 mcg IM [id number] 08/22/2021 Active documented as of this encounter (statuses as of 05/05/2024) Active Problems Problem Noted Date Diagnosed Date [...] -Vitamin D 800 IU daily -Calcium citrate 1471-6401 mg daily (better absorbed than calcium carbonate) [...] as of this encounter (statuses as of 05/05/2024) Resolved Problems Problem Noted Date Diagnosed Date [...] be handled at the discretion of the motor bus driver. 7. For women with a history of [...] as of this encounter (statuses as of 05/05/2024) Immunizations Name Administration Dates Next Due HPV Vaccine, 4-Valent 03/14/2010,11/09/2009,08/26 Seasonal Influenza, PF, 6 M & above, IM , (FluLaval or Fluzone) 09/21/2021 TDAP (age 10 and older)(Boostrix) 04/14/2024, TDAP, Age 7 and older, IM (Adacel) 10/22/2009 10/22/2019 documented as of this encounter Social History Tobacco Use Types Packs/Day Years Used Date Smoking Tobacco: Never Smokeless Tobacco: Never Tobacco Cessation:Counseling Given: Not Answered Alcohol Use Standard Drinks/Week Comments Not Currently [...] money to get more. Never true 11/26/2023 [place] Depression Scale Answer Date Recorded [place] Depression Scale Total 2 11/29/2023 The thought [...] Sign Reading Time Taken Comments Blood Pressure 107/67 04/18/2024 8:40 AM EDT Pulse 75 04/18/2024 8:40 AM EDT Temperature 36.6 C (97.8 F) 04/18/2024 8:40 AM ED T Respiratory Rate 16 04/18/2024 8:40 AM EDT Oxygen Saturation 98% 04/18/2024 8:40 AM EDT Inhaled Oxygen Concentration - - [...] as of this encounter Nursing Notes * Aracelis Carlin LPN - 04/18/2024 10:16 AM EDT Patient completed IV therapy Venofer. IV access disconnected; site was cleaned and bandaged. Patient will return in 1 week. Patient discharged in stable condition. * Aracelis Cariln LPN - 04/18/2024 8:40 AM EDT Patient arrived Chair 10 for IV therapy Venofer 11/28. Vital signs are stable. IVP established; line flushed with ease; IV fluids connected and infusing. Call lowe within reach. documented in this encounter Plan of Treatment Upcoming Encounters Date Type Department Care Team (Late st Contact Info) Description 05/13/2024 8:30 AM EDT Office Visit Gynecology/Obstetrics [facility] [address] [place] [address] Mima Membreno CRNP [address] [place] [address] 05/27/2024 8:30 AM EDT Office [facility] [address] [place] [address] Mima Membreno CRNP [address] [place] [address] 05/27/2024 9:30 AM EDT Nurse Only [facility] [address] [place] [address] Robert Nurse Gi Nutrition [facility] [address] [place] [address] 06/10/2024 8:45 AM EDT Office [facility] [address] [place] [address] Samina Flores MD [address] [place] [address] [place] [address] 06/17/2024 8:30 AM EDT Office Visit Gynecology/Obstetrics [facility] [address] [place] [address] BackMima clark CRNP [address] [place] [address] 06/24/2024 8:30 AM EDT Office Visit Gynecology/Obstetrics [facility] [address] [place] [address] BackMima clark CRNP [address] [place] [address] 07/09/2024 10:30 AM EDT Office Visit Gynecology/Obstetrics [facility] [address] [place] [address] Mima Membreno CRNP [address] [place] [address] 09/11/2024 9:00 AM EDT Office Visit Nutrition & Weight Management, [facility] [address] [place] [address] Marina Laura PA-C [address] [place] [address] Health Maintenance Due Date Last Done Comments Hepatitis B (1 of 3 - 19+ 3-dose series) 2006 Depression Monitoring 05/01/2020 05/01/2019 COVID-19 Vaccine ( season) 2023 03/04/2021 Pap Smear 06/09/2026 06/09/2023, [...] mg, IV Piggyback, ONCE, 1 dose, On Sun04/18/24 at 1015, Administer over 90 Minutes Start Infusion 04/18/2024 8:34 AM EDT 300 mg 193.33 mL/hr NSS infusion 500 mL, Intravenous, at 50 mL/hr, CONTINUOUS, Starting on Sun04/18/24 at 0945, Until Sun04/18/24 at 1418 Start Infusion 04/18/2024 8:34 AM EDT 500 mL 50 mL/hr [...] and were consensually agreed upon. Care Teams Client Success Manager Relationship Specialty Start Date End Date Sheila Melendez PA-C [address] [place] [address], [place] [address] PCP - General Physician Terminal Carman 01/27/15 documented as of this encounter
--- OUTSIDE RECORDS SUMMARY | 2024-07-02 08:03 | External Medical Summary ---
Author Name Unknown Address Unknown Organization K01:[facility] [place] [address] [facility] [address] Laboratory Report Ordering Provider Test Date Status TRISH BANEGAS 05/09/2024 10:19:16 Final Observation Date Value Abnormality Reference (Units ) Status Iron 05/09/2024 10:19:16 93 33-151 (ug /dL) Final Iron-binding capacity 05/09/2024 10:19:16 401 250-425 (ug/dL) Final Transferrin Sat % 05/09/2024 10:19:16 23 15 -55 (%) Final Performing Location LAB[facility]ATORY [facility] - [address] [facility] [address]
--- OUTSIDE RECORDS SUMMARY | 2024-07-02 08:03 | External Medical Summary | Summary of Care ---
Author Name Unknown Organization [facility] Address [address] [place] [address] Phone [phone] Care Team Providers Care Cut Roll Machine Offbearer Name Role Phone Sheila Melendez PA-C Primary Care Provide r Reason for Visit * Reason Comments Outpatient Testing Encounter Details Date Type Department Care Team (Late st Contact Info) Description 05/09/2024 10:10 AM EDT Laboratory Laboratory, [place] [address] [place] [phone] [place], Laboratory [address] [place] [address] Supervision of high-risk , unspecified trimester Allergies Active Allergy Reactions Criticality Noted Date Comments Enoxaparin Sodium Rash 09/10/2019 documented as of this encounter (statuses as of 05/09/2024) Medications Medication Sig Dispensed Refills Start Date [...] MG Oral Capsule Take by mouth. Active [place]-3 Fatty Acids 1000 MG Oral Capsule (OMEGA-3) [...] first trimester,S/P bariatric surgery 1000 mcg IM [id number] 08/22/2021 Active documented as of this encounter (statuses as of 05/09/2024) Active Problems Problem Noted Date Diagnosed Date Antepartum anemia 04/14/2024 History of gestational diabetes 11/29/2023 Overview: Early glucola Antepartum multigravida of advanced maternal age 0111/29/2023 H/O section 11/29/2023 Overview: Desires repeat c/s with BTL Iron deficiency anemia secsheldon alonso to inadequate dietary iron intake 09/18/2023 [...] -Vitamin D 800 IU daily -Calcium citrate 0687-6760 mg daily (better absorbed than calcium carbonate) [...] as of this encounter (statuses as of 05/09/2024) Resolved Problems Problem Noted Date Diagnosed Date [...] be handled at the discretion of the vaccinator. 7. For women with a history of [...] as of this encounter (statuses as of 05/09/2024) Immunizations Name Administration Dates Next Due HPV [...] the money to buy more. Never true 01/01/20 24 Within the past 12 months, t he food you bought just didn't last and you didn't have money to get more. Never true 11/26/2023 [place] Depression Scale Answer Date Recorded [place] Depression Scale Total 2 11/29/2023 The thought [...] No 08/26/2019 documented as of this encounter Plan of Treatment Upcoming Encounters Date Type Department Care Team (Late st Contact Info) Description 05/13/2024 8:30 AM EDT Office Visit Gynecology/Obstetrics Robin Jones [address] [address] Mima Membreno CRNP [address] [place] [address] 05/27/2024 8:30 AM EDT Office Visit Gynecology/Obstetrics Robin Jones [address] [place] [address] BackMima clark CRNP [address] [place] [address] 05/27/2024 9:30 AM EDT Nurse Only Nutrition & Weight Management, Robin [facility] [address] [place] [address] [facility] Nurse Gi Nutrition [facility] [address] [place] [address] 06/10/2024 8:45 AM EDT Office Visit Gynecology/Obstetrics Robin Butchers [address] [place] [address] Samina Flores MD [address] [place] [address] [place] [address] 06/17/2024 8:30 AM EDT Office Visit Gynecology/Obstetrics Robin Butchers [address] [place] [address] BackerMima CRNP [address] [place] [address] 06/24/2024 8:30 AM EDT Office Visit Gynecology/Obstetrics Robin Butchers [address] [place] [address] BackerMima CRNP [address] [place] [address] 07/09/2024 10:30 AM EDT Office Visit Gynecology/Obstetrics Robin Jones [address] [place] [address] BackerMima CRNP [address] [place] [address] 09/11/2024 9:00 AM EDT Office Visit Nutrition & Weight Management, [facility] [address] [place] [address] Marina Laura PA-C [address] [place] [address] Pending Results Name Type Priority Associated Diagnoses Date /Time CBC WITH WBC DIFFERENTIAL AND ANEMIA REFLEX WORKUP Lab Routine Supervision of high-risk , unspecified trimester 05/09/2024 10:19 AM EDT ANEMIA CBC Lab Routine Supervision of high-risk , unspecified trimester 05/09/2024 10:19 AM EDT DIFFERENTIAL, AUTOMATED Lab Routine Supervision of high-risk , unspecified trimester 05/09/2024 10:19 AM EDT ANEMIA REFLEX CHEMISTRY HOLD Lab Routine Supervision of high-risk , unspecified trimester 05/09/2024 10:19 AM EDT Health Maintenance Due Date Last Done Comments Hepatitis B (1 of 3 - 19+ 3-dose series) 2006 Depression Monitoring 05/01/2020 05/01/2019 COVID-19 Vaccine (2022- season) 2023 03/04/2021 Pap Smear 06/09/2026 06/09/2023, [...] Diagnoses Diagnosis Supervision of high-risk , unspecified trimester documented in this encounter Advance Directives * Full Code (Latest Code Status on File) Date Activated Date Inactivated Comments 08/26/2019 11:42 AM 08/27/2019 4:15 PM This order reflects the patients wishes and were consensually agreed upon. * Full Code Date Activated Date Inactivated Comments 08/26/2019 6:51 AM 08/26/2019 11:42 AM This order reflects the patients wishes and were consensually agreed upon. Care Teams Cut Roll Machine Offbearer Relationship Specialty Start Date End Date Sheila Melendez PA-C [address] [facility], [place] [address] PCP - General Physician Neonatologist 01/27/15 documented as of this encounter
--- OUTSIDE RECORDS SUMMARY | 2024-07-02 08:03 | External Medical Summary | Summary of Care ---
Author Name Unknown Organization [facility] Address [address] [facility] [place] [address] Phone [phone] Care Team Providers Care Quarantine Inspector Name Role Phone Sheila Melendez PA-C Primary Care Provide r Reason for Visit * Reason Comments Infusion Venofer 01/26 Encounter Details Date Type Department Care Team (Latest Contact Info) Description 05/02/2024 8:30 AM EDT Hem/Onc Treatment Hematology/Oncology Treatment, [address] [phone] Marissa, Chair [address] Hem On[address] [address] Iron deficiency anemia secondary to inadequate dietary iron intake* Allergies Active Allergy Reactions Criticality Noted Date Comments Enoxaparin Sodium Rash 09/10/2019 documented as of this encounter (statuses as of 05/02/2024) Medications Medication Sig Dispensed Refills Start Date [...] MG Oral Capsule Take by mouth. Active [place]-3 Fatty Acids 1000 MG Oral Capsule (OMEGA-3) [...] first trimester,S/P bariatric surgery 1000 mcg IM [id number] 08/22/2021 Active documented as of this encounter (statuses as of 05/02/2024) Active Problems Problem Noted Date Diagnosed Date [...] -Vitamin D 800 IU daily -Calcium citrate 4505-0470 mg daily (better absorbed than calcium carbonate) [...] as of this encounter (statuses as of 05/02/2024) Resolved Problems Problem Noted Date Diagnosed Date [...] be handled at the discretion of the wildlife conservation professor. 7. For women with a history of [...] as of this encounter (statuses as of 05/02/2024) Immunizations Name Administration Dates Next Due HPV [...] money to get more. Never true 11/26/2023 [place] Depression Scale Answer Date Recorded [place] Depression Scale Total 2 11/29/2023 The thought [...] 05/13/2024 8:30 AM EDT Office [facility] [address] [place] [address] Mima Membreno CRNP [address] [place] [address] 05/27/2024 8:30 AM EDT Office [facility] [address] [place] [address] Mima Membreno CRNP [address] [place] [address] 05/27/2024 9:30 AM EDT Nurse Only Nutrition & Weight Management, [facility] [address] [place] [address] [facility] Nurse Gi Nutrition [facility] [address] [place] [address] 06/10/2024 8:45 AM EDT Office Visit Gynecology/Obstetrics [facility] [address] [place] [address] Samina Flores MD [address] [place], [place] [address] [address] 06/17/2024 8:30 AM EDT Office Visit Gynecology/Obstetrics [facility] [address] [place] [address] BackerMima CRNP [address] [place] [address] 06/24/2024 8:30 AM EDT Office Visit Gynecology/Obstetrics [facility] [address] [place] [address] BackerMima CRNP [address] [place] [address] 07/09/2024 10:30 AM EDT Office Visit Gynecology/Obstetrics [facility] [address] [place] [address] BackMima clark CRNP [address] [place] [address] 09/11/2024 9:00 AM EDT Office Visit Nutrition & Weight Management, [facility] [address] [place] [address] Marina Laura PA-C [address] [place] [address] Health Maintenance Due Date Last Done Comments [...] Primary documented in this encounter Administered Medications Active Administered Medications - up to 3 most recent administrations Medication Order MAR Action Action Date Dose Rate Site diphenhydrAMINE (Benadryl) inj 50 mg 50 mg, IV Push, ONCE PRN Other, Hypersensitivity Reaction, Starting on Sun05/02/24 at 0810, Until 05/03/24 at 0809, For 24 hours EPINEPHrine 1 MG/ML inj 0.3 mg 0.3 mg, Intramuscular, ONCE PRN Other, Hypersensitivity Reaction or Anaphylaxis, Starting on Sun05/02/24 at 0810, Until 05/03/24 at 0809, For 24 hours hEParin 100 UNIT/ML Lock Flush inj 500 Units 500 Units (5 mL), IV Lock, PRN Other, IV Flush, Starting on Sun05/02/24 at 0810, Until 05/03/24 at 0809, For 24 hours, Do not flush if lock, PICC, or central line not in place; IV infusing or unable to flush. Hydrocortisone Sod Suc (PF) (Solu-Cortef) inj 100 mg 100 mg, IV Push, ONCE PRN Other, Hypersensitivity Reaction, Starting on Sun05/02/24 at 0810, Until 05/03/24 at 0809, For 24 hours NSS infusion 500 mL, Intravenous, at 50 mL/hr, CONTINUOUS, Starting on Sun05/02/24 at 0915, Until Sun05/02/24 at 1914 Start Infusion 05/02/2024 8:21 AM EDT 500 mL 50 mL/hr oxygen GAS Inhalation, OXYGEN, First dose on Sun05/02/24 at 0845, Until Discontinued, Device/Managed by: Low Flow Device, Goal SPO2 (%): 91-95, Starting Device: Nasal Cannula, Initial Flow Rate (LPM): 2, Lowest Support: Nasal Cannula: Flow 0-6 LPM. Titrate up/down by 1 LPM., Higher Support: Non-Rebreather (NRB) Mask: Minimum of 10 LPM. Titrate to maintain bag inflation., Titration Interval: Q2 minutes and as needed., Notify Provider: For sudden DECREASE in resting SPO2 to less than 85% and when escalating delivery device., Wean patient off Oxygen when the oxygen saturation is greater than or equal to 93% sodium chloride 0.9 % flush central line 10 mL 10 mL, IV Push, PRN Other, IV Flush, Starting on Sun05/02/24 at 0810, Until 05/03/24 at 0809, For 24 hours, Do not flush if lock, PICC, or central line not in place; IV infusing or unable to flush. Inactive Administered Medications - up to 3 most recent administrations Medication Order MAR Action Action Date Dose Rate Site Iron Sucrose (Venofer) 300 mg in NSS 250 mL ivpb 300 mg, IV Piggyback, ONCE, 1 dose, On Sun05/02/24 at 0945, Administer over 90 Minutes Start Infusion 05/02/2024 8:21 AM EDT 300 mg 180 mL/hr documented in this encounter Advance Directives [...] and were consensually agreed upon. Care Teams Quarantine Inspector Relationship Specialty Start Date End Date Sheila Melendez PA-C [facility] [place] [address] PCP - General Physician Shell Plater 01/27/15 documented as of this encounter
--- OUTSIDE RECORDS SUMMARY | 2024-07-02 08:03 | External Medical Summary | Summary of Care ---
Author Name Unknown Organization [facility] Address [address] [facility] [place] [address] Phone [phone] Care Team Providers Care Prototype Deicer Assembler Name Role Phone Sheila Melendez PA-C Primary Care Provide r Encounter Details Date Type Department Care Team (Late st Contact Info) Description 05/03/2024 Orders Only PATIENT PORTAL DO NOT DELETE THIS DEPT USED BY [place] [id number] Allergies Active Allergy Reactions Criticality Noted Date Comments Enoxaparin Sodium Rash 09/10/2019 documented as of this encounter (statuses as of 05/03/2024) Medications Medication Sig Dispensed Refills Start Date [...] MG Oral Capsule Take by mouth. Active [place]-3 Fatty Acids 1000 MG Oral Capsule (OMEGA-3) [...] first trimester,S/P bariatric surgery 1000 mcg IM [id number] 08/22/2021 Active documented as of this encounter (statuses as of 05/03/2024) Active Problems Problem Noted Date Diagnosed Date [...] -Vitamin D 800 IU daily -Calcium citrate 2874-4719 mg daily (better absorbed than calcium carbonate) [...] as of this encounter (statuses as of 05/03/2024) Resolved Problems Problem Noted Date Diagnosed Date [...] be handled at the discretion of the picu nurse. 7. For women with a history of [...] as of this encounter (statuses as of 05/03/2024) Immunizations Name Administration Dates Next Due HPV [...] money to get more. Never true 11/26/2023 [place] Depression Scale Answer Date Recorded [place] Depression Scale Total 2 11/29/2023 The thought [...] Office Visit Gynecology/Obstetrics Robin Butchers [address] [place] [address] Mima Membreno CRNP [address] [place] [address] 05/27/2024 8:30 AM EDT Office Visit Gynecology/Obstetrics Robin Jones [address] [place] [address] Mima Membreno CRNP [address] [place] [address] 05/27/2024 9:30 AM EDT Nurse Only Nutrition & Weight Management, [facility] [address] [place] [address] Robert Nurse Gi Nutrition [facility] [address] [place] [address] 06/10/2024 8:45 AM EDT Office Visit Gynecology/Obstetrics [facility] [address] [place] [address] Samina Flores MD [address] [place] [address] [place] [address] 06/17/2024 8:30 AM EDT Office Visit Gynecology/Obstetrics [facility] [address] [place] [address] BackMima clark CRNP [address] [place] [address] 06/24/2024 8:30 AM EDT Office Visit Gynecology/Obstetrics [facility] [address] [place] [address] Mima Membreno CRNP [address] [place] [address] 07/09/2024 10:30 AM EDT Office Visit Gynecology/Obstetrics [facility] [address] [place] [address] BackMima clark CRNP [address] [place] [address] 09/11/2024 9:00 AM EDT Office Visit Nutrition & Weight Management, [facility] [address] [place] [address] Marina Laura PA-C [address] [place] [address] Health Maintenance Due Date Last Done Comments [...] and were consensually agreed upon. Care Teams Prototype Deicer Assembler Relationship Specialty Start Date End Date Sheila Melendez PA-C [address] [place] [address], [place] [address] PCP - General Physician Bottle Feeder 01/27/15 documented as of this encounter
--- OUTSIDE RECORDS SUMMARY | 2024-07-02 08:03 | External Medical Summary | Summary of Care ---
Author Name Unknown Organization [facility] Address [address] [facility] [place] [address] Phone [phone] Care Team Providers Care Viscera Washer Name Role Phone Sheila Melendez PA-C Primary Care Provide r Reason for Visit * Reason Comments Return Visit Encounter Details Date Type Department Care Team (Late st Contact Info) Description 05/13/2024 8:30 AM EDT Office Visit Gynecology/Obstetric s Robin Jones [address] [place] [address] Mima Membreno CRNP [address] [place] [address] Supervision of high-risk , unspecified trimester*; affected by previous bariatric surgery, currently in third trimester; Depression complicating , antepartum; History of gestational diabetes; Antepartum multigravida of advanced maternal age; H/O section; Uterine size-date discrepancy in third trimester Allergies Active Allergy Reactions Criticality Noted Date Comments Enoxaparin Sodium Rash 09/10/2019 documented as of this encounter (statuses as of 05/13/2024) Medications Medication Sig Dispensed Refills Start Date [...] MG Oral Capsule Take by mouth. Active [place]-3 Fatty Acids 1000 MG Oral Capsule (OMEGA-3) [...] first trimester,S/P bariatric surgery 1000 mcg IM [id number] 08/22/2021 Active documented as of this encounter (statuses as of 05/13/2024) Active Problems Problem Noted Date Diagnosed Date [...] -Vitamin D 800 IU daily -Calcium citrate 1064-3088 mg daily (better absorbed than calcium carbonate) [...] as of this encounter (statuses as of 05/13/2024) Resolved Problems Problem Noted Date Diagnosed Date [...] be handled at the discretion of the preprint analyst. 7. For women with a history of [...] as of this encounter (statuses as of 05/13/2024) Immunizations Name Administration Dates Next Due HPV [...] money to get more. Never true 11/26/2023 [place] Depression Scale Answer Date Recorded [place] Depression Scale Total 2 11/29/2023 The thought [...] Sign Reading Time Taken Comments Blood Pressure 106/62 05/13/2024 8:25 AM EDT Pulse - - Temperature - - Respiratory Rate - - Oxygen Saturation - - Inhaled Oxygen Concentration - - Weight 86.2 kg (190 lb) 05/13/2024 8:25 AM EDT Height - - Body Mass Index 32.61 05/01/2024 12:59 PM EDT documented in this encounter Functional Status [...] Progress Notes * Mima Membreno CRNP - 05/13/2024 8:34 AM EDT 32w1d No regular ctx, leaking, bleeding. Baby moving well. Discussed HR, physiologic changes in . No chest pain, SOB, palpitations. Admits to not drinking enough, encouraged to push fluids. Seek care if HR is persistently >120, or with symptoms. Elevated ferritin. She is receiving iron infusions, discussed this is likely the cause. Reviewed movement patterns, labor precautions, and when to call. S>D, will schedule growth u/s. 2 week return DERRICK Bradley * Lola Winters MED ASSIST - 05/13/2024 8:25 AM EDT 32w1d Denies vaginal bleeding/rom + movements + nausea when triggered by smell High heart rate recently Discuss Iron labs, high ferritin documented in this encounter Plan of Treatment Upcoming Encounters Date Type Department Care Team (Late st Contact Info) Description 05/27/2024 9:30 AM EDT Nurse Only Nutrition & Weight Management, [facility] [address] [place] [address] Robert Nurse Gi Nutrition [facility] [address] [place] [address] 05/27/2024 1:00 PM EDT Imaging Radiology [facility] [address] [place] [address] 05/27/2024 1:45 PM EDT Office Visit Gynecology/Obstetrics [facility] [address] [address] [place] [address] Cherry Landers CRNP [address] [place] [address] 06/10/2024 8:45 AM EDT Office Visit Gynecology/Obstetrics [facility] [address] [place], [place] [address] Samina Flores MD [address] [place] [address] [place] [address] 06/17/2024 8:30 AM EDT Office Visit Gynecology/Obstetrics [facility] [address] [place] [address] Mima Membreno CRNP [address] [place] [address] 06/24/2024 8:30 AM EDT Office Visit Gynecology/Obstetrics [facility] [address] [place] [address] Mima Membreno CRNP [address] [place] [address] 07/09/2024 10:30 AM EDT Office Visit Gynecology/Obstetrics [facility] [address] [place] [address] BackMima clark CRNP [address] [place] [address] 09/11/2024 9:00 AM EDT Office Visit Nutrition & Weight Management, [facility] [address] [place] [address] [place] Laura PA-C [address] [place] [address] Scheduled Orders Name Type Priority Associated Diagnoses Orde r Schedule US PREG FOLLOW-UP EACH FETUS Medical Imaging Routine Supervision of high-risk , unspecified trimester Uterine size-date discrepancy in third trimester Expected: 05/27/2024 (Approximate), Expires: 06/12/2025 Health Maintenance Due Date Last Done Comments Hepatitis B (1 of 3 - 19+ 3-dose series) 2006 Depression Monitoring 05/01/2020 05/01/2019 COVID-19 Vaccine (2 - 2022- season) 2023 [...] maternal age H/O section Other postprocedural status Uterine size-date discrepancy in third trimester Uterine size date discrepancy, antepartum condition or complication documented in this encounter Advance Directives * Full Code (Latest Code Status on File) Date Activated Date Inactivated Comments 08/26/2019 11:42 AM 08/27/2019 4:15 PM This order reflects the patients wishes and were consensually agreed upon. * Full Code Date Activated Date Inactivated Comments 08/26/2019 6:51 AM 08/26/2019 11:42 AM This order reflects the patients wishes and were consensually agreed upon. Care Teams Viscera Washer Relationship Specialty Start Date End Date Sheila Melendez PA-C [address] [facility] [address] PCP - General Physician Salvage Mend Worker 01/27/15 documented as of this encounter
--- OUTSIDE RECORDS SUMMARY | 2024-07-02 08:03 | External Medical Summary | Summary of Care ---
Author Name Unknown Organization [facility] Address [address] [facility] [place] [address] Phone [phone] Care Team Providers Care Admissions Counselor Name Role Phone Sheila Melendez PA-C Primary Care Provide r Reason for Visit * Reason Comments Return Visit Encounter Details Date Type Department Care Team (Late st Contact Info) Description 05/27/2024 1:45 PM EDT Office Visit Gynecology/Obstetric s Robin Jones [address] [place] [address] Cherry Landers CRNP [address] [place] [address] High-risk , third trimester*; Previous bariatric surgery affecting , antepartum; Depression complicating , antepartum; History of gestational diabetes; Antepartum multigravida of advanced maternal age; H/O section Allergies Active Allergy Reactions Criticality Noted Date Comments Enoxaparin Sodium Rash 09/10/2019 documented as of this encounter (statuses as of 05/27/2024) Medications Medication Sig Dispensed Refills Start Date [...] MG Oral Capsule Take by mouth. Active [place]-3 Fatty Acids 1000 MG Oral Capsule (OMEGA-3) [...] first trimester,S/P bariatric surgery 1000 mcg IM [id number] 08/22/2021 Active documented as of this encounter (statuses as of 05/27/2024) Active Problems Problem Noted Date Diagnosed Date Antepartum anemia 04/14/2024 History of gestational diabetes 11/29/2023 Overview: Early glucola Antepartum multigravida of advanced maternal age 0111/29/2023 H/O section 11/29/2023 Overview: Desires repeat c/s with BTL Iron deficiency anemia rossana kaufmany to inadequate dietary iron intake 09/18/2023 COVID-19 [...] -Vitamin D 800 IU daily -Calcium citrate 7617-3288 mg daily (better absorbed than calcium carbonate) [...] as of this encounter (statuses as of 05/27/2024) Resolved Problems Problem Noted Date Diagnosed Date [...] be handled at the discretion of the optometric assistant. 7. For women with a history of [...] as of this encounter (statuses as of 05/27/2024) Immunizations Name Administration Dates Next Due HPV [...] money to get more. Never true 11/26/2023 Gray Depression Scale Answer Date Recorded Gray Depression Scale Total 2 11/29/2023 The thought [...] Sign Reading Time Taken Comments Blood Pressure 98/62 05/27/2024 12:56 PM EDT Pulse - - Temperature - - Respiratory Rate - - Oxygen Saturation - - Inhaled Oxygen Concentration - - Weight 87.7 kg (193 lb 4.8 oz) 05/27/2024 12:56 PM EDT Height 162.6 cm (5' 4") 05/27/2024 12:56 PM EDT Body Mass Index 33.18 05/27/2024 12:56 PM EDT documented in this encounter Functional [...] as of this encounter Progress Notes * Cherry Landers CRNP - 05/27/2024 1:41 PM EDT 34w1d Feeling well overall. Having some round ligament pain, some BH contractions. Growth u/s today, 48 percentile. Planning repeat c/s with BTL, is scheduled. DERRICK Huerta documented in this encounter Nursing Notes * Julia Sandoval LPN - 05/27/2024 1:21 PM EDT 34w1d Had growth US today- 48%, JERICA 17.2, HR 133. Given labor instructions. documented in this encounter Plan of Treatment Upcoming Encounters Date Type Department Care Team (Late st Contact Info) Description 05/27/2024 2:15 PM EDT Nurse Only [facility] [address] [place] [address] [facility] Nurse Gi Nutrition Kyra [address] [place] [address] Nurse Documentation (B12 shot) 06/10/2024 8:45 AM EDT Office Visit Gynecology/Obstetri Robin Jones [address] [place] [address] Samina Flores MD [address] [place] [address] [place] [address] 06/17/2024 8:30 AM EDT Office Visit Gynecology/Obstetri Robin Jones [address] [place] [address] Mima Membreno CRNP [address] [place] [address] 06/24/2024 8:30 AM EDT Office Visit Gynecology/Obstetri Robin Jones [address] [place] [address] Mima Membreno CRNP [address] [place] [address] 07/09/2024 10:30 AM EDT Office Visit Gynecology/Obstetri Robin Jones [address] [place] [address] Mima Membreno CRNP [address] [place] [address] 09/11/2024 9:00 AM EDT Office Visit Nutrition & Weight Management, [facility] [address] [place] [address] Marina Laura PA-C [address] [place] [address] Health Maintenance Due Date Last Done Comments [...] Completed 03/14/2010, 03/14/2010, 11/09/2009, Additional history exists MENINGOCOCCAL (MENACTRA/MENVEO) [...] as of this encounter Visit Diagnoses Diagnosis High-risk , third trimester- Primary Previous bariatric surgery affecting , antepartum Depression complicating , antepartum Mental disorders of [...] and were consensually agreed upon. Care Teams Admissions Counselor Relationship Specialty Start Date End Date Sheila Melendez PA-C [address] [place] [address], [place] [address] PCP - General Physician Farm General Manager 01/27/15 documented as of this encounter
--- OUTSIDE RECORDS SUMMARY | 2024-07-02 08:03 | External Medical Summary | Summary of Care ---
Author Name Unknown Organization [facility] Address [address] [facility] [place] [address] Phone [phone] Care Team Providers Care Monogram Maker Name Role Phone Sheila Melendez PA-C Primary Care Provide r Reason for Visit * Reason Comments Nurse Documentation B12 shot Encounter Details Date Type Department Care Team (Late st Contact Info) Description 05/27/2024 2:15 PM EDT Nurse Only Nutrition & Weight Management, [facility] [place] [address] [facility] [address] Nurse Documentation (B12 shot) Allergies Active Allergy Reactions Criticality Noted Date [...] MG Oral Capsule Take by mouth. Active [place]-3 Fatty Acids 1000 MG Oral Capsule (OMEGA-3) [...] first trimester,S/P bariatric surgery 1000 mcg IM [id number] 08/22/2021 Active documented as of this encounter [...] -Vitamin D 800 IU daily -Calcium citrate 3717-6373 mg daily (better absorbed than calcium carbonate) [...] be handled at the discretion of the detective automobile section. 7. For women with a history of [...] money to get more. Never true 11/26/2023 [place] Depression Scale Answer Date Recorded [place] Depression Scale Total 2 11/29/2023 The thought [...] No 11/26/2023 Does the household have a [facility] source of income? (Household - for ages [...] Progress Notes * Chepe Hill LPN - 05/27/2024 1:45 PM EDT Pre-Administration Time Out Procedure Performed: Yes [...] with Parent(s)/Patient: Yes documented in this encounter Nursing Notes * Chepe Hill LPN - 05/27/2024 1:50 PM EDT B12 shot documented in this encounter Plan of Treatment Upcoming Encounters Date Type Department Care Team (Late st Contact Info) Description 06/10/2024 8:45 AM EDT Office Visit Gynecology/Obstetrics [address] [place] [address] Samina Flores MD [address] [place] [address] [place] [address] 06/17/2024 8:30 AM EDT Office Visit Gynecology/Obstetrics [facility] [address] [place] [address] BackMima clark CRNP [address] [place] [address] 06/24/2024 8:30 AM EDT Office Visit Gynecology/Obstetrics [facility] [address] [place] [address] Mima Membreno CRNP [address] [place] [address] 07/09/2024 10:30 AM EDT Office Visit Gynecology/Obstetrics [facility] [address] [facility] [place] [address] Mima eMmbreno CRNP [address] [place] [address] 09/11/2024 9:00 AM EDT Office Visit Nutrition & Weight Management, [facility] [address] [place] [address] [place] Laura PA-C [address] [place] [address] Health Maintenance Due Date Last Done Comments [...] Not on filedocumented as of this encounter Administered Medications Active Administered Medications - up to 3 most recent administrations Medication Order MAR Action Action Date Dose Rate Site vitamin b-12 (Cyanocobalamin) inj 1,000 mcg 1,000 mcg, Intramuscular, [id number], First dose on 08/22/21 at 1445, Until Discontinued Given 05/27/2024 1:51 PM EDT 1,000 mcg Deltoid Left Upper Given 05/01/2024 1:29 PM EDT 1,000 mcg De ltoid Left Upper Given 11/29/2023 8:47 AM EST 1,000 mcg D eltoid Left Upper documented in this encounter Advance [...] and were consensually agreed upon. Care Teams Monogram Maker Relationship Specialty Start Date End Date Sheila Melendez PA-C [address] [place] [address] PCP - General Physician Buggy Man 01/27/15 documented as of this encounter
--- OUTSIDE RECORDS SUMMARY | 2024-07-02 08:04 | External Medical Summary ---
Author Name Unknown Address Unknown Organization [id number]:LABORATORY [facility] [place] - [address] [place] [address] Laboratory Report Ordering Provider Test Date Status JOSEPH ARAUZ 04/14/2024 09:34:23 Final Observation Date Value Abnormality Reference (Units ) Status Treponema pallidum Ab [Presence] in Serum by Immunoassay 04/14/2024 09:34:23 Nonreactive Nonreactive Final No serologic evidence of syp hilis. No additional testing clinicially indicated at this time. Consider repeat testing in 2-4 weeks if acute or primary syphilis is suspected. Performing Location LABORATORY [facility] [place] - [address] [place] [address]
--- OUTSIDE RECORDS SUMMARY | 2024-07-02 08:04 | External Medical Summary ---
Author Name Unknown Address Unknown Organization [id number]:LABORATORY [facility] [place] - [facility] [place] [address] Laboratory Report Ordering Provider Test Date Status JOSEPH ARAUZ 04/14/2024 09:34:23 Final Observation Date Value Abnormality Reference (Units ) Status Retic, % (auto) 04/14/2024 09:34:23 2.59 Above high normal 0.80-1.90 (%) Final Reticulocytes, Absolute 04/14/2024 09:34:23 97.9 31.3-100.1 (K/uL) Final Reticulocyte fraction, immature 04/14/2024 09:34:23 13.8 2.5-20.6 (%) Final Reticulocyte HGB 04/14/2024 09:34:23 34.6 29.7-37.4 (pg) Final Performing Location LABORATORY [facility] [place] - [address] [place] [address]
--- OUTSIDE RECORDS SUMMARY | 2024-07-02 08:04 | External Medical Summary | Summary of Care ---
Author Name Unknown Organization [facility] Address [address] [facility] [place] [address] Phone [phone] Care Team Providers Care Tunneling Machine Operator Name Role Phone Sheila Melendez PA-C Primary Care Provide r Reason for Visit * Reason Comments Infusion Venofer 2/3 Encounter Details Date Type Department Care Team (Latest Contact Info) Description 04/25/2024 8:30 AM EDT Hem/Onc Treatment Hematology/Oncology Treatment, [address] [phone] Marissa, Chair 7 Hem On[address] [address] Iron deficiency anemia secondary to inadequate dietary iron intake* Allergies Active Allergy Reactions Criticality Noted Date Comments Enoxaparin Sodium Rash 09/10/2019 documented as of this encounter (statuses as of 04/25/2024) Medications Medication Sig Dispensed Refills Start Date [...] MG Oral Capsule Take by mouth. Active [place]-3 Fatty Acids 1000 MG Oral Capsule (OMEGA-3) [...] first trimester,S/P bariatric surgery 1000 mcg IM [id number] 08/22/2021 Active documented as of this encounter (statuses as of 04/25/2024) Active Problems Problem Noted Date Diagnosed Date [...] -Vitamin D 800 IU daily -Calcium citrate 7405-0277 mg daily (better absorbed than calcium carbonate) [...] as of this encounter (statuses as of 04/25/2024) Resolved Problems Problem Noted Date Diagnosed Date [...] be handled at the discretion of the client resource specialist. 7. For women with a history [...] as of this encounter (statuses as of 04/25/2024) Immunizations Name Administration Dates Next Due HPV [...] money to get more. Never true 11/26/2023 [place] Depression Scale Answer Date Recorded [place] Depression Scale Total 2 11/29/2023 The thought [...] Care Team (Late st Contact Info) Description 05/01/2024 1:00 PM EDT Office Visit Gynecology/Obstetrics [facility] [address] [place] [address] Bogdan Olivares MD [address] [place] [address] 05/01/2024 1:30 PM EDT Nurse Only Nutrition & Weight Management, [facility] [address] [place] [address] Nurse Marlys Jones Nutrition [facility] [address] [facility] [place] [address] 05/02/2024 8:30 AM EDT Hem/Onc Treatment Hematology/Oncology Treatment, [address] [place] [phone] Marissa Chair 4 Hem Onc [address], [place] [address] 05/13/2024 8:30 AM EDT Office Visit Gynecology/Obstetrics [facility] [address] [place] [address] Mima Membreno CRNP [address] [place] [address] 05/27/2024 8:30 AM EDT Office Visit Gynecology/Obstetrics [facility] [address] [place] [address] BackerMima CRNP [address] [place] [address] 06/10/2024 8:45 AM EDT Office Visit Gynecology/Obstetrics [facility] [address] [place] [address] Samina Flores MD [address] [place] [address] [place] [address] 06/17/2024 8:30 AM EDT Office Visit Gynecology/Obstetrics [facility] [address] [place] [address] BackerMima CRNP [address] [place] [address] 06/24/2024 8:30 AM EDT Office Visit Gynecology/Obstetrics [facility] [address] [place] [address] BackerMima CRNP [address] [place] [address] 07/09/2024 10:30 AM EDT Office Visit Gynecology/Obstetrics [facility] [address] [place] [address] BackerMima CRNP [address] [place] [address] 09/11/2024 9:00 AM EDT Office Visit Nutrition & Weight Management, [facility] [address] [place] [address] Marina Laura PA-C [address] [place] [address] Health Maintenance Due Date Last Done Comments [...] ONCE PRN Other, Hypersensitivity Reaction, Starting on Sun04/25/24 at 0833, Until 04/26/24 at 0832, For 24 hours EPINEPHrine 1 MG/ML inj 0.3 mg 0.3 mg, Intramuscular, ONCE PRN Other, Hypersensitivity Reaction or Anaphylaxis, Starting on Sun04/25/24 at 0833, Until 04/26/24 at 0832, For 24 hours hEParin 100 UNIT/ML Lock Flush inj 500 Units 500 Units (5 mL), IV Lock, PRN Other, IV Flush, Starting on Sun04/25/24 at 0833, Until 04/26/24 at 0832, For 24 hours, Do not flush if lock, PICC, or central line not in place; IV infusing or unable to flush. Hydrocortisone Sod Suc (PF) (Solu-Cortef) inj 100 mg 100 mg, IV Push, ONCE PRN Other, Hypersensitivity Reaction, Starting on Sun04/25/24 at 0833, Until 04/26/24 at 0832, For 24 hours NSS infusion 500 mL, Intravenous, at 50 mL/hr, CONTINUOUS, Starting on Sun04/25/24 at 0945, Until Sun04/25/24 at 1944 Start Infusion 04/25/2024 8:34 AM EDT 500 mL 50 mL/hr oxygen GAS Inhalation, OXYGEN, First dose on Sun04/25/24 at 0915, Until Discontinued, Device/Managed by: Low Flow Device, [...] Push, PRN Other, IV Flush, Starting on Sun04/25/24 at 0833, Until 04/26/24 at 0832, For 24 hours, Do not flush if [...] 8:35 AM EDT 300 mg 193.33 mL/hr documented in this encounter Advance Directives [...] and were consensually agreed upon. Care Teams Tunneling Machine Operator Relationship Specialty Start Date End Date Sheila Melendez PA-C [address] [place] [address], [place] [address] PCP - General Physician Market Research Executive 01/27/15 documented as of this encounter
--- OUTSIDE RECORDS SUMMARY | 2024-07-02 08:04 | External Medical Summary ---
Author Name Unknown Address Unknown Organization K01:[place] [place] [address] [place] [address] Laboratory Report Ordering Provider Test Date Status JOSEPH ARAUZ 04/14/2024 09:34:23 Final Observation Date Value Abnormality Reference (Units ) Status TSH 04/14/2024 09:34:23 1.86 0.27-4.20 (uIU/mL) Final Performing Location LABORATORY [facility] - [address] [place] [address]
--- OUTSIDE RECORDS SUMMARY | 2024-07-02 08:04 | External Medical Summary ---
Author Name Unknown Address Unknown Organization K0G:LABORATORY [facility] [place] [address] - [address] [place] [address] Laboratory Report Ordering Provider Test Date Status JOSEPH ARAUZ 04/14/2024 09:34:23 Final Observation Date Value Abnormality Reference (Units ) Status Glucose [Moles/volume] in Serum or Plasma --1 hour post 50 g glucose PO 04/14/2024 09:34:23 113 70-129 (mg/dL) Final Performing Location LABORATORY [facility] [place] [address] - [address] [place] [address]
--- OUTSIDE RECORDS SUMMARY | 2024-07-02 08:04 | External Medical Summary | Summary of Care ---
Author Name Unknown Organization [facility] Address [address] [facility] [place] [address] Phone [phone] Care Team Providers Care Retoucher Photoengraving Name Role Phone Sheila Melendez PA-C Primary Care Provide r Encounter Details Date Type Department Care Team (Late st Contact Info) Description 04/09/2024 Orders Only Nutrition & Weight Management, [facility] [address] [place] [address] [place] Laura PA-C [address] [place] [address] Allergies Active Allergy Reactions Criticality Noted Date Comments Enoxaparin Sodium Rash 09/10/2019 documented as of this encounter (statuses as of 04/09/2024) Medications Medication Sig Dispensed Refills Start Date End Date Status Calcium+D3 600-800 MG-UNIT Oral Tablet Take by mouth 1 Tablet 3 times a day . All chews 0 Active Cholecalciferol (VITAMIN D) 25 MCG (1000 UT) TABS Take by mouth. 0 Active Childrens Chewable Vitamins Oral Tablet Chewable Take 1 Tablet by mouth in the morning and 1 Tablet before bedtime. 0 Active Folic Acid 5 MG Oral Capsule Take by mouth. 0 Active [place]-3 Fatty Acids 1000 MG Oral Capsule (OMEGA-3) Take 1 Capsule by mouth in the morning. 0 Active Clindamycin Phosphate 1 % External Lotion APPLY 1 APPLICATION TOPICALLY TWICE DAILY TO RASH ON FACE AND PIMPLY AREAS NEEDED 0 02/28/2024 Active Iron Sucrose 20 MG/ML Intravenous Solution (Venofer)Indications :Intestinal postoperative nonabsorption,Pregna ncy affected by previous bariatric surgery, currently in second trimester,Status post gastric bypass for obesity,Iron deficiency anemia secondary to inadequate dietary iron intake Administer 300 mg intravenously once a week. 0 04/08/2024 Active Hospital, Clinic, or Other Facility Administered Medication Ordered Dose Route Frequency Start Date End Date Status vitamin b-12 (Cyanocobalamin) inj 1,000 mcgIndications:Encounter for supervision of normal first in first trimester,S/P bariatric surgery 1000 mcg IM [id number] 08/22/2021 Active documented as of this encounter (statuses as of 04/09/2024) Active Problems Problem Noted Date Diagnosed Date History of gestational diabetes 11/29/2023 Overview: Early [...] -Vitamin D 800 IU daily -Calcium citrate 5601-9020 mg daily (better absorbed than calcium carbonate) [...] as of this encounter (statuses as of 04/09/2024) Resolved Problems Problem Noted Date Diagnosed Date [...] be handled at the discretion of the corset fitter. 7. For women with a history of [...] as of this encounter (statuses as of 04/09/2024) Immunizations Name Administration Dates Next Due HPV Vaccine, 4-Valent 03/14/2010,11/09/2009,08/26 Seasonal Influenza, PF, 6 M & above, IM , (FluLaval or Fluzone) 09/21/2021 TDAP (age 10 and older)(Boostrix) 01/12/2022 TDAP (age 11 and older)(Adacel) 10/22/2009 10/22/2019 documented as of this encounter [...] money to get more. Never true 11/26/2023 [place] Depression Scale Answer Date Recorded [place] Depression Scale Total 2 11/29/2023 The thought [...] Care Team (Late st Contact Info) Description 04/14/2024 9:00 AM EDT [facility] [address] [place] [phone] Lucero Jones [address] [place] [address] 04/14/2024 9:15 AM EDT Office Visit Gynecology/Obstetrics Robin Jones [address] [place] [address] Lavonne Babin PA-C [address] [place] [address] 04/29/2024 8:30 AM EDT [facility] [address] [place] [address] BackerMima CRNP [address] [place], [place] [address] 04/29/2024 9:00 AM EDT Nurse Only Nutrition & Weight Management, [facility] [address] [place], [place] [address] [facility] Nurse Gi Nutrition [facility] [address] [place] [address] 05/13/2024 8:30 AM EDT Office Visit Gynecology/Obstetrics [facility] [address] [place] [address] BackerMima CRNP [address] [place] [address] 05/27/2024 8:30 AM EDT Office Visit Gynecology/Obstetrics [facility] [address] [place], [place] [address] BackMima clark CRNP [address] [place], [place] [address] 06/10/2024 8:45 AM EDT Office Visit Gynecology/Obstetrics [facility] [address] [place] [address] Samina Flores MD [address] [place] [address] [place] [address] 06/17/2024 8:30 AM EDT Office Visit Gynecology/Obstetrics [facility] [address] [place] [address] Mima Membreno CRNP [address] [place] [address] 06/24/2024 8:30 AM EDT Office Visit Gynecology/Obstetrics [facility] [address] [place] [address] Mima Membreno CRNP [address] [place] [address] 09/11/2024 9:00 AM EDT Office Visit Nutrition & Weight Management, [facility] [address] [place] [address] [place] Laura PA-C [address] [place] [address] Health Maintenance Due Date Last Done Comments Hepatitis B (1 of 3 - 19+ 3-dose series) 2006 COVID-19 Vaccine (2 - 2022- season) 2023 03/04/2021 Pap Smear 06/09/2026 06/09/2023, 12/28, 01/21/2020, Additional history exists Diabetes Screening 04/03/2027 04/03/2024, 0 03/31/2024, 09/10/2023, Additional history exists Cervical Cancer Screening 06/09/2028 HPV/Co-Test 06/09/2028 06/09/2023 DTaP,Tdap,and Td Vaccines (4 - Td or Tdap) 01/12/2032 01/12/2022, 12/25/2011, 10/22/2009 GARDASIL-HPV IMMUNIZATION SERIES Completed 03/14/2010, 03/14/2010, 11/09/2009, [...] filedocumented as of this encounter Advance Directives Latest Code Status on File Code Status Date Activated Date Inactivated Comments Full Code 08/26/2019 11:42 AM 08/27/2019 4:15 PM This order reflects the patients wishes and were consensually agreed upon. Code Status History Code Status Date Activated Date Inactivated Comments Full Code 08/26/2019 6:51 AM 08/26/2019 11:42 AM This order reflects the patients wishes and were consensually agreed upon. Care Teams Retoucher Photoengraving Relationship Specialty Start Date End Date Sheila Melendez PA-C [address] [place] [address], [place] [address] PCP - General Physician Fish Culturist 01/27/15 documented as of this encounter
--- OUTSIDE RECORDS SUMMARY | 2024-07-02 08:04 | External Medical Summary | Summary of Care ---
Author Name Unknown Organization [facility] Address [address] [facility] [place] [address] Phone [phone] Care Team Providers Care Thermostat Repairer Name Role Phone Sheila Melendez PA-C Primary Care Provide r Reason for Visit * Reason Comments IV Therapy Venofer 11/28 Encounter Details Date Type Department Care Team (Latest Contact Info) Description 04/18/2024 8:30 AM EDT Hem/Onc Treatment Hematology/Oncology Treatment, [address] [phone] Marissa, Chair 7 Hem Onc [address] [address] Iron deficiency anemia secondary to inadequate dietary iron intake* Allergies Active Allergy Reactions Criticality Noted Date Comments Enoxaparin Sodium Rash 09/10/2019 documented as of this encounter (statuses as of 04/18/2024) Medications Medication Sig Dispensed Refills Start Date [...] MG Oral Capsule Take by mouth. Active [place]-3 Fatty Acids 1000 MG Oral Capsule (OMEGA-3) [...] first trimester,S/P bariatric surgery 1000 mcg IM [id number] 08/22/2021 Active documented as of this encounter (statuses as of 04/18/2024) Active Problems Problem Noted Date Diagnosed Date [...] -Vitamin D 800 IU daily -Calcium citrate 9583-0720 mg daily (better absorbed than calcium carbonate) [...] as of this encounter (statuses as of 04/18/2024) Resolved Problems Problem Noted Date Diagnosed Date [...] be handled at the discretion of the research associate. 7. For women with a history of [...] as of this encounter (statuses as of 04/18/2024) Immunizations Name Administration Dates Next Due HPV Vaccine, 4-Valent 03/14/2010,11/09/2009,08/26 Seasonal Influenza, PF, 6 M & above, IM , (FluLaval or Fluzone) 09/21/2021 TDAP (age 10 and older)(Boostrix) 04/14/2024, TDAP (age 11 and older)(Adacel) 10/22/2009 10/22/2019 [...] money to get more. Never true 11/26/2023 [place] Depression Scale Answer Date Recorded [place] Depression Scale Total 2 11/29/2023 The thought [...] Patient discharged in stable condition. * Aracelis Carlin LPN - 04/18/2024 8:40 AM EDT Patient arrived Chair 10 for IV therapy Venofer 11/28. Vital signs are stable. IVP established; line flushed with ease; IV fluids connected and infusing. Call lowe within reach. documented in this encounter Plan of Treatment Upcoming Encounters Date Type Department Care Team (Late st Contact Info) Description 04/25/2024 8:30 AM EDT Hem/Onc Treatment Hematology/Oncology Treatment[address], [place] [phone] Park, Chair 7 Hem [address]c [address] [address] 05/01/2024 1:00 PM EDT Office Visit Gynecology/Obstetrics [facility] 132 [facility] Marvel [facility] [place] [address] Bogdan Olivares MD 132 [facility] [place] [address] 05/01/2024 1:30 PM EDT Nurse Only Nutrition & Weight Management, [facility] [address] [place] [address] Nurse Marlys Jones Nutrition Kyra [address] [place] [address] 05/02/2024 8:30 AM EDT Hem/Onc Treatment Hematology/Oncology Treatment[address] [place] [address] Marissa, Chair 4 Hem Onc [address] [place] [address] 05/13/2024 8:30 AM EDT Office Visit Gynecology/Obstetrics [facility] [address] [place] [address] Mima Membreno CRNP [address] [place] [address] 05/27/2024 8:30 AM EDT Office Visit Gynecology/Obstetrics [facility] [address] [place] [address] Mima Membreno CRNP [address] [place] [address] 06/10/2024 8:45 AM EDT Office Visit Gynecology/Obstetrics [facility] [address] [place] [address] Samina Flores MD [address] [place] [address] [place] [address] 06/17/2024 8:30 AM EDT Office Visit Gynecology/Obstetrics [facility] [address] [place] [address] Mima Membreno CRNP [address] [place] [address] 06/24/2024 8:30 AM EDT Office Visit Gynecology/Obstetrics [facility] [address] [place] [address] Mima Membreno CRNP [address] [place] [address] 07/09/2024 10:30 AM EDT Office Visit Gynecology/Obstetrics [facility] [address] [place] [address] Mima Membreno CRNP [address] [place] [address] 09/11/2024 9:00 AM EDT Office Visit Nutrition & Weight Management, [facility] [address] [place] [address] [place] Laura PA-C [address] [place] [address] Health Maintenance Due Date Last Done Comments [...] ONCE PRN Other, Hypersensitivity Reaction, Starting on Sun04/18/24 at 0834, Until 04/19/24 at 0833, For 24 hours EPINEPHrine 1 MG/ML inj 0.3 mg 0.3 mg, Intramuscular, ONCE PRN Other, Hypersensitivity Reaction or Anaphylaxis, Starting on Sun04/18/24 at 0834, Until 04/19/24 at 0833, For 24 hours hEParin 100 UNIT/ML Lock Flush inj 500 Units 500 Units (5 mL), IV Lock, PRN Other, IV Flush, Starting on Sun04/18/24 at 0834, Until 04/19/24 at 0833, For 24 hours, Do not flush if lock, PICC, or central line not in place; IV infusing or unable to flush. Hydrocortisone Sod Suc (PF) (Solu-Cortef) inj 100 mg 100 mg, IV Push, ONCE PRN Other, Hypersensitivity Reaction, Starting on Sun04/18/24 at 0834, Until 04/19/24 at 0833, For 24 hours NSS infusion 500 mL, Intravenous, at 50 mL/hr, CONTINUOUS, Starting on Sun04/18/24 at 0945, Until Sun04/18/24 at 1944 Start Infusion 04/18/2024 8:34 AM EDT 500 mL 50 mL/hr oxygen GAS Inhalation, OXYGEN, First dose on Sun04/18/24 at 0915, Until Discontinued, Device/Managed by: Low [...] Push, PRN Other, IV Flush, Starting on Sun04/18/24 at 0834, Until 04/19/24 at 0833, For 24 hours, Do not flush if [...] 8:34 AM EDT 300 mg 193.33 mL/hr documented [...] and were consensually agreed upon. Care Teams Thermostat Repairer Relationship Specialty Start Date End Date Sheila Melendez PA-C [address] [place] [address], [place] [address] PCP - General Physician Jail Guard 01/27/15 documented as of this encounter
--- OUTSIDE RECORDS SUMMARY | 2024-07-02 08:04 | External Medical Summary ---
Author Name Unknown Address Unknown Organization K01:LABORATORY [facility] - [facility] [address] [place] [address] Laboratory Report Ordering Provider Test Date Status JOSEPH ARAUZ 04/14/2024 09:34:23 Final Observation Date Value Abnormality Reference (Units ) Status WBC, Total 04/14/2024 09:34:23 7.91 4.00-10.8 0 (K/uL) Final RBC 04/14/2024 09:34:23 3.81 3.85-5.15 (M/uL) Final Hemoglobin 04/14/2024 09:34:23 11.6 Below low normal 12 .0-15.3 (g/dL) Final Anemia reflex testing trigge rs on a HGB < 12.0 for Females and HGB < 13.0 for Males in accordance with the WHO Anemia Guidelines
Anemia reflex testing triggers on a HGB < 12.0 for Females and HGB < 13.0 for Males in accordance with the WHO Anemia Guidelines HCT 04/14/2024 09:34:23 34.4 Below low normal 36. 0-45.2 (%) Final MCV 04/14/2024 09:34:23 90.3 81.5-97.5 (fL) Final MCH 04/14/2024 09:34:23 30.4 27.0-34.0 (pg) Final MCHC 04/14/2024 09:34:23 33.7 32.0-36.0 (g/dL) Final RDW 04/14/2024 09:34:23 12.6 11.5-15.5 (%) Final Platelets 04/14/2024 09:34:23 234 140-400 (K /uL) Final MPV 04/14/2024 09:34:23 9.4 6.6-11.1 ( fL) Final Nucleated erythrocytes/100 leukocytes [Ratio] in Blood by Automated count 04/14/2024 09:34:23 0 <=0 (/100 WBCs) Final Performing Location LABORATORY [facility] - [address] [facility] [address]
--- OUTSIDE RECORDS SUMMARY | 2024-07-02 08:04 | External Medical Summary | Summary of Care ---
Author Name Unknown Organization [facility] Address [address] [facility] [place] [address] Phone [phone] Care Team Providers Care Mobile Phone Salesperson Name Role Phone Sheila Melendez PA-C Primary Care Provide r Reason for Visit * Reason Onset Date Comments Test Results 04/14/2024 Encounter Details Date Type Department Care Team (Late st Contact Info) Description 04/14/[address] [facility] Gynecology and Obstetrics [address] [place] [address] Barbara Mckeon CNM [address] [place] [address] Test Results Allergies Active Allergy Reactions Criticality Noted Date Comments Enoxaparin Sodium Rash 09/10/2019 documented as of this encounter (statuses as of 04/15/2024) Medications Medication Sig Dispensed Refills Start Date [...] MG Oral Capsule Take by mouth. Active [place]-3 Fatty Acids 1000 MG Oral Capsule (OMEGA-3) [...] first trimester,S/P bariatric surgery 1000 mcg IM [id number] 08/22/2021 Active documented as of this encounter (statuses as of 04/15/2024) Active Problems Problem Noted Date Diagnosed Date [...] -Vitamin D 800 IU daily -Calcium citrate 4880-6509 mg daily (better absorbed than calcium carbonate) [...] as of this encounter (statuses as of 04/15/2024) Resolved Problems Problem Noted Date Diagnosed Date [...] be handled at the discretion of the dial mounter. 7. For women with a history of [...] as of this encounter (statuses as of 04/15/2024) Immunizations Name Administration Dates Next Due HPV [...] money to get more. Never true 11/26/2023 [place] Depression Scale Answer Date Recorded [place] Depression Scale Total 2 11/29/2023 The thought [...] encounter Miscellaneous Notes * Telephone Encounter - Sheila Ann RN - 04/15/2024 8:58 AM EDT Spoke with pt. She is aware. * Telephone Encounter - Sheila Ann RN - 04/15/2024 8:50 AM EDT left message for patient to call office * Telephone Encounter - Julia Sandoval LPN - 04/15/2024 7:47 AM EDT ----- Message from Barbara Mckeon sent at 04/14/2024 9:54 PM EDT ----- Please let patient know her TSH was normal. Thanks! Barbara Mckeon CNM * Telephone Encounter - Barbara Mckeon CNM - 04/14/2024 4:49 PM EDT Patient is mildly anemic with a hemoglobin of 11.6. It appears that nutrition and weight managementis managing her IV iron infusions. First iron infusion is scheduled for 04/18/24. Forwarding to [place] Laura PA-C, for further clarification on when to repeat iron studies. Thanks! Barbara Mckeon CNM documented in this encounter Plan of Treatment Upcoming Encounters Date Type Department Care Team (Late st Contact Info) Description 04/18/2024 9:00 AM EDT Hem/Onc Treatment Hematology/Oncology Treatment, [place] [address] [place] [phone] Marissa, Chair 10 Hem Onc [facility] [address] 04/29/2024 9:00 AM EDT Nurse Only Nutrition & Weight Management, [facility] [address] [address] Nurse Marlys Jones Nutrition Kyra [address] [place] [address] 05/01/2024 1:00 PM EDT Office Visit Gynecology/Obstetrics [facility] 132 [facility] [place] [address] Bogdan Olivares MD [address] [place] [address] 05/13/2024 8:30 AM EDT Office Visit Gynecology/Obstetrics [facility] [address] [place] [address] BackerMima CRNP [address] [place] [address] 05/27/2024 8:30 AM EDT Office Visit Gynecology/Obstetrics [facility] [address] [place] [address] BackMima clark CRNP [address] [place] [address] 06/10/2024 8:45 AM EDT Office Visit Gynecology/Obstetrics [facility] [address] [place] [address] Samina Flores MD [address] [place] [address] [place] [address] 06/17/2024 8:30 AM EDT Office Visit Gynecology/Obstetrics [facility] [address] [place] [address] Mima Membreno CRNP [address] [place] [address] 06/24/2024 8:30 AM EDT Office Visit Gynecology/Obstetrics [facility] [address] [place] [address] Mima Membreno CRNP [address] [place] [address] 07/09/2024 10:30 AM EDT Office Visit Gynecology/Obstetrics [facility] [address] [place] [address] Mima Membreno CRNP [address] [place] [address] 09/11/2024 9:00 AM EDT Office Visit Nutrition & Weight Management, [facility] [address] [place] [address] Marina Laura PA-C [address] [place] [address] Health Maintenance Due Date Last Done Comments [...] as of this encounter Visit Diagnoses Diagnosis Antepartum anemia- Primary Anemia, antepartum documented in this encounter Advance Directives [...] and were consensually agreed upon. Care Teams Mobile Phone Salesperson Relationship Specialty Start Date End Date Sheila Melendez PA-C [address] [place] [address], [place] [address] PCP - General Physician Game Advisor 01/27/15 documented as of this encounter
--- OUTSIDE RECORDS SUMMARY | 2024-07-02 08:04 | External Medical Summary | Summary of Care ---
Author Name Unknown Organization [facility] Address [address] [place] [address] Phone [phone] Care Team Providers Care Physician Liaison Name Role Phone Sheila Melendez PA-C Primary Care Provide r Encounter Details Date Type Department Care Team (Late st Contact Info) Description 04/17/2024 Telephone Gynecology/Obstetrics [facility] 132 [facility] [place] [address] Barbara Mckeon, [facility] 400 [facility] [place] [phone] Allergies Active Allergy Reactions Criticality Noted Date Comments Enoxaparin Sodium Rash 09/10/2019 documented as of this encounter (statuses as of 04/17/2024) Medications Medication Sig Dispensed Refills Start Date [...] MG Oral Capsule Take by mouth. Active [place]-3 Fatty Acids 1000 MG Oral Capsule (OMEGA-3) [...] first trimester,S/P bariatric surgery 1000 mcg IM [id number] 08/22/2021 Active documented as of this encounter (statuses as of 04/17/2024) Active Problems Problem Noted Date Diagnosed Date [...] -Vitamin D 800 IU daily -Calcium citrate 2803-8062 mg daily (better absorbed than calcium carbonate) [...] as of this encounter (statuses as of 04/17/2024) Resolved Problems Problem Noted Date Diagnosed Date [...] be handled at the discretion of the hand blocker. 7. For women with a history of [...] as of this encounter (statuses as of 04/17/2024) Immunizations Name Administration Dates Next Due HPV [...] money to get more. Never true 11/26/2023 [place] Depression Scale Answer Date Recorded [place] Depression Scale Total 2 11/29/2023 The thought [...] encounter Miscellaneous Notes * Telephone Encounter - Jenniffer Casillas RN - 04/17/2024 11:43 AM EDT ----- Message from Barbara Mckeon sent at 04/17/2024 11:39 AM EDT ----- Please let patient know she screened negative for syphilis. Thanks! Barbara Mckeon CNM documented in this encounter Plan of Treatment Upcoming Encounters Date Type Department Care Team (Late st Contact Info) Description 04/18/2024 8:30 AM EDT Hem/Onc Treatment Hematology/Oncology Treatment, [place] [address] [place] [address] Park, Chair 7 Hem Onc [facility] [address] [place] [address] 05/01/2024 1:00 PM EDT Office Visit Gynecology/Obstetrics [facility] [address] [place] [address] Bogdan Olivares MD [address] [place] [address] 05/01/2024 1:30 PM EDT Nurse Only Nutrition & Weight Management, [facility] [address] [place] [address] [facility], Nurse Gi Nutrition [facility] [address] [place] [address] 05/13/2024 8:30 AM EDT Office Visit Gynecology/Obstetrics [facility] [address] [place] [address] Mima Membreno CRNP [address] [place] [address] 05/27/2024 8:30 AM EDT Office Visit Gynecology/Obstetrics [facility] [address] [place] [address] Mima Membreno CRNP [address] [place] [address] 06/10/2024 8:45 AM EDT Office Visit Gynecology/Obstetrics [facility] [address] [place] [address] Samina Flores MD [address] [place] [address] [place] [address] 06/17/2024 8:30 AM EDT Office Visit Gynecology/Obstetrics [facility] [address] [place] [address] Mima Membreno CRNP [address] [place] [address] 06/24/2024 8:30 AM EDT Office Visit Gynecology/Obstetrics [facility] [address] [place] [address] BackMima clark CRNP [address] [place] [address] 07/09/2024 10:30 AM EDT Office Visit Gynecology/Obstetrics [facility] [address] [place] [address] Mima Membreno CRNP [address] [place] [address] 09/11/2024 9:00 AM EDT Office Visit Nutrition & Weight Management, [facility] [address] [place] [address] [place] Laura PA-C [address] [place] [address] Health Maintenance Due Date Last Done Comments Hepatitis B (1 of 3 - 19+ 3-dose series) 2006 COVID-19 Vaccine (2022- season) 2023 03/04/2021 Pap [...] and were consensually agreed upon. Care Teams Physician Liaison Relationship Specialty Start Date End Date Sheila [place]endez PA-C [address] [place], [place] [address] [address] PCP - General Physician Watch And Clock Maker And Repairer 01/27/15 documented as of this encounter
--- OUTSIDE RECORDS SUMMARY | 2024-07-02 08:04 | External Medical Summary ---
Author Name Unknown Address Unknown Organization K01:LABORATORY [facility] - [facility] [address] [place] [address] Laboratory Report Ordering Provider Test Date Status JOSEPH ARAUZ 04/14/2024 09:34:23 Final Observation Date Value Abnormality Reference (Units ) Status Creatinine 04/14/2024 09:34:23 0.6 0.5-1.0 (mg/dL) Final Glomerular filtration rate/1.73 sq M.predicted [Volume Rate/Area] in Serum, Plasma or Blood by Creatinine-based formula (CKD-EPI) 04/14/2024 09:34:23 >90 >=60 (mL/min) Final eGFR is calculated based on the CKD-EPI 2020 equation Performing Location LABORATORY [facility] - [address] [place] [address]
--- OUTSIDE RECORDS SUMMARY | 2024-07-02 08:04 | External Medical Summary | Summary of Care ---
Author Name Unknown Organization [facility] Address [address] [facility] [place] [address] Phone [phone] Care Team Providers Care Mud Analysis Operator Name Role Phone Sheila [place]endez PA-C Primary Care Provide r Reason for Visit * Reason Comments Nurse Documentation B12 shot Encounter Details Date Type Department Care Team (Late st Contact Info) Description 05/01/2024 1:30 PM EDT Nurse Only Nutrition & Weight Management, [facility] [address] [place] [address] [facility] 132 [facility] [address] Nurse Documentation (B12 shot) Allergies Active Allergy [...] Oral Capsule Take by mouth. Active [place]-3 Fatty Acids 1000 MG Oral Capsule (OMEGA-3) [...] first trimester,S/P bariatric surgery 1000 mcg IM [id number] 08/22/2021 Active documented as of this encounter [...] -Vitamin D 800 IU daily -Calcium citrate 4804-2988 mg daily (better absorbed than calcium carbonate) [...] be handled at the discretion of the cleaner carpet and upholstery. 7. For women with a history of [...] money to get more. Never true 11/26/2023 [place] Depression Scale Answer Date Recorded [place] Depression Scale Total 2 11/29/2023 The thought [...] Sign Reading Time Taken Comments Blood Pressure 108/62 05/01/2024 1:26 PM EDT Pulse 108 05/01/2024 1:26 PM EDT Temperature 36.7 C (98.1 F) 05/01/2024 1:26 PM ED T Respiratory Rate - - Oxygen Saturation 97% 05/01/2024 1:26 PM EDT Inhaled Oxygen Concentration - - Weight 85.4 kg (188 lb 4.8 oz) 05/01/2024 1:26 P M EDT Height - - Body Mass Index 32.32 05/01/2024 12:59 PM EDT documented in this [...] Progress Notes * Chepe Hill LPN - 05/01/2024 1:20 PM EDT Pre-Administration Time Out Procedure Performed: [...] Nursing Notes * Chepe Hill LPN - 05/01/2024 1:26 PM EDT Chief Complaint Patient presents with Nurse Documentation B12 shot documented in this encounter Plan of Treatment Upcoming Encounters Date Type Department Care Team (Late st Contact Info) Description 05/02/2024 8:30 AM EDT Hem/Onc Treatment Hematology/Oncology [address], [address] [phone] Marissa, Chair 4 Hem Onc [facility] [address] 05/13/2024 8:30 AM EDT Office Visit Gynecology/Obstetrics [facility] [address] [place] [address] Mima Membreno CRNP [address] [place] [address] 05/27/2024 8:30 AM EDT Office Visit [facility]necology[facility]Obstetrics [facility] [address] [place] [address] Mima Membreno CRNP [address] [place] [address] 05/27/2024 9:30 AM EDT Nurse Only Nutrition & Weight Management, [facility] [address] [place] [address] Robert Nurse Gi Nutrition [facility] [address] [place] [address] 06/10/2024 8:45 AM EDT Office Visit Gynecology/Obstetrics [facility] [address] [place] [address] Samina Flores MD [address] [place] [address] [place] [address] 06/17/2024 8:30 AM EDT Office Visit Gynecology/Obstetrics [facility] [address] [place] [address] Mima Membreno CRNP [address] [place] [address] 06/24/2024 8:30 AM EDT Office Visit Gynecology/Obstetrics [facility] [address] [place] [address] Mima Membreno CRNP [address] [place] [address] 07/09/2024 10:30 AM EDT Office Visit Gynecology/Obstetrics [facility] [address] [place] [address] Mima Membreno CRNP [address] [place] [address] 09/11/2024 9:00 AM EDT Office Visit Nutrition & Weight Management, [facility] [address] [place] [address] [place] Laura PA-C [address] [place] [address] Health Maintenance Due Date Last Done Comments Hepatitis B (1 of 3 - 19+ 3-dose series) 2006 COVID-19 Vaccine (2 - 2022-24 season) 2023 03/04/2021 Pap Smear 06/09/2026 06/09/2023, [...] (Cyanocobalamin) inj 1,000 mcg 1,000 mcg, Intramuscular, [id number], First dose on 08/22/21 at 1445, Until Discontinued Given 05/01/2024 1:29 PM EDT 1,000 mcg Deltoid Left Upper Given 11/29/2023 8:47 AM EST 1,000 mcg De ltoid Left Upper Given 11/05/2023 9:35 AM EST 1,000 mcg De ltoid Left Upper documented [...] and were consensually agreed upon. Care Teams Mud Analysis Operator Relationship Specialty Start Date End Date Sheila Melendez PA-C [address] [place] [address], [place] [address] PCP - General Physician Frame Coverer 01/27/15 documented as of this encounter
--- OUTSIDE RECORDS SUMMARY | 2024-07-02 08:04 | External Medical Summary ---
Author Name Unknown Address Unknown Organization K01:LABORATORY [facility] - [address] [facility] [place] [address] Laboratory Report Ordering Provider Test Date Status JOSEPH ARAUZ 04/14/2024 09:34:23 Final Observation Date Value Abnormality Reference (Units ) Status SYNC LEUKOCYTES IN BLOOD BY AUTOMATED COUNT 04/14/2024 09:34:23 7.91 4.00-10.80 (K/uL) Final Segs 04/14/2024 09:34:23 76.7 Above high normal 40.0-75.0 (%) Final Lymphs % 04/14/2024 09:34:23 13.8 Below low normal 18.0-42.0 (%) Final Monos 04/14/2024 09:34:23 8.2 1.0-11.0 (%) Final Eosinophils 04/14/2024 09:34:23 0.3 0.0-6.0 (%) Final Basos 04/14/2024 09:34:23 0.5 0.0-2.0 (%) Final Immature Granulocyte, Percent 04/14/2024 09:34:23 0.5 0.0-2.0 (%) Final Absolute Segs 04/14/2024 09:34:23 6.07 1.80-7.70 (K/uL) Final Lymphs, absolute 04/14/2024 09:34:23 1.09 1.00-4.80 (K/ul) Final Monos, Abs 04/14/2024 09:34:23 0.65 0.00-1.10 (K/uL) Final Eos, Abs 04/14/2024 09:34:23 0.02 0.00-0.70 (K/uL) Final Basos, Abs 04/14/2024 09:34:23 0.04 0.00-0.20 (K/uL) Final Immature Granulocytes, Number 04/14/2024 09:34:23 0.04 0.00-0.20 (K/uL) Final Performing Location LABORATORY [facility] - [address] [facility] [address]
--- OUTSIDE RECORDS SUMMARY | 2024-07-02 08:04 | External Medical Summary | Summary of Care ---
Author Name Unknown Organization [facility] Address [address] [facility] [place] [address] Phone [phone] Care Team Providers Care Co Chairman Name Role Phone Sheila Melendez PA-C Primary Care Provide r Reason for Visit * Reason Comments Return Visit Encounter Details Date Type Department Care Team (Late st Contact Info) Description 04/14/2024 9:15 AM EDT Office Visit Gynecology/Obstetric s Robin Jones [address] [place] [address] Lavonne Babin PA-C [address] [place] [address] Supervision of high-risk , unspecified trimester*; affected by previous bariatric surgery, currently in third trimester; Depression complicating , antepartum; History of gestational diabetes; Antepartum multigravida of advanced maternal age; H/O section; Need for itsjjjysni-njeqgpv-zk rtussis (Tdap) vaccine Allergies Active Allergy Reactions Criticality Noted Date Comments Enoxaparin Sodium Rash 09/10/2019 documented as of this encounter (statuses as of 04/14/2024) Medications Medication Sig Dispensed Refills Start Date [...] MG Oral Capsule Take by mouth. Active Ran[place]-3 Fatty Acids 1000 MG Oral Capsule (OMEGA-3) [...] first trimester,S/P bariatric surgery 1000 mcg IM [id number] 08/22/2021 Active documented as of this encounter (statuses as of 04/14/2024) Active Problems Problem Noted Date Diagnosed Date [...] -Vitamin D 800 IU daily -Calcium citrate 2051-2058 mg daily (better absorbed than calcium carbonate) [...] as of this encounter (statuses as of 04/14/2024) Resolved Problems Problem Noted Date Diagnosed Date [...] be handled at the discretion of the patient representative. 7. For women with a history of [...] as of this encounter (statuses as of 04/14/2024) Immunizations Name Administration Dates Next Due HPV [...] money to get more. Never true 11/26/2023 Pitcher Depression Scale Answer Date Recorded Pitcher Depression Scale Total 2 11/29/2023 The thought [...] Reading Time Taken Comments Blood Pressure 108/62 04/14/2024 9:03 AM EDT Pulse - - Temperature - - Respiratory Rate - - Oxygen Saturation - - Inhaled Oxygen Concentration - - Weight 85.7 kg (189 lb) 04/14/2024 9:03 AM EDT Height 162.6 cm (5' 4") 04/14/2024 9:03 AM EDT Body Mass Index 32.44 04/14/2024 9:03 AM EDT documented in this encounter Functional [...] Progress Notes * Lavonne Babin PA-C - 04/14/2024 9:19 AM EDT 28w0d Completing third tri labs including glucola today. Counseled on TDaP, patient accepts -- given. Plans repeat C/S with BTL. Buffing Machine Operator aware, pt to schedule 07/02/2024 -- met with Brandie after appointment. Plan tubal. However, patient states would like appointment with MD to discuss delivery week prior in d/t fear of going into labor. Advised typically planned c/s are in 39 week if not other indications for delivery sooner. Denies VB, LOF, contractions. Pos fm. RTC in 2 weeks Lavonne Babin PA-C documented in this encounter Nursing Notes * Julia Sandoval LPN - 04/14/2024 9:15 AM EDT 28w0d Would like to schedule ercs today Tdap Patient here for tdap injection. Patient doing well no complaints. Injection given IM as ordered. Patient tolerated well. Patient to follow up as directed. Patient instructed to call if any complications. Patient verbalized understanding of instructions given and her follow up appt for MAGUI Injection site: Left Deltoid Medication Source: Dispensed stock medication documented in this encounter Plan of Treatment Upcoming Encounters Date Type Department Care Team (Late st Contact Info) Description 04/18/2024 9:00 AM EDT Hem/Onc Treatment Hematology/Oncology Treatment, [place] [address] [place] [phone] Marissa, Chair 10 Hem Onc [facility] [address] [facility] [place] [address] 04/29/2024 9:00 AM EDT Nurse Only [facility] [address] [place] [address] JonesNurse gloria Gi Nutrition Kyra [address] [place] [address] 05/01/2024 1:00 PM EDT Office Visit Gynecology/Obstetrics Robin Butchers [address] [place] [address] Bogdan Olivares MD [address] [place] [address] 05/13/2024 8:30 AM EDT Office Visit Gynecology/Obstetrics Robin Jones [address] [place] [address] Mima Membreno CRNP [address] [place] [address] 05/27/2024 8:30 AM EDT Office Visit Gynecology/Obstetrics Robin Jones [address] [place] [address] Mima Membreno CRNP [address] [place] [address] 06/10/2024 8:45 AM EDT Office Visit Gynecology/Obstetrics Robin Butchers [address] [place] [address] Samina Flores MD [address] [place] [address] [place] [address] 06/17/2024 8:30 AM EDT Office Visit Gynecology/Obstetrics Robin Jones [address] [place] [address] Mima Membreno CRNP [address] [place] [address] 06/24/2024 8:30 AM EDT Office Visit Gynecology/Obstetrics [facility] [address] [place] [address] Mima Membreno CRNP [address] [place] [address] 07/09/2024 10:30 AM EDT Office Visit Gynecology/Obstetrics [facility] [address] [place] [address] BackMima clark CRNP [address] [place] [address] 09/11/2024 9:00 AM EDT Office Visit Nutrition & [facility] Management, [facility] [address] [place] [address] [place] Laura PA-C [address] [place] [address] Health Maintenance Due Date Last Done Comments Hepatitis B (1 of 3 - 19+ 3-dose series) 2006 COVID-19 Vaccine ( - 2022- season) 2023 03/04/2021 Pap Smear [...] maternal age H/O section Other postprocedural status Need for zhoupqgpxl-dkgvlmt-hwivcwdks (Tdap) vaccine Need for prophylactic vaccination with combined bjwibuxboz-kigpbtc-opvipjoai (DTP) vaccine documented in this encounter Advance Directives * Full Code (Latest Code Status on File) Date Activated Date Inactivated Comments 08/26/2019 11:42 AM 08/27/2019 4:15 PM This order reflects the patients wishes and were consensually agreed upon. * Full Code Date Activated Date Inactivated Comments 08/26/2019 6:51 AM 08/26/2019 11:42 AM This order reflects the patients wishes and were consensually agreed upon. Care Teams Co Chairman Relationship Specialty Start Date End Date Sheila Melendez PA-C [address] [facility], [place] [address] PCP - General Physician Senior Research Engineer 01/27/15 documented as of this encounter
--- OUTSIDE RECORDS SUMMARY | 2024-07-02 08:04 | External Medical Summary | Summary of Care ---
Author Name Unknown Organization [facility] Address [address] [facility] [place] [address] Phone [phone] Care Team Providers Care Medication Administration Professional Name Role Phone Sheila Melendez PA-C Primary Care Provide r Reason for Visit * Reason Comments Return Visit Encounter Details Date Type Department Care Team (Late st Contact Info) Description 05/01/2024 1:00 PM EDT Office Visit Gynecology/Obstetric s Robin Jones [address] [place] [address] Bogdan Olivares MD [address] [place] [address] Supervision of high-risk , unspecified trimester*; affected [...] MG Oral Capsule Take by mouth. Active Salix-3 Fatty Acids 1000 MG Oral Capsule (OMEGA-3) [...] first trimester,S/P bariatric surgery 1000 mcg IM [id number] 08/22/2021 Active documented as of this encounter (statuses as of 05/01/2024) Active Problems Problem Noted Date Diagnosed Date Antepartum anemia 04/14/2024 History of gestational diabetes 11/29/2023 Overview: Early glucola Antepartum multigravida of advanced maternal age 0111/29/2023 H/O section 11/29/2023 Overview: Desires repeat c/s with BTL Iron deficiency anemia rossana gavin to inadequate dietary iron intake 09/18/2023 [...] -Vitamin D 800 IU daily -Calcium citrate 3417-4841 mg daily (better absorbed than calcium carbonate) [...] be handled at the discretion of the industrial truck driver. 7. For women with a history [...] money to get more. Never true 11/26/2023 [place]a Depression Scale Answer Date Recorded [place]a Depression Scale Total 2 11/29/2023 The thought [...] Sign Reading Time Taken Comments Blood Pressure 104/64 05/01/2024 12:59 PM EDT Pulse - - Temperature - - Respiratory Rate - - Oxygen Saturation - - Inhaled Oxygen Concentration - - Weight 86.6 kg (191 lb) 05/01/2024 12:59 PM EDT Height 162.6 cm (5' 4") 05/01/2024 12:59 PM EDT Body Mass Index 32.79 05/01/2024 12:59 PM EDT documented in this [...] as of this encounter Progress Notes * Bogdan Olivares MD - 05/01/2024 1:22 PM EDT Pt doing well No complaints Discussed c/sec and BTL * [place] Ines Jay LPN - 05/01/2024 1:01 PM EDT 30w3d Discuss repeat csection and BTL documented in this encounter Plan of Treatment Upcoming Encounters Date Type Department Care Team (Late st Contact Info) Description 05/02/2024 8:30 AM EDT Hem/Onc Treatment Hematology/Oncology Treatment, [address] [place] [phone] Marissa, Chair 4 Hem Onc [facility] [address] 05/13/2024 8:30 AM EDT Office Visit Gynecology/Obstetrics [facility] [address] [place] [address] Mima Membreno CRNP [address] [place] [address] 05/27/2024 8:30 AM EDT Office [facility] [address] [place] [address] Mima Membreno CRNP [address] [place] [address] 05/27/2024 9:30 AM EDT Nurse Only Nutrition & Weight Management, Robin [facility] [address] [place] [address] JonesNurse Marlys castro Nutrition [facility] [address] [place], [place] [address] 06/10/2024 8:45 AM EDT Office Visit Gynecology/Obstetrics [facility] [address] [place], [place] [address] Samina Flores MD [address] [place] [address] [place] [address] 06/17/2024 8:30 AM EDT Office Visit Gynecology/Obstetrics [facility] [address] [place], [place] [address] BackerMima CRNP [address] [place] [address] 06/24/2024 8:30 AM EDT Office Visit Gynecology/Obstetrics [facility] [address] [place] [address] BackerMima CRNP [address] [place] [address] 07/09/2024 10:30 AM EDT Office Visit Gynecology/Obstetrics [facility] [address] [place] [address] BackerMima CRNP [address] [place] [address] 09/11/2024 9:00 AM EDT Office Visit Nutrition & Weight Management, [facility] [address] [place] [address] [place] Laura PA-C [address] [place] [address] Scheduled Orders Name Type Priority Associated Diagnoses Orde r Schedule CBC WITH WBC DIFFERENTIAL AND ANEMIA REFLEX WORKUP Lab Routine Supervision of high-risk , unspecified trimester Expected: 05/01/2024, Expires: 05/01/2025 Health Maintenance Due Date Last Done Comments [...] and were consensually agreed upon. Care Teams Medication Administration Professional Relationship Specialty Start Date End Date Sheila Melendez PA-C [address] [place] [address], [place] [address] PCP - General Physician Gas Appliance Servicer 01/27/15 documented as of this encounter
--- OUTSIDE RECORDS SUMMARY | 2024-07-02 08:05 | External Medical Summary | Summary of Care ---
Author Name Unknown Organization [facility] Address [address] [facility] [address] Phone [phone] Care Team Providers Care Numerical Control Machine Machinist Name Role Phone Sheila Melendez PA-C Primary Care Provide r Encounter Details Date Type Department Care Team (Late st Contact Info) Description 04/01/2024 Telephone Gynecology/Obstetrics [facility] [address] [facility] [place] [address] Samina Flores MD [address] [facility] [place] [address] Allergies Active Allergy Reactions Criticality Noted Date Comments Enoxaparin Sodium Rash 09/10/2019 documented as of this encounter (statuses as of 04/01/2024) Medications Medication Sig Dispensed Refills Start Date [...] Oral Capsule Take by mouth. 0 Active [place]-3 Fatty Acids 1000 MG Oral Capsule (OMEGA-3) Take 1 Capsule by mouth in the morning. 0 Active Clindamycin Phosphate 1 % External Lotion APPLY 1 APPLICATION TOPICALLY TWICE DAILY TO RASH ON FACE AND PIMPLY AREAS NEEDED 0 02/28/2024 Active Hospital, Clinic, or Other Facility Administered Medication Ordered Dose Route Frequency Start Date End Date Status vitamin b-12 (Cyanocobalamin) inj 1,000 mcgIndications:Encounter for supervision of normal first in first trimester,S/P bariatric surgery 1000 mcg IM [id number] 08/22/2021 Active documented as of this encounter (statuses as of 04/01/2024) Active Problems Problem Noted Date Diagnosed Date [...] -Vitamin D 800 IU daily -Calcium citrate 5077-9358 mg daily (better absorbed than calcium carbonate) [...] as of this encounter (statuses as of 04/01/2024) Resolved Problems Problem Noted Date Diagnosed Date [...] be handled at the discretion of the playground monitor. 7. For women with a history of [...] with serious comorbidity 07/08/2012 Overview: bmi= 39.99 8/13/12 ICD-10 update of inactive diagnosis Abdominal pain, [...] as of this encounter (statuses as of 04/01/2024) Immunizations Name Administration Dates Next Due HPV [...] money to get more. Never true 11/26/2023 Dundee Depression Scale Answer Date Recorded [place] Depression Scale Total 2 11/29/2023 The thought [...] Telephone Encounter - Jenniffer Casillas RN - 04/01/2024 10:01 AM EDT Patient calling in . She is 26w1d . Reports she was in the ER at [facility] last night for possible bladder spasms, ? Kidney stones. Reports that there were no concerns with baby. Currently denies any concerns. She is having + FM, no leakingor bleeding, no severe pain. Patient is asking if she is okay to just follow up at her next MAGUI appt on 04/14/2024 or if she needs to have any sooner follow up. Dr. Flores, we do not have her ER recordsinto the chart yet, I have called and requested these, are you able to look and see her records from last night and advise? Patient aware to call office back with any concerns or changes. documented in this encounter Plan of Treatment Upcoming Encounters Date Type Department Care Team (Late st Contact Info) Description 04/03/2024 8:20 AM EDT Office Visit Nutrition & Weight Management, [facility] [address] [place] [address] Marina Laura PA-C [address] [place] [address] 04/14/2024 9:00 AM EDT Laboratory Laboratory, [facility] [address] [place] [phone] [facility] [address] [place] [address] 04/14/2024 9:15 AM EDT Office Visit Gynecology/Obstetrics [facility] [address] [place] [address] Lavonne Babin PA-C [address] [place] [address] 04/29/2024 8:30 AM EDT Office Visit Gynecology/Obstetrics [facility] [address] [place] [address] Mima Membreno CRNP [address] [place] [address] 04/29/2024 9:00 AM EDT Nurse Only Nutrition & Weight Management, [facility] [address] [place] [address] [facility] Nurse Gi Nutrition [facility] [address] [place] [address] 05/13/2024 8:30 AM EDT Office Visit Gynecology/Obstetrics [facility] [address] [place] [address] Mima Membreno CRNP [address] [place] [address] 05/27/2024 8:30 AM EDT Office Visit Gynecology/Obstetrics [facility] [address] [place] [address] BackMima clark CRNP [address] [place] [address] 06/10/2024 8:45 AM EDT Office Visit Gynecology/Obstetrics [facility] [address] [place] [address] Samina Flores MD [address] [place] [address] [place] [address] 06/17/2024 8:30 AM EDT Office Visit Gynecology/Obstetrics [facility] [address] [place] [address] Mima Membreno CRNP [address] [place] [address] 06/24/2024 8:30 AM EDT Office Visit Gynecology/Obstetrics [facility] [address] [place] [address] Mima Membreno CRNP [address] [place] [address] 09/11/2024 9:00 AM EDT Office Visit Nutrition & Weight Management, [facility] [address] [place] [address] [place] Laura PA-C [address] [place] [address] Health Maintenance Due Date Last Done Comments Hepatitis B (1 of 3 - 19+ 3-dose series) 2006 COVID-19 Vaccine ( season) 2023 03/04/2021 Pap Smear 06/09/2026 06/09/2023, 12/28, 01/21/2020, Additional history exists Diabetes Screening 03/31/2027 03/31/2024, 1 , 09/10/2023, Additional history exists Cervical Cancer Screening [...] and were consensually agreed upon. Care Teams Numerical Control Machine Machinist Relationship Specialty Start Date End Date Sheila Melendez [facility]C [facility] [address] PCP - General Physician Patch Sander 01/27/15 documented as of this encounter
--- OUTSIDE RECORDS SUMMARY | 2024-07-02 08:05 | External Medical Summary | Summary of Care ---
Author Name Unknown Organization [facility] Address [address] [facility] [place] [address] Phone [phone] Care Team Providers Care Tack Picker Name Role Phone Sheila Melendez PA-C Primary Care Provide r Reason for Visit * Reason Comments Weight Management The pt stated she is here to follow up with weight management Encounter Details Date Type Department Care Team (Late st Contact Info) Description 04/03/2024 8:20 AM EDT Office Visit Nutrition & Weight Management, [facility] [address] [place] [address] Marina Laura PA-C [address] [place] [address] Intestinal postoperative nonabsorption* Allergies Active Allergy Reactions Criticality Noted Date Comments Enoxaparin Sodium Rash 09/10/2019 documented as of this encounter (statuses as of 04/03/2024) Medications Medication Sig Dispensed Refills Start Date [...] Oral Capsule Take by mouth. 0 Active [place]-3 Fatty Acids 1000 MG Oral Capsule (OMEGA-3) Take 1 Capsule by mouth in the morning. 0 Active Clindamycin Phosphate 1 % External Lotion APPLY 1 APPLICATION TOPICALLY TWICE DAILY TO RASH ON FACE AND PIMPLY AREAS NEEDED 0 4 Active Amoxicillin 500 MG Oral Capsule (Amoxil)Indications :Acute maxillary sinusitis, recurrence not specified Take 1 Capsule by mouth in the morning and 1 Capsule before bedtime. Do all this for 7 days. 14 Capsule 0 4 04/03/20 24 Discontinued Polymyxin B-Trimethoprim 33415-6.1 UNIT/ML-% Ophthalmic SolutionIndications :Acute bacterial conjunctivitis of both eyes Instill 1 Drop into both eyes in the morning and 1 Drop at noon and 1 Drop in the evening and 1 Drop before bedtime. Do all this for 7 days. 10 mL 0 4 04/03/20 24 Discontinued Hospital, Clinic, or Other Facility Administered Medication Ordered Dose Route Frequency Start Date End Date Status vitamin b-12 (Cyanocobalamin) inj 1,000 mcgIndications:Encounter for supervision of normal first in first trimester,S/P bariatric surgery 1000 mcg IM [id number] 08/22/2021 Active documented as of this encounter (statuses as of 04/03/2024) Active Problems Problem Noted Date Diagnosed Date [...] -Vitamin D 800 IU daily -Calcium citrate 5809-0111 mg daily (better absorbed than calcium carbonate) [...] as of this encounter (statuses as of 04/03/2024) Resolved Problems Problem Noted Date Diagnosed Date [...] be handled at the discretion of the wooden barrel mechanic. 7. For women with a history of [...] as of this encounter (statuses as of 04/03/2024) Immunizations Name Administration Dates Next Due HPV [...] money to get more. Never true 11/26/2023 Rupert Depression Scale Answer Date Recorded Rupert Depression Scale Total 2 11/29/2023 The thought [...] Sign Reading Time Taken Comments Blood Pressure 102/62 04/03/2024 8:12 AM EDT Pulse 84 04/03/2024 8:12 AM EDT Temperature 36.6 C (97.9 F) 04/03/2024 8:12 AM ED T Respiratory Rate - - Oxygen Saturation 98% 04/03/2024 8:12 AM EDT Inhaled Oxygen Concentration - - Weight 85.6 kg (188 lb 11.2 oz) 04/03/2024 8:12 AM EDT Height - - Body Mass Index 32.39 03/21/2024 12:06 PM EDT documented in this encounter Functional [...] as of this encounter Progress Notes * Marina Laura PA-C - 04/03/2024 8:13 AM EDT [facility] Bariatric Surgery / Nutrition Post-operative Follow-Up s/p laprascopic Gastric Bypass Referring physician: Sheila Melendez PA-C Nursing Notes: Chepe Hill LPN 04/03/24 0812 Sign at exiting of workspace Chief Complaint Patient presents with Weight Management The pt stated she is here to follow up with weight management Beatriz Kely Martinez is a 38 year old female who presents in follow up to the comprehensive weight management clinic. 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 Blunt on August 26, 2019. - Weight at the initial clinic visit 267 lbs - Weight at the time of the surgery 246 lbs - Today's weight: 187 lbs Wt Readings from Last 6 Encounters: 03/21/24 84.8 kg (187 lb) 03/20/24 85 kg (187 lb 8 oz) 03/20/24 85.3 kg (188 lb) 03/02/24 84.4 kg (186 lb) 02/21/24 83.3 kg (183 lb 9.6 oz) 02/21/24 82.5 kg (181 lb 14.4 oz) 04/03/2024 -in clinic follow up -26 weeks -was in the ER Sunday; ?bladder spasms or kidney stones-- no definitive stone on imaging-- no hematuria -doesn't always get MVI in twice daily; did need iron transfusions in the past -overall doing well 02/04/24 -Routine dietary follow up, doing well -~15 weeks -Dealing with nausea at night before bed -C section Jun 30 09/10/2023 -annual BOLD -doing really well -baby is now 18 months old - The patient is receiving dietary and physical activity instructions as part of their weight management treatment. Current recommended meal plan: Stage 4: Describes typical diet history/24 hr recall Current diet: Breakfast: protein shake Snack: toast, yogurt Lunch:soup, sandwich, leftovers Snack: yogurt, pretzels Dinner: chicken, protein pasta, salad Snack: none maybe fruit Drinks: water, powerade zero sugar, NS iced tea Restaurant meals: rare Patient is getting 60 grams of protein a day. Patient is getting 64 ounces of fluid a day. Compliance with meal plan: yes Activity Level: Very light activity TYPE/DURATION: no formal exercise Taking supplements as ordered for each of the following: MVI- Equate MVI BID Calcium- Bariatric Advantage chews BID Vitamin D- 1000 IU daily B12- every 1 months Vitamin B12 (pg/mL) Date Value 09/10/2023 451 11/28/2019 456 Psychosocial Adjustment Issues: No, no Issues with stress management Depression: Stable Other Confirmed Mental Health Diagnosis: no history Alcohol Use: None Tobacco Use: Never Substance Abuse: None Patient Active Problem List Diagnosis Code ADVANCE DIRECTIVE INFORMATION Hypothyroidism E03.9 PCOS (polycystic ovarian syndrome) E28.2 Gastroesophageal reflux disease K21.9 Depression with anxiety F41.8 S/P bariatric surgery Z98.84 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 Supervision of high-risk , unspecified trimester O09.90 complicated by previous bariatric surgery O99.840 Depression complicating , antepartum O99.340, F32.A COVID-19 vaccine series started Z23 Iron deficiency anemia secondary to inadequate dietary iron intake D50.8 History of gestational diabetes Z86.32 Antepartum multigravida of advanced maternal age O09.529 H/O section Z98.891 Hypertension: No BP Readings from Last 3 Encounters: 03/21/24 104/64 03/20/24 116/70 03/02/24 122/66 CHF: No CAD: No PVD: No Dyslipidemia: No CHOLESTEROL - [facility] Date/Time Value Ref Range Status 09/10/2023 01:38 PM 165 <200 mg/dL Final Comment: Total Cholesterol Reference Ranges (mg/dL): <200 Desirable 200-239 Borderline high >=240 High 07/19/2022 08:24 AM 150 <200 mg/dL Final Comment: Total Cholesterol Reference Ranges (mg/dL): <200 Desirable 200-239 Borderline high >=240 High 08/10/2021 08:51 AM 127 <200 mg/dL Final Comment: Total Cholesterol Reference Ranges (mg/dL): <200 Desirable 200-239 Borderline high >=240 High 11/28/2019 09:01 AM 148 <200 mg/dL Final Comment: Total Cholesterol Reference Ranges (mg/dL) <200 Desirable 200-239 Borderline high >=240 High 02/12/2019 10:28 AM 244 (H) <200 mg/dL Final Comment: TOTAL CHOLESTEROL REFERENCE RANGES(mg/dL) <200 DESIRABLE 200-239 BORDERLINE HIGH >239 HIGH CHOLESTEROL-HDL RATIO - [facility] Date/Time Value Ref Range Status 02/12/2019 10:28 AM 5.5 Final DVT/PE/ Coagulopathy: No Stroke: No Sleep Apnea: Yes, no treatment Asthma: No COPD: No Polycystic Ovarian Syndrome: No Insulin Resistance: No Diabetes: No Lab Results Component Value Date/Time HEMOGLOBIN A1C - [facility] 5.3 09/10/2023 01:38 PM HEMOGLOBIN A1C - [facility] 5.0 11/28/2019 09:01 AM GERD: No Liver Disease: NO History History of nephrolithiasis: No. Lab Results Component Value Date/Time CREATININE - [facility] 0.7 09/10/2023 01:38 PM CREATININE - [facility] 0.7 11/28/2019 09:01 AM CREATININE-OUTSIDE LAB 0.47 (L) 03/31/2024 12:00 AM CKD:No Osteoarthritis: No Musculoskeletal Disease: No Lovenox [enoxaparin sodium] Current Outpatient Medications Medication Sig Dispense Refill Calcium+D3 600-800 MG-UNIT Oral Tablet Take by mouth 1 Tablet 3 times a day . All chews Cholecalciferol (VITAMIN D) 25 MCG (1000 UT) TABS Take by mouth. Childrens Chewable Vitamins Oral Tablet Chewable Take 1 Tablet by mouth in the morning and 1 Tabletbefore bedtime. Folic Acid 5 MG Oral Capsule Take by mouth. [place]-3 Fatty Acids 1000 MG Oral Capsule (OMEGA-3) Take 1 Capsule by mouth in the morning. Clindamycin Phosphate 1 % External Lotion APPLY 1 APPLICATION TOPICALLY TWICE DAILY TO RASH ON FACEAND PIMPLY AREAS NEEDED Current Facility-Administered Medications Medication Dose Route Frequency Provider Last Rate Last Admin vitamin b-12 (Cyanocobalamin) inj 1,000 mcg 1,000 mcg Intramuscular Q4 Weeks Marina Laura PA-C 1,000 mcg at 11/29/23 0847 REVIEW OF SYSTEMS: Review of Systems Gastrointestinal: Had pain on Sunday and went to the ER. ? Bladder spasm or kidney stone-- nothing definite on ultrasound, no hematuria. She was monitored in L&D and everything was normal. Psychiatric/Behavioral: Not on medications currently All other systems reviewed and are negative. PHYSICAL EXAMINATION: LMP 10/01/2023 Physical Exam Vitals and nursing note reviewed. Constitutional: Appearance: Normal appearance. HENT: Head: Normocephalic and atraumatic. Cardiovascular: Normal rate. Pulmonary: Effort: Pulmonary effort is normal. No respiratory distress. Neurological: Mental Status: Alert and oriented to person, place, and time. Psychiatric: Mood and Affect: Mood normal. Assessment/Plan: S/P Gastric Bypass Surgery: Doing very well overall. Will continue with current meal plan. MVI: child chew BID Calcium: BA chew getting 2 right now Vitamin D: daily-- 1000 IU daily B12: Monthly Other supplements: Folic acid 1000 mcg daily, will start omega 3 fatty acid 200- 300 mg DHA/EPA Continue to increase physical activity. Liver Biopsy: No Beatriz was seen today for weight management. Diagnoses and all orders for this visit: Intestinal postoperative nonabsorption Didn't tolerate oral iron -- constipation Consider venofer if iron is low Did have transfusion right before she got Recheck labs today Plan PTH 25-Hydroxy Vitamin D Copper, Serum or Plasma Zinc Vitamin B12 Folic Acid Ferritin Iron Screen, Including TIBC Vitamin A (Retinol) Vitamin B1 (Thiamine), Blood, LC/MS/MS Hemoglobin A1C -as above Check labs, iv venofer if needed Aim for at least 80g protein daily (getting about 70g)-- try protein randhawa, protein powder Aim for minimum 64 ounces fluid AMANDA on CPAP -not on treatment currently Depression with anxiety Doing well Not on medications right now- Hypothyroidism, unspecified type -stable, not on medication Gastroesophageal reflux disease with esophagitis without hemorrhage -resolved PCOS (polycystic ovarian syndrome) Vitamin D deficiency -stable, continue Vit D 1000 IU daily The patient will return to the weight management clinic in 5 months as scheduled. She was instructed to call in the meantime with any concerns or questions prior to her next clinic visit. I spent a total of 32 minutes on the date of service in preparation, delivery, and documentation ofthe care provided to Beatriz Martinez excluding any time spent in the performance of separately billed services.This included but was no limited to providing counseling about the benefits of weight loss, about their nutritional status, detailed explanations about calorie count, types of nutrients tochoose, and composition of the meals. Motivational interview provided in order to prepare the patient to achieve future goals. Marina Laura PA-C, [facility] Nutrition and Weight Management [facility] ([facility]) documented in this encounter Nursing Notes * Chepe Hill LPN - 04/03/2024 8:12 AM EDT Chief Complaint Patient presents with Weight Management The pt stated she is here to follow up with weight management documented in this encounter Plan of Treatment Upcoming Encounters Date Type Department Care Team (Late st Contact Info) Description 04/14/2024 9:00 AM EDT Laboratory Laboratory, [facility] [address] [place] [phone] [facility] [address] [place] [address] 04/14/2024 9:15 AM EDT Office Visit Gynecology/Obstetrics [facility] [address] [place] [address] Lavonne Babin PA-C [address] [place] [address] 04/29/2024 8:30 AM EDT Office Visit Gynecology/Obstetrics [facility] [address] [place] [address] Mima Membreno CRNP [address] [place] [address] 04/29/2024 9:00 AM EDT Nurse Only Nutrition & Weight Management, [facility] [address] [place] [address] [facility], Nurse Gi Nutrition [facility] [address] [place] [address] 05/13/2024 8:30 AM EDT Office Visit Gynecology[facility]Obst[facility] [address] [place] [address] Mima Membreno CRNP [address] [place] [address] 05/27/2024 8:30 AM EDT Office Visit Gynecology/Obst[facility]s [facility] [address] [place] [address] Mima Membreno CRNP [address] [place] [address] 06/10/2024 8:45 AM EDT Office Visit Gynecology/Obstetrics [facility] [address] [place] [address] Samina Flores MD [address] [place] [address] [place] [address] 06/17/2024 8:30 AM EDT Office Visit Gynecology/Obstetrics [facility] [address] [facility] [place] [address] Mima Membreno CRNP [address] [place] [address] 06/24/2024 8:30 AM EDT Office Visit Gynecology/Obstetrics [facility] [address] [place] [address] Mima Membreno CRNP [address] [place] [address] 09/11/2024 9:00 AM EDT Office Visit Nutrition & Weight Management, [facility] [address] [place] [address] Marina Laura PA-C [address] [place] [address] Pending Results Name Type Priority Associated Diagnoses Date /Time PTH Lab Routine Intestinal postoperative nonabsorption 04/03/2024 8:55 AM EDT 25-HYDROXY VITAMIN D Lab Routine Intestinal postoperative nonabsorption 04/03/2024 8:55 AM EDT COPPER, SERUM OR PLASMA Lab Routine Intestinal postoperative nonabsorption 04/03/2024 8:55 AM EDT ZINC Lab Routine Intestinal postoperative nonabsorption 04/03/2024 8:55 AM EDT VITAMIN B12 Lab Routine Intestinal postoperative nonabsorption 04/03/2024 8:55 AM EDT FOLIC ACID Lab Routine Intestinal postoperative nonabsorption 04/03/2024 8:55 AM EDT FERRITIN Lab Routine Intestinal postoperative nonabsorption 04/03/2024 8:55 AM EDT IRON SCREEN, INCLUDING TIBC Lab Routine Intestinal postoperative nonabsorption 04/03/2024 8:55 AM EDT VITAMIN A (RETINOL) Lab Routine Intestinal postoperative nonabsorption 04/03/2024 8:55 AM EDT VITAMIN B1 (THIAMINE), BLOOD, LC/MS/MS Lab Routine Intestinal postoperative nonabsorption 04/03/2024 8:55 AM EDT HEMOGLOBIN A1C Lab Routine Intestinal postoperative nonabsorption 04/03/2024 8:55 AM EDT Scheduled Orders Name Type Priority Associated Diagnoses Orde r Schedule PTH Lab Routine Intestinal postoperative nonabsorption Expected: 04/03/2024 (Approximate), Expires: 10/04/2024 25-HYDROXY VITAMIN D Lab Routine Intestinal postoperative nonabsorption Expected: 04/03/2024 (Approximate), Expires: 10/04/2024 COPPER, SERUM OR PLASMA Lab Routine Intestinal postoperative nonabsorption Expected: 04/03/2024 (Approximate), Expires: 10/04/2024 ZINC Lab Routine Intestinal postoperative nonabsorption Expected: 04/03/2024 (Approximate), Expires: 10/04/2024 VITAMIN B12 Lab Routine Intestinal postoperative nonabsorption Expected: 04/03/2024 (Approximate), Expires: 10/04/2024 FOLIC ACID Lab Routine Intestinal postoperative nonabsorption Expected: 04/03/2024 (Approximate), Expires: 10/04/2024 FERRITIN Lab Routine Intestinal postoperative nonabsorption Expected: 04/03/2024 (Approximate), Expires: 10/04/2024 IRON SCREEN, INCLUDING TIBC Lab Routine Intestinal postoperative nonabsorption Expected: 04/03/2024 (Approximate), Expires: 10/04/2024 VITAMIN A (RETINOL) Lab Routine Intestinal postoperative nonabsorption Expected: 04/03/2024 (Approximate), Expires: 10/04/2024 VITAMIN B1 (THIAMINE), BLOOD, LC/MS/MS Lab Routine Intestinal postoperative nonabsorption Expected: 04/03/2024 (Approximate), Expires: 10/04/2024 HEMOGLOBIN A1C Lab Routine Intestinal postoperative nonabsorption Expected: 04/03/2024 (Approximate), Expires: 10/04/2024 Health Maintenance Due Date Last Done Comments Hepatitis B (1 of 3 - 19+ 3-dose series) 2006 COVID-19 Vaccine ( season) 2023 03/04/2021 Pap Smear 06/09/2026 06/09/2023, /04/2020, 01/21/2020, Additional history exists Diabetes Screening 03/31/2027 [...] as of this encounter Visit Diagnoses Diagnosis Intestinal postoperative nonabsorption- Primary Other and unspecified postsurgical nonabsorption documented in this encounter Advance Directives Latest Code Status [...] and were consensually agreed upon. Care Teams Tack Picker Relationship Specialty Start Date End Date Sheila Melendez PA-C [address] [place], [place] [address] PCP - General Physician Food Cashier 01/27/15 documented as of this encounter
--- OUTSIDE RECORDS SUMMARY | 2024-07-02 08:05 | External Medical Summary ---
Author Name Unknown Address Unknown Organization [id number]:LABORATORY [facility] [place] [facility] [place] [address] [place] [address] Laboratory Report Ordering Provider Test Date Status SABINA COLON 04/03/2024 08:55:05 Final Observation Date Value Abnormality Reference (Units ) Status Vitamin B12 04/03/2024 08:55:05 728 189-3381 (pg/mL) Final Performing Location LABORATORY [facility] - [address] [place] [address]
--- OUTSIDE RECORDS SUMMARY | 2024-07-02 08:05 | External Medical Summary ---
Author Name Unknown Address Unknown Organization [id number]:LABORATORY [facility] [place] - [address] [place] [address] Laboratory Report Ordering Provider Test Date Status SABINA COLON 04/03/2024 08:55:05 Final Observation Date Value Abnormality Reference (Units ) Status Parathyrin.intact [Mass/volume] in Serum or Plasma 04/03/2024 08:55:05 21 15-65 (pg/mL) Final Performing Location LABORATORY [facility] [place] - [address] [place] [address]
--- OUTSIDE RECORDS SUMMARY | 2024-07-02 08:05 | External Medical Summary ---
Author Name Unknown Address Unknown Organization [id number]:LABORATORY [facility] [place] - [address] [place] [address] Laboratory Report Ordering Provider Test Date Status SABINA COLON 04/03/2024 08:55:05 Final Deficient: <20 ng/mL
Ins ufficient: 20-29 ng/mL
Recommended/Optimum:30-50 ng/mL

Vitamin D intoxication is rare. If suspicious of Vitamin D toxicity, evaluation of serum Calcium and PTH is recommended. Observation Date Value Abnormality Reference (Units ) Status 25-OH Vitamin D total 04/03/2024 08:55:05 41 >19 (ng/mL) Final Performing Location LABORATORY [facility] - [address] [place] [address]
--- OUTSIDE RECORDS SUMMARY | 2024-07-02 08:05 | External Medical Summary ---
Author Name Unknown Address Unknown Organization K01:LABORATORY [facility] [place] - [address] [place] [address] Laboratory Report Ordering Provider Test Date Status SABINA COLON 04/03/2024 08:55:05 Final Observation Date Value Abnormality Reference (Units ) Status Iron 04/03/2024 08:55:05 91 33-151 (ug/dL) Final Iron-binding capacity 04/03/2024 08:55:05 458 Above high normal 250-425 (ug/dL) Final Transferrin Sat % 04/03/2024 08:55:05 20 15-55 (%) Final Performing Location LABORATORY [facility] [place] - [address] [place] [address]
--- OUTSIDE RECORDS SUMMARY | 2024-07-02 08:05 | External Medical Summary | Summary of Care ---
Author Name Unknown Organization [facility] Address [address] [facility] [place] [address] Phone [phone] Care Team Providers Care President & Ceo Name Role Phone Sheila Melendez PA-C Primary Care Provide r Reason for Visit * Reason Comments Outpatient Testing Encounter Details Date Type Department Care Team (Late st Contact Info) Description 04/03/2024 8:50 AM EDT Laboratory Laboratory, [facility] [address] [facility] [phone] [facility] [address] [place] [address] Intestinal postoperative nonabsorption Allergies Active Allergy Reactions Criticality Noted Date [...] Oral Capsule Take by mouth. 0 Active [place]-3 Fatty Acids 1000 MG Oral Capsule (OMEGA-3) [...] first trimester,S/P bariatric surgery 1000 mcg IM [id number] 08/22/2021 Active documented as of this encounter [...] -Vitamin D 800 IU daily -Calcium citrate 0747-8553 mg daily (better absorbed than calcium carbonate) [...] be handled at the discretion of the study coordinator. 7. For women with a history of [...] money to get more. Never true 11/26/2023 [place] Depression Scale Answer Date Recorded [place] Depression Scale Total 2 11/29/2023 The thought [...] Description 04/14/2024 9:00 AM EDT Laboratory Laboratory, [facility] [address] [place] [id number] Lucero Jones [address] [place] [address] 04/14/2024 9:15 AM EDT Office Visit Gynecology/Obstetrics Robin Jones [address] [place] [address] Lavonne Babin PA-C [address] [place] [address] 04/29/2024 8:30 AM EDT Office [facility] [address] [place], [place] [address] BackMima clark CRNP [address] [place] [address] 04/29/2024 9:00 AM EDT Nurse Only Nutrition & Weight Management, Robin [facility] [address] [place], [place] [address] [facility], Nurse Gi Nutrition [facility] [address] [place] [address] 05/13/2024 8:30 AM EDT Office Visit Gynecology/Obstetrics Robin [facility] [address] [place], [place] [address] BackMima clark CRNP [address] [place], [place] [address] 05/27/2024 8:30 AM EDT Office Visit Gynecology/Obstetrics Robin [facility] [address] [place], [place] [address] Mima Membreno CRNP [address] [place] [address] 06/10/2024 8:45 AM EDT Office Visit Gynecology/Obstetrics Robin [facility] [address] [place] [address] Samina Flores MD [address] [place] [address] [place] [address] 06/17/2024 8:30 AM EDT Office Visit Gynecology/Obstetrics Robin [facility] [address] [place], [place] [address] BackMima clark CRNP [address] [place] [address] 06/24/2024 8:30 AM EDT Office Visit Gynecology/Obstetrics [facility] [address] [place] [address] Mima Membreno CRNP [address] [place] [address] 09/11/2024 9:00 AM EDT Office Visit Nutrition & Weight Management, [facility] [address] [place] [address] [place] Laura PA-C [address] [place] [address] Pending Results Name Type Priority Associated Diagnoses [...] Intestinal postoperative nonabsorption 04/03/2024 8:55 AM EDT Health Maintenance Due Date Last [...] this encounter Visit Diagnoses Diagnosis Intestinal postoperative nonabsorption Other and unspecified postsurgical nonabsorption documented in [...] and were consensually agreed upon. Care Teams President & Ceo Relationship Specialty Start Date End Date Sheila Melendez PA-C [address] [place] [address], [place] [address] PCP - General Physician Garnetter 01/27/15 documented as of this encounter
--- OUTSIDE RECORDS SUMMARY | 2024-07-02 08:05 | External Medical Summary | Summary of Care ---
Author Name Unknown Organization [facility] Address [address] [place] [address] Phone [phone] Care Team Providers Care Permanent Mold Supervisor Name Role Phone Sheila Melendez PA-C Primary Care Provide r Encounter Details Date Type Department Care Team (Late st Contact Info) Description 04/01/2024 Orders Only Gynecology/Obstetrics [facility] [address] [place] [address] Barbara Mckeon [facility] [address] [place], [place] [phone] Allergies Active Allergy Reactions Criticality Noted Date [...] Oral Capsule Take by mouth. 0 Active [place]-3 Fatty Acids 1000 MG Oral Capsule (OMEGA-3) [...] first trimester,S/P bariatric surgery 1000 mcg IM [id number] 08/22/2021 Active documented as of this encounter [...] -Vitamin D 800 IU daily -Calcium citrate 4950-7166 mg daily (better absorbed than calcium carbonate) [...] be handled at the discretion of the roaster operator. 7. For women with a history of [...] money to get more. Never true 11/26/2023 [place] Depression Scale Answer Date Recorded [place] Depression Scale Total 2 11/29/2023 The thought [...] EDT Office Visit Nutrition & Weight Management, [facility] [address] [address] [address] [place] Laura PA-C [address] [place] [address] 04/14/2024 9:00 AM EDT Laboratory Laboratory, [facility] [address] [place] [phone] [facility] [address] [place] [address] 04/14/2024 9:15 AM EDT Office Visit Gynecology/Obstetrics [facility] [address] [place] [address] Lavonne Babin PA-C [address] [place] [address] 04/29/2024 8:30 AM EDT Office Visit Gynecology/Obstetrics [facility] [address] [place] [address] Mima Membreno CRNP [address] [place] [address] 04/29/2024 9:00 AM EDT Nurse Only Nutrition & Weight Management, [facility] [address] [place] [address] [facility], Nurse Gi Nutrition [facility] [address] [place] [address] 05/13/2024 8:30 AM EDT Office Visit Gynecology/Obstetrics [facility] [address] [place] [address] Mima Membreno CRNP [address] [place] [address] 05/27/2024 8:30 AM EDT Office Visit Gynecology/Obstetrics [facility] [address] [place] [address] Mima Membreno CRNP [address] [place] [address] 06/10/2024 8:45 AM EDT Office Visit Gynecology/Obstetrics [facility] [address] [place] [address] Samina Flores MD [address] [place] [address] [place] [address] 06/17/2024 8:30 AM EDT Office Visit Gynecology/Obstetrics [facility] [address] [place] [address] Mima Membreno CRNP [address] [place] [address] 06/24/2024 8:30 AM EDT Office Visit Gynecology/Obstetrics [facility] [address] [place] [address] Mima Membreno CRNP [address] [place] [address] 09/11/2024 9:00 AM EDT Office Visit Nutrition & Weight Management, [facility] [address] [place] [address] [place] Laura PA-C [address] [place] [address] Health Maintenance Due Date Last Done Comments Hepatitis B (1 of 3 - 19+ 3-dose series) 2006 COVID-19 Vaccine (2022- season) 2023 03/04/2021 Pap Smear 06/09/2026 06/09/2023, 12/28, 01/21/2020, Additional history exists Diabetes Screening 09/10/2026 03/31/2024, 1 , 09/10/2023, Additional history exists [...] Not on filedocumented as of this encounter Procedures Procedure Name Priority Date/Time Associated Diagnosis Comments CHEMISTRY-OUTSIDE Routine 03/31/2024 documented in this encounter Results * (ABNORMAL) CHEMISTRY-OUTSIDE (03/31/2024) Not all results display below - see scan for full detail OUTSIDE LAB (SEE SCANNED REPORT) Comment:SEE SCAN; CMP CREATININE-OUTSID E LAB 0.47(L) 0.6 - 1.2 MG/DL OUTSIDE LAB (SEE SCANNED REPORT) EGFR-OUTSIDE LAB 127.1 ML/MIN/1.7 3M2 OUTSIDE LAB (SEE SCANNED REPORT) POTASSIUM-OUTSIDE LAB 4.2 3.5 - 5.1 MMOL/L OUTSIDE LAB (SEE SCANNED REPORT) GLUCOSE-OUTSIDE LAB 102(H) 70 - 99 MG/DL OUTSIDE LAB (SEE SCANNED REPORT) HOURS FASTING OUTSID E LAB (SEE SCANNED REPORT) TRIGLYCERIDES-OUT SIDE LAB OUTSIDE LAB (SEE SCANNED REPORT) CHOLESTEROL-OUTSI DE LAB OUTSIDE LAB (SEE SCANNED REPORT) HDL-OUTSIDE LAB OUTS JALEN LAB (SEE SCANNED REPORT) CHOL/HDL RATIO-OUTSIDE LAB OUTSIDE LA B (SEE SCANNED REPORT) LDL (CALCULATED)-OUTS JALEN LAB OUTSIDE LAB (SEE SCANNED REPORT) LDL (DIRECT MEASURE)-OUTSIDE LAB OUTSIDE LAB (SEE SCANNED REPORT) HEMOGLOBIN, T1O-HIEEIPB LAB OUTSIDE LAB (SEE SCANNED REPORT) PHOSPHORUS-OUTSID E LAB OUTSIDE LAB (SEE SCANNED REPORT) PTH-OUTSIDE LAB OUTS JALEN LAB (SEE SCANNED REPORT) MICROALBUMIN RATIO-OUTSIDE LAB OUTSIDE LA B (SEE SCANNED REPORT) PROTEIN, UA-OUTSIDE LAB OUTSIDE LAB (SEE SCANNED REPORT) HGB OUTSIDE LA B (SEE SCANNED REPORT) 03/31/2024 Bogdan Olivares MD LABORATORY OUTSIDE LAB (SEE SCANNED REPORT) documented in this encounter Advance Directives Latest [...] and were consensually agreed upon. Care Teams Permanent Mold Supervisor Relationship Specialty Start Date End Date Sheila Melendez PA-C [address] [place] [address], [place] [address] PCP - General Physician Networking Technician 01/27/15 documented as of this encounter
--- OUTSIDE RECORDS SUMMARY | 2024-07-02 08:05 | External Medical Summary | Summary of Care ---
Author Name Unknown Organization [facility] Address [address] [facility] [address] Phone [phone] Care Team Providers Care Installation Technician Name Role Phone Sheila Melendez PA-C Primary Care Provide r Encounter Details Date Type Department Care Team (Late st Contact Info) Description 04/01/2024 Telephone Gynecology/Obstetrics [facility] [address] [facility] [place] [address] Samina Flores MD [address] [facility] [place] [address] Allergies Active Allergy Reactions Criticality [...] Oral Capsule Take by mouth. 0 Active [place]-3 Fatty Acids 1000 MG Oral Capsule (OMEGA-3) [...] first trimester,S/P bariatric surgery 1000 mcg IM [id number] 08/22/2021 Active documented as of this encounter [...] -Vitamin D 800 IU daily -Calcium citrate 0105-2317 mg daily (better absorbed than calcium carbonate) [...] be handled at the discretion of the personnel representative. 7. For women with a history [...] Inj 08/29/2012,12/25/2011 TDAP (age 10 and older)(Boostrix) 01/12/2022 TDAP (age 11 and older)(Adacel) 12/25/2011,10/2210/22/2019 documented as of this encounter Social History [...] money to get more. Never true 11/26/2023 [place] Depression Scale Answer Date Recorded [place] Depression Scale Total 2 11/29/2023 The thought [...] encounter Miscellaneous Notes * Telephone Encounter - Celeste Cruz LPN - 04/01/2024 11:59 AM EDT Patient notified. * Telephone Encounter - Jenniffer Casillas RN - 04/01/2024 11:[address] Flores: Reviewed Dr Olivares's note and labs. Yes ok to follow up as scheduled Thanks Attempted to call patient. No answer, Lvm to return call. Patient records also received, scanned into chart. * Telephone Encounter - Jenniffer Casillas RN - 04/01/2024 10:01 AM EDT Patient calling in . She is 28w1d . Reports she was in the ER at [facility] last night for possible bladder spasms, [...] EDT Office Visit Nutrition & Weight Management, [facility] [address] [place] [address] [place] Laura PA-C [address] [address] 04/14/2024 9:00 AM EDT Laboratory Laboratory, [facility] [address] [phone] [facility] [address] [place] [address] 04/14/2024 9:15 AM EDT Office Visit Gynecology/Obstetrics [facility] [address] [place] [address] Lavonne Babin PA-C [address] [place] [address] 04/29/2024 8:30 AM EDT Office Visit Gynecology/Obstetrics Robin [facility] [address] [place], [place] [address] Mima Membreno CRNP [address] [place], [place] [address] 04/29/2024 9:00 AM EDT Nurse Only Nutrition & Weight Management, Robin [facility] [address] [place] [address] [facility], Nurse Gi Nutrition [facility] [address] [place] [address] 05/13/2024 8:30 AM EDT Office Visit Gynecology/Obstetrics Robin Jones [address] [place], [place] [address] Mima Membreno CRNP [address] [place], [place] [address] 05/27/2024 8:30 AM EDT Office Visit Gynecology/Obstetrics Robin Jones [address] [place] [address] Mima Membreno CRNP [address] [place] [address] 06/10/2024 8:45 AM EDT Office Visit Gynecology/Obstetrics Robin [facility] [address] [place] [address] Samina Flores MD [address] [place] [address] [place] [address] 06/17/2024 8:30 AM EDT Office Visit Gynecology/Obstetrics Robin Jones [address] [place] [address] Mima Membreno CRNP [address] [place], [place] [address] 06/24/2024 8:30 AM EDT Office Visit Gynecology/Obstetrics [facility] [address] [place] [address] Mima Membreno CRNP [address] [place] [address] 09/11/2024 9:00 AM EDT Office Visit Nutrition & Weight Management, [facility] [address] [place] [address] [place] Laura PA-C [address] [place] [address] Health Maintenance Due Date Last Done Comments [...] and were consensually agreed upon. Care Teams Installation Technician Relationship Specialty Start Date End Date Sheila Melendez PA-C [address] [place] [address], [place] [address] PCP - General Physician Power Plant Installer 01/27/15 documented as of this encounter
--- OUTSIDE RECORDS SUMMARY | 2024-07-02 08:05 | External Medical Summary ---
Author Name Unknown Address Unknown Organization : Laboratory Report Ordering Provider Test Date Status SABINA COLON 04/03/2024 08:55:05 Final Observation Date Value Abnormality Reference (Units ) Status Copper 04/03/2024 08:55:05 248 Above high normal 70 -175 (mcg/dL) Final THIS RESULT HAS BEEN VERIFIE D BY REPEAT ANALYSIS.
This test was developed and its analytical performance
characteristics have been determined by [facility] [place], [place]. It has
not been cleared or approved by the U.S. Food and Drug
Administration. This assay has been validated pursuant
to the CLIA regulations and is used for clinical
purposes.

Test Performed at:
[facility]
[address] [place] [address]
Deep Goins M.D., Ph.D.,Director of Laboratories Performing Location
--- OUTSIDE RECORDS SUMMARY | 2024-07-02 08:05 | External Medical Summary ---
Author Name Unknown Address Unknown Organization K01:LABORATORY [facility] - [address] [place] [address] Laboratory Report Ordering Provider Test Date Status SABINA COLON 04/03/2024 08:55:05 Final Observation Date Value Abnormality Reference (Units ) Status HbA1C 04/03/2024 08:55:05 4.4 4.0-5.6 (% ) Final The use of HbA1c to monitor glycemic status is based on normal hemoglobin and HbA composition. This test should not be used in patients with abnormal hemoglobin that affects the half life of the red blood cell or the in vivo glycation rates. Glucose, estimated average 04/03/2024 08:55:05 80 <126 (mg/dL) Final Performing Location LABORATORY [facility] [address] [facility] [address]
--- OUTSIDE RECORDS SUMMARY | 2024-07-02 08:05 | External Medical Summary ---
Author Name Unknown Address Unknown Organization : Laboratory Report Ordering Provider Test Date Status SABINA COLON 04/03/2024 08:55:05 Final Observation Date Value Abnormality Reference (Units ) Status Vitamin A, level 04/03/2024 08:55:05 31 Below low nor mal 38-98 (mcg/dL) Final Vitamin supplementation with in 24 hours prior to
blood draw may affect the accuracy of the results.
This test was developed and its analytical performance
characteristics have been determined by [facility] [employer] [place], [place]. It has
not been cleared or approved by the U.S. Food and Drug
Administration. This assay has been validated pursuant
to the CLIA regulations and is used for clinical
purposes.

Test Performed at:
[facility]
[address] [facility] [place] [address]
Deep Goins M.D., Ph.D.,Director of Laboratories Performing Location
--- OUTSIDE RECORDS SUMMARY | 2024-07-02 08:05 | External Medical Summary | Summary of Care ---
Author Name Unknown Organization [facility] Address [address] [place] [address] Phone [phone] Care Team Providers Care Billet Sawyer Name Role Phone Sheila Melendez PA-C Primary Care Provide r Encounter Details Date Type Department Care Team (Late st Contact Info) Description 04/07/2024 Orders Only Gynecology/Obstetrics [facility] [address] [place] [address] Barbara Mckeon [facility] [address] [place] [address] Allergies Active Allergy Reactions Criticality Noted Date Comments Enoxaparin Sodium Rash 09/10/2019 documented as of this encounter (statuses as of 04/07/2024) Medications Medication Sig Dispensed Refills Start Date [...] Oral Capsule Take by mouth. 0 Active [place]-3 Fatty Acids 1000 MG Oral Capsule (OMEGA-3) [...] first trimester,S/P bariatric surgery 1000 mcg IM [id number] 08/22/2021 Active documented as of this encounter (statuses as of 04/07/2024) Active Problems Problem Noted Date Diagnosed Date [...] -Vitamin D 800 IU daily -Calcium citrate 2087-0505 mg daily (better absorbed than calcium carbonate) [...] as of this encounter (statuses as of 04/07/2024) Resolved Problems Problem Noted Date Diagnosed Date [...] be handled at the discretion of the fishing lure assembler. 7. For women with a history of [...] as of this encounter (statuses as of 04/07/2024) Immunizations Name Administration Dates Next Due HPV [...] money to get more. Never true 11/26/2023 [place] Depression Scale Answer Date Recorded [place] Depression Scale Total 2 11/29/2023 The thought [...] 04/14/2024 9:00 AM EDT Laboratory Laboratory, [facility] [address] [place] [phone] Lucero Jones [address] [place] [address] 04/14/2024 9:15 AM EDT Office Visit Gynecology/Obstetrics Robin Jones [address] [place] [address] Lavonne Babin PA-C [address] [place] [address] 04/29/2024 8:30 AM EDT Office Visit Gynecology/Obstetrics Robin Jones [address] [place] [address] Mima Membreno CRNP [address] [place], [place] [address] 04/29/2024 9:00 AM EDT Nurse Only Nutrition & Weight Management, Robin [facility] [address] [place], [place] [address] [facility], Nurse Gi Nutrition [facility] [address] [place] [address] 05/13/2024 8:30 AM EDT Office Visit Gynecology/Obstetrics Robin Butchers [address] [place], [place] [address] Mima Membreno CRNP [address] [place], [place] [address] 05/27/2024 8:30 AM EDT Office Visit Gynecology/Obstetrics Robin Jones [address] [place], [place] [address] Mima Membreno CRNP [address] [place], [place] [address] 06/10/2024 8:45 AM EDT Office Visit Gynecology/Obstetrics Robin Butchers [address] [place], [place] [address] Samina Flores MD [address] [place] [address] [place] [address] 06/17/2024 8:30 AM EDT Office Visit Gynecology/Obstetrics Robin Butchers [address] [place] [address] Mima Membreno CRNP [address] [place], [place] [address] 06/24/2024 8:30 AM EDT Office Visit Gynecology/Obstetrics Robin [facility] [address] [place] [address] Mima Membreno CRNP [address] [place] [address] 09/11/2024 9:00 AM EDT [facility] [address] [place] [address] [place] Laura PA-C [address] [place] [address] Health Maintenance Due Date Last Done Comments [...] 03/31/2024 documented in this encounter Results * CHEMISTRY-OUTSIDE (03/31/2024) Not all results display below - see scan for full detail OUTSIDE LAB (SEE SCANNED REPORT) Comment:SEE SCAN: CBCD CREATININE-OUTSID E LAB OUTSIDE LAB (SEE SCANNED REPORT) EGFR-OUTSIDE LAB OUT SIDE LAB (SEE SCANNED REPORT) POTASSIUM-OUTSIDE LAB OUTSIDE LAB (SEE SCANNED REPORT) GLUCOSE-OUTSIDE LAB OUTSIDE LAB (SEE SCANNED REPORT) HOURS FASTING [...] LAB OUTSIDE LAB (SEE SCANNED REPORT) HEMOGLOBIN, [id number] LAB OUTSIDE LAB (SEE SCANNED REPORT) PHOSPHORUS-OUTSID E LAB OUTSIDE LAB (SEE SCANNED REPORT) PTH-OUTSIDE LAB OUTS JALEN LAB (SEE SCANNED REPORT) MICROALBUMIN RATIO-OUTSIDE LAB OUTSIDE LA B (SEE SCANNED REPORT) PROTEIN, UA-OUTSIDE LAB OUTSIDE LAB (SEE SCANNED REPORT) HGB 12.0 12.0 - 16.0 G/DL OUTSIDE LAB (SEE SCANNED REPORT) 03/31/2024 History Per Patient LABORATORY OUTSIDE LAB (SEE SCANNED REPORT) documented [...] and were consensually agreed upon. Care Teams Billet Sawyer Relationship Specialty Start Date End Date Sheila Melendez PA-C [address] [place] [address], [place] [address] PCP - General Physician Urologist 01/27/15 documented as of this encounter
--- OUTSIDE RECORDS SUMMARY | 2024-07-02 08:05 | External Medical Summary ---
Author Name Unknown Address Unknown Organization : Laboratory Report Ordering Provider Test Date Status SABINA COLON 04/03/2024 08:55:05 Final Observation Date Value Abnormality Reference (Units ) Status Thiamine [Moles/volume] in Blood 04/03/2024 08:55:05 163 78-185 (nmol/L) Final Vitamin supplementation with in 24 hours prior to
blood draw may affect the accuracy of the results.
This test was developed and its analytical performance
characteristics have been determined by [facility] [address] [place], [place]. It has
not been cleared or approved by the U.S. Food and Drug
Administration. This assay has been validated pursuant
to the CLIA regulations and is used for clinical
purposes.

Test Performed at:
[facility]
[address] [facility] [address]
Deep Goins M.D., Ph.D.,Director of Laboratories Performing Location
--- OUTSIDE RECORDS SUMMARY | 2024-07-02 08:05 | External Medical Summary | Summary of Care ---
Author Name Unknown Organization [facility] Address [address] [facility] [place] [address] Phone [phone] Care Team Providers Care Supervisor Asbestos Textile Name Role Phone Sheila Melendez PA-C Primary Care Provide r Encounter Details Date Type Department Care Team (Late st Contact Info) Description 03/31/2024 Result Scan Unspecified Department <No scans attached> Allergies Active Allergy Reactions Criticality Noted Date [...] Oral Capsule Take by mouth. 0 Active [place]-3 Fatty Acids 1000 MG Oral Capsule (OMEGA-3) [...] first trimester,S/P bariatric surgery 1000 mcg IM [id number] 08/22/2021 Active documented as of this encounter [...] -Vitamin D 800 IU daily -Calcium citrate 1095-6267 mg daily (better absorbed than calcium carbonate) [...] F elevated PP/email to patient/nutrition appt this 02/13 stable 02/20 F stable, several high [...] be handled at the discretion of the staffing program manager. 7. For women with a history of [...] money to get more. Never true 11/26/2023 [place] Depression Scale Answer Date Recorded [place] Depression Scale Total 2 11/29/2023 The thought [...] EDT Office Visit Nutrition & Weight Management, [facility] [address] [place] [address] Marina Laura PA-C [address] [place] [address] 04/14/2024 9:00 AM EDT Laboratory Laboratory, [facility] [address] [place] [id number] [facility] [address] [place] [address] 04/14/2024 9:15 AM EDT Office Visit Gynecology/Obstetrics [facility] [address] [place] [address] Lavonne Babin PA-C [address] [place] [address] 04/29/2024 8:30 AM EDT Office Visit Gynecology/Obstetrics Robin [facility] [address] [place], [place] [address] Mima Membreno CRNP [address] [place], [place] [address] 04/29/2024 9:00 AM EDT Nurse Only Nutrition & Weight Management, Robin [facility] [address] [place], [place] [address] [facility], Nurse Gi Nutrition [facility] [address] [place] [address] 05/13/2024 8:30 AM EDT Office Visit Gynecology/Obstetrics Robin [facility] [address] [place], [place] [address] Mima Membreno CRNP [address] [place], [place] [address] 05/27/2024 8:30 AM EDT Office Visit Gynecology/Obstetrics Robin [facility] [address] [place] [address] Mima Membreno CRNP [address] [place] [address] 06/10/2024 8:45 AM EDT Office Visit Gynecology/Obstetrics Robin [facility] [address] [place] [address] Samina Flores MD [address] [place] [address] [place] [address] 06/17/2024 8:30 AM EDT Office Visit Gynecology/Obstetrics Robin Jones [address] [place] [address] Mima Membreno CRNP [address] [place], [place] [address] 06/24/2024 8:30 AM EDT Office Visit Gynecology/Obstetrics [facility] [address] [place] [address] Mima Membreno CRNP [address] [place] [address] 09/11/2024 9:00 AM EDT Office Visit Nutrition & Weight Management, [facility] [address] [place] [address] Marina Laura PA-C [address] [place] [address] Health Maintenance Due Date Last Done Comments Hepatitis B (1 of 3 - 19+ 3-dose series) 2006 COVID-19 Vaccine (2022- season) 2023 03/04/2021 Pap Smear 06/09/2026 06/09/2023, 12/28, 01/21/2020, Additional history exists Diabetes Screening 09/10/2026 09/10/2023, 1 , 07/19/2022, Additional history exists Cervical Cancer Screening 06/09/2028 [...] Procedure Name Priority Date/Time Associated Diagnosis Comments RADIOLOGY SCANNED RESULT 03/31/2024 documented in this encounter Results * RADIOLOGY SCANNED RESULT (03/31/2024) 03/31/2024 No Physician Data Unknown DIAGNOSTIC RAD IOLOGY SERVICES documented in this encounter Advance Directives Latest [...] and were consensually agreed upon. Care Teams Supervisor Asbestos Textile Relationship Specialty Start Date End Date Sheila Melendez PA-C [address] [place] [address], [place] [address] PCP - General Physician Heat Treat Furnace Operator 01/27/15 documented as of this encounter
--- OUTSIDE RECORDS SUMMARY | 2024-07-02 08:05 | External Medical Summary ---
Author Name Unknown Address Unknown Organization : Laboratory Report Ordering Provider Test Date Status SABINA COLON 04/03/2024 08:55:05 Final Observation Date Value Abnormality Reference (Units ) Status Zinc, level 04/03/2024 08:55:05 52 Below low normal 6 0-130 (mcg/dL) Final This test was developed and its analytical performance
characteristics have been determined by [employer]
[place], [place]. It has
not been cleared or approved by the U.S. Food and Drug
Administration. This assay has been validated pursuant
to the CLIA regulations and is used for clinical
purposes.

Test Performed at:
[facility]
[address] [facility]
[place] [address]
Deep Goins M.D., Ph.D.,Director of Laboratories Performing Location
--- OUTSIDE RECORDS SUMMARY | 2024-07-02 08:05 | External Medical Summary | Summary of Care ---
Author Name Unknown Organization [facility] Address [address] [facility] [address] Phone [phone] Care Team Providers Care Drill Doctor Name Role Phone Sheila Melendez PA-C Primary Care Provide r Encounter Details Date Type Department Care Team (Late st Contact Info) Description 04/01/2024 Telephone Gynecology/Obstetrics [facility] [address] [facility] [place] [address] [facility]ina Flores [facility] [address] [facility] [place] [address] Allergies Active Allergy Reactions [...] Oral Capsule Take by mouth. 0 Active [place]-3 Fatty Acids 1000 MG Oral Capsule (OMEGA-3) [...] first trimester,S/P bariatric surgery 1000 mcg IM [id number] 08/22/2021 Active documented as of this encounter [...] -Vitamin D 800 IU daily -Calcium citrate 1692-1622 mg daily (better absorbed than calcium carbonate) [...] be handled at the discretion of the beta tester. 7. For women with a history of [...] money to get more. Never true 11/26/2023 [place] Depression Scale Answer Date Recorded [place] Depression Scale Total 2 11/29/2023 The thought [...] Reports she was in the ER at [facility] last night for possible bladder spasms, [...] EDT Office Visit Nutrition & Weight Management, [facility] [address] [place] [address] Marina Laura PA-C [address] [place] [address] 04/14/2024 9:00 AM EDT Laboratory Laboratory, [facility] [address] [address] [facility] [address] [place] [address] 04/14/2024 9:15 AM EDT Office Visit Gynecology/Obstetrics [facility] [address] [address] Lavonne Babin PA-C [address] [place] [address] 04/29/2024 8:30 AM EDT Office Visit Gynecology/Obstetrics [facility] [address] [place] [address] Mima Membreno CRNP [address] [place] [address] 04/29/2024 9:00 AM EDT Nurse Only Nutrition & Weight Management, Robin [facility] [address] [place] [address] Jones, Nurse Gi Nutrition Kyra [address] [place] [address] 05/13/2024 8:30 AM EDT Office Visit Gynecology/Obstetrics Robin Butchers [address] [place] [address] BackMima clark CRNP [address] [place] [address] 05/27/2024 8:30 AM EDT Office Visit Gynecology/Obstetrics Robin Butchers [address] [place] [address] BackMima clark CRNP [address] [place] [address] 06/10/2024 8:45 AM EDT Office Visit Gynecology/Obstetrics Robin Butchers [address] [place] [address] Samina Flores MD [address] [place] [address] [place] [address] 06/17/2024 8:30 AM EDT Office Visit Gynecology/Obstetrics Robin Butchers [address] [place] [address] BackMima clark CRNP [address] [place] [address] 06/24/2024 8:30 AM EDT Office Visit Gynecology/Obstetrics Robin [facility] [address] [place] [address] BackMima clark CRNP [address] [place] [address] 09/11/2024 9:00 AM EDT Office Visit Nutrition & Weight Management, [facility] [address] [place] [address] Marina Laura PA-C [address] [place] [address] Health Maintenance Due Date Last Done Comments Hepatitis B (1 of 3 - 19+ 3-dose series) 2006 COVID-19 Vaccine (2022-24 season) 2023 03/04/2021 Pap Smear 06/09/2026 06/09/2023, [...] and were consensually agreed upon. Care Teams Drill Doctor Relationship Specialty Start Date End Date Sheila Melendez PA-C [address] [facility], [place] [address] PCP - General Physician Public Weigher 01/27/15 documented as of this encounter
--- OUTSIDE RECORDS SUMMARY | 2024-07-02 08:05 | External Medical Summary ---
Author Name Unknown Address Unknown Organization K01:[facility] [address] [place] [address] Laboratory Report Ordering Provider Test Date Status SABINA COLON 04/03/2024 08:55:05 Final Observation Date Value Abnormality Reference (Units ) Status Ferritin 04/03/2024 08:55:05 13 13-150 (ng /mL) Final Performing Location [facility] [address] [place] [address]
[2024-07-02] MEDS ORDERED: LACTATED RINGER'S 1,000 ML IV PRN (08:08)
[2024-07-02] MEDS: LACTATED RINGER'S 1,000 ML IV SCH ×2 (08:35→19:30)
[2024-07-02 08:49] LABS: Hematocrit (blood only) 37.7 % (37.0-47.0); Hemoglobin 13.3 g/dl (12.0-16.0); Mean Corpuscular Hemoglobin 30.3 pg (25.0-34.0); Mean Corpuscular Hgb Conc 35.3 g/dL (32.0-36.0); Mean Corpuscular Volume 85.9 fL (80.0-100.0); Mean Platelet Volume 9.3 fL (9.4-12.4); Platelet Count 217 K/uL (130-400); RDW Coefficient of Variation 12.8 % (11.5-14.5); RDW Standard Deviation 39.8 fL (36.4-46.3); Red Blood Count 4.39 M/uL (4.20-5.40); White Blood Count 7.21 K/ul (4.8-10.8)
[2024-07-02] MEDS: ACETAMINOPHEN 500 MG TAB PO SCH (08:56)
--- NOTE | 2024-07-02 13:13 | History & Physical Bridge Note ---
Date of Service July 02, 2024 History & Physical Bridge Note I have examined the patient, reviewed the History & Physical and in the interval since the performance of the History & Physical I have noted the following changes of clinical significance: no changes noted
--- NOTE | 2024-07-02 13:13 | History & Physical Report ---
Date of Service July 02, 2024 Assessment & Plan Admission and Anticipated Discharge Date Admission Date: July 02, 2024 History of Present Illness Primary Care Provider: Sheila Melendez PA-C Allergies Allergy/AdvReac Type Severity Reaction Status Date / Time enoxaparin [From Lovenox] Allergy Unknown Rash Verified 07/02/24 08:42 Home Medications Medication Instructions Recorded Confirmed Type cholecalciferol (vitamin D3) 125 5,000 unit PO QAM 03/04/19 06/20/24 History mcg (5,000 unit) tablet (Vitamin D3) calcium carbonate 500 mg-vitamin 1 tab PO DAILY 10/01/21 06/20/24 History D3 10 mcg (400 unit) chewable tablet (Calcium 500 + D) folic acid 1 mg tablet 1 mg PO DAILY 10/01/21 06/20/24 History multivitamin 1 tab PO DAILY 10/01/21 06/20/24 History Past Med/Surg History Problem List (Updated 07/02/24 @ 08:40 by Emilie Dean, JOYCE) Encounter for pre-operative examination Back pain affecting in second trimester Spontaneous rupture of amniotic membranes Bariatric surgery status complicating childbirth Depression Medical History (Updated 07/02/24 @ 08:40 by Emilie Dean RN) Anemia last iron infusion 03/2024 History of COVID-19 (2021) Symptoms resolved Hx gestational diabetes with 1st PCOS (polycystic ovarian syndrome) Anxiety stopped medication; plans to restart Sleep apnea "No longer needs CPAP since bariatric surgery" Surgical History (Updated 07/02/24 @ 08:40 by Emilie Dean, RN) History of esophagogastroduodenoscopy (EGD) resolved since gastric bypass Hx of section 04/16 failure to progres Hx of gastric bypass (08/2019) 2019 [place] teeth removed History of tonsillectomy Family History Other No family history of adverse response to anesthesia Social History (Updated 07/02/24 @ 08:41 by Emilie Dean, JOYCE) Smoking Status: Never smoker Second Hand Exposure: No; Do You Dip or Chew Tobacco: No; Tobacco Cessation Education Requested by Patient: No Hx Alcohol Use: No Hx Substance Use: No Preferred Language: Danish Communication Ability: Effective Bird Cage Assembler Required: No Beliefs That Will Affect Care: None marital status: marital status details: Julius Martinez Current Living Situation: Spouse Current Living Situation Comment: lives with apolonia and 2 year old son current occupational status: employed current occupation: [employer] Other Information That Helps Us Care for You: No Feels Safe at Home: Yes Safety Concerns: Feels Safe At This Time Results & Data Results & Data Vital Signs (Past 12 Hours) Vital Signs Temp Pulse Resp BP 07/02/24 08:43 36.9 C 16 07/02/24 08:04 64 109/70
[2024-07-02] MEDS: CITRIC ACID/SODIUM CITRATE 15 ML UDC PO STA (13:45)
[2024-07-02] MEDS ORDERED: OXYTOCIN 10 UNITS/ML VIAL ONE ×4 (13:48→15:19)
[2024-07-02] MEDS ORDERED: fentaNYL citrate PF 100 MCG/2 ML VIAL ONE (13:52)
[2024-07-02] MEDS ORDERED: MoRPHine SULFATE PF 1 MG/ML 10 ML AMP/VIAL ONE (13:52)
[2024-07-02] MEDS ORDERED: PHENYLEPHRINE HCL 10 MG/ML VIAL ONE (14:01)
[2024-07-02] MEDS: ceFAZolin 2000MG 2,000 MG/15 ML SYR IV ONE (14:06)
[2024-07-02] MEDS ORDERED: ONDANSETRON INJ 2 MG/ML 2 ML VIAL ONE (14:49)
[2024-07-02] MEDS ORDERED: ePHEDrine sulfate 50 MG/5 ML SYR ONE (14:56)
[2024-07-02] MEDS ORDERED: ONDANSETRON INJ 2 MG/ML 2 ML VIAL IV PRN (15:10)
[2024-07-02] MEDS ORDERED: diphenhydrAMINE 50 MG/ML VIAL IV PRN (15:10)
[2024-07-02] MEDS ORDERED: NALOXONE HCL 1 MG in SODIUM CHLORIDE 0.9% 1,000 ML IV PRN (15:10)
[2024-07-02] MEDS ORDERED: NALBUPHINE HCL 5 MG in SYRINGE 0 ML IV PRN (15:10)
[2024-07-02] MEDS ORDERED: NALOXONE HCL 0.08 MG in SYRINGE 1.8 ML IV PRN (15:10)
[2024-07-02] MEDS ORDERED: NALOXONE HCL 0.4 MG/1 ML VIAL/CARP IV PRN (15:10)
[2024-07-02] MEDS ORDERED: LACTATED RINGER'S 500 ML IV PRN (15:10)
[2024-07-02] MEDS ORDERED: ePHEDrine sulfate 50 MG/ML AMP IV PRN (15:10)
[2024-07-02] MEDS ORDERED: PROMETHAZINE 6.25 MG/50.25 ML BAG IV PRN (15:10)
[2024-07-02] MEDS ORDERED: DC INTRASPINAL MORPHINE SCH (15:15)
[2024-07-02] MEDS ORDERED: NO NARCOTICS OR SEDATIVES SCH (15:15)
[2024-07-02] MEDS ORDERED: BENZOCAINE 20% SPRY 85 APPLN/85 GM CAN EXT PRN (15:18)
[2024-07-02] MEDS ORDERED: SENNA 8.6 MG TAB PO PRN (15:18)
[2024-07-02] MEDS ORDERED: HYDROCORTISONE ACETATE 25 MG SUPP PR PRN (15:18)
[2024-07-02] MEDS ORDERED: CALCIUM CARBONATE 500 MG CHEWABLE TAB PO PRN (15:18)
[2024-07-02] MEDS ORDERED: MAGNESIUM HYDROXIDE SUSP 30 ML UDC PO PRN (15:18)
[2024-07-02] MEDS ORDERED: KETOROLAC 30 MG/ML VIAL ONE (15:24)
[2024-07-02] MEDS ORDERED: IBUPROFEN 600 MG TAB PO SCH (15:30)
[2024-07-02] MEDS ORDERED: KETOROLAC 30 MG/ML VIAL IV SCH (15:30)
--- NOTE | 2024-07-02 15:44 | Anesthesiology Progress Note ---
Date of Service July 02, 2024 Anesthesia Post Procedure Vital Signs Vital Signs: Temp Pulse Resp BP Pulse Ox 07/02/24 15:39 51 L 116/55 L 07/02/24 15:38 55 L 98 07/02/24 08:43 36.9 C 16 07/02/24 08:04 64 109/70 Transfer of Care Handoff Completed per policy Notes Mental Status: alert / awake / arousable and participated in evaluation Patient Amnestic to Procedure: No Nausea / Vomiting: adequately controlled Pain: adequately controlled Airway Patency, RR, SpO2: stable & adequate BP & HR: stable & adequate Hydration State: stable & adequate Neuraxial Anesthesia: was administered and sensory block is resolving Anesthetic Complications: no major complications apparent and Pt Satisfied with anesthetic care
[2024-07-02] MEDS: OXYTOCIN 20 UNITS/LR 1,002 ML IV SCH (19:25)
[2024-07-02] MEDS: DIPHTHER/TETAN/PERTUS Vaccine (Tdap, Adol/Adult) 0.5mL IM ONE (19:29)
[2024-07-02] MEDS: MoRPHine SULFATE PF 1 MG/ML 10 ML AMP/VIAL INT SPINAL ONE (19:29)
[2024-07-02] MEDS: SODIUM CHLORIDE 0.9% 1,000 ML IV SCH (19:29)
[2024-07-02] MEDS: ACETAMINOPHEN 325 MG TAB PO SCH (19:30)
[2024-07-02] MEDS: SIMETHICONE 80 MG CHEW PO SCH (19:30)
[2024-07-02] MEDS: DOCUSATE SODIUM 100 MG CAP PO SCH (20:38)
--- NOTE | 2024-07-02 21:02 | Post Operative Brief Note ---
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 Draining clear yellow urine; output to be monitored by anesthesia intraoperatively.) Anesthesia Type Spinal Complications none Disposition Accompanied Patient To Recovery: Yes Overlapping Procedure I was present for: the critical portions of procedure. I was immediately available: during the entire case. Back up surgeon: was not required during procedure.
--- NOTE | 2024-07-02 21:09 | Operative Report ---
Post Operative Report Pre & Post Diagnosis Operation Date: 07/02/24 09:50 Pre-Op Diagnosis: intrauterine , desires repeat section and permanent sterilization Post-Op Diagnosis: same I identified the patient and participated in the time-out.: Yes Procedure Operation Date: 07/02/24 09:50 Actual Procedures p Repeat Section,(Bilateral) - Dandre Hardy MD s Bilateral Tubal Ligation(Bilateral) - Dandre Hardy MD Surgeon Dandre Hardy MD Jacket Preparer [place] Quantitative Blood Loss (QBL) 451 Findings Consistent with Post-Op Diagnosis live male Apgars 8/9 Fluids LR Specimens placenta bilateral tubes Drains Quezada Anesthesia Type Spinal Complications none Disposition Accompanied Patient To Recovery: Yes Indications elective repeat bilateral salpingectomy Description of Procedure There is satisfactory spinal anesthesia the patient was prepped draped in usual sterile fashion. A timeout was called antibiotics were given preop. The patient was identified. A Pfannenstiel incision was then made carrying the incision down through her prior scar into the abdominal cavity in successive layers without difficulty. Sharp Metzenbaum scissors were then used to develop the bladder flap this was sharply dissected down bladder blade was entered a low segment transverse incision over the lower uterine segment was made incision was next amniotic fluid was slightly meconium stained incision was widened in the AP diameter. The was then delivered with the aid of fundal pressure. Delivering a live male Apgars were 8 and 9 and the cord was doubly clamped and cut after a 1 minute cord delay. The baby was then handed to the professor of biostatistics present for the delivery. Cord blood was obtained the placenta was then delivered spontaneously and intact. This was then submitted to pathology as a separate specimen. The uterus was then exteriorized ring forceps were then placed on both angles and the inferior margin of the uterus was then closed with a single layer closure using 0 Vicryl suture in a continuous interlocking fashion. Tubes ovaries bilaterally were found to be within normal limits the patient requested voluntary sterilization. The right tube was serially grasped with a [place] clamp and then using the hand-held LigaSure the tube was then removed from the right and subsequently from the left side of the uterus. The initial sponge needle instrument counts were found to be correct. The uterus was then placed back into the normal anatomical position. Gutters were inspected no active bleeding was noted. The muscle was then reapproximated with several [id number] sutures using 0 Vicryl suture. The fascia was then reapproximated from both ends using 0 Vicryl suture. Subcuticular space was then closed using 3-0 plain suture. The skin was then reapproximated with 4-0 Monocryl suture. Steri-Strips were applied the robson dressing was then applied the final sponge needle and sponge count were found to be correct the patient tolerated procedure and she was moved to recovery room in stable condition. The QBL was 451 ml. The final sponge needle instrument count were found to be correct and the patient was then placed supine on the stretcher and she was moved to the recovery room in stable condition. Please note that Lavonne Babin was needed for retraction assistance at delivery of the head with fundal pressure, assistance at closure of the uterus and abdomen. I attest to the content of the Intraoperative Record and any orders documented therein. Any exceptions are noted below.
[2024-07-03 07:25] LABS: Basophils # (auto) 0.04 K/uL (0.00-0.20); Basophils % (auto) 0.3 %; Hematocrit (blood only) 33.5 % (37.0-47.0); Hemoglobin 11.6 g/dl (12.0-16.0); Immature Granulocytes # (auto) 0.09 K/uL (0.01-0.20); Immature Granulocytes % (auto) 0.6 %; Lymphocytes # (auto) 1.48 K/uL (1.20-3.40); Lymphocytes % (auto) 9.3 %; Mean Corpuscular Hemoglobin 30.4 pg (25.0-34.0); Mean Corpuscular Hgb Conc 34.6 g/dL (32.0-36.0); Mean Corpuscular Volume 87.9 fL (80.0-100.0); Mean Platelet Volume 9.9 fL (9.4-12.4); Monocytes % (auto) 8.8 %; Neutrophils # (auto) 12.82 K/uL (1.40-6.50); Platelet Count 198 K/uL (130-400); RDW Coefficient of Variation 12.8 % (11.5-14.5); RDW Standard Deviation 41.2 fL (36.4-46.3); Red Blood Count 3.81 M/uL (4.20-5.40); White Blood Count 15.83 K/ul (4.8-10.8)
[2024-07-03] MEDS: KETOROLAC 30 MG/ML VIAL IV PRN (08:06)
[2024-07-03] MEDS: PRENATAL VITAMIN 1 TAB PO SCH (08:07)
[2024-07-03] MEDS: FERROUS SULFATE 325 MG TAB PO SCH (08:07)
[2024-07-03] MEDS ORDERED: HYDROmorphone INJ 0.5 MG/0.5 ML SYR IV PRN (09:11)
[2024-07-03] MEDS ORDERED: PROMETHAZINE 12.5 MG/50.5 ML BAG IV PRN (09:11)
[2024-07-03] MEDS ORDERED: diphenhydrAMINE 50 MG/ML VIAL IV PRN (09:11)
[2024-07-03] MEDS ORDERED: ONDANSETRON INJ 2 MG/ML 2 ML VIAL IV PRN (09:11)
[2024-07-03] MEDS ORDERED: diphenhydrAMINE Capsule 25 MG CAP PO PRN (09:11)
--- NOTE | 2024-07-03 10:12 | Obstetrical Progress Note ---
Date of Service July 03, 2024 Assessment & Plan Admission and Anticipated Discharge Date Admission Date: July 02, 2024 OB Progress Note abdomen soft and non tender incision dry no calf tenderness ambulating well passing gas vaginal bleeding scant hgb 11.6 Results & Data Vital Signs (Past 12 Hours) Vital Signs Temp Pulse Resp BP Pulse Ox O2 Del Method 07/03/24 07:37 36.5 C 62 18 110/73 98 Room Air 07/03/24 07:10 18 100 07/03/24 06:09 16 98 07/03/24 05:05 16 98 07/03/24 04:01 18 98 07/03/24 03:00 16 99 07/03/24 03:00 37.3 C 67 16 98/72 L 99 Room Air 07/03/24 02:38 16 100 07/03/24 01:02 18 99 07/03/24 00:05 16 98 07/03/24 00:05 37 C 60 16 118/78 98 Room Air 07/02/24 23:00 18 100
[2024-07-03] MEDS: oxyCODONE HCL IR 5 MG TAB (IMMEDIATE RELEASE) PO PRN (13:46)
[2024-07-03] MEDS: bisacodyL 5 MG TABEC PO SCH (20:32)
[2024-07-04 02:06] VITALS: RESP 16
[2024-07-04 08:56] VITALS: PULSE 60; TEMP 97.7; O2SAT 98
--- NOTE | 2024-07-04 10:08 | Obstetrical Progress Note ---
Date of Service July 04, 2024 Assessment & Plan Admission and Anticipated Discharge Date Admission Date: July 02, 2024 Subjective Patient is seen and examined. She feels well, no complaints. Pain is under control with oral meds. Ambulating without dizziness Voiding without difficulty Tolerating regular diet with out N&V Flatus + Bleeding is minimal No fever/ chills/ CP/ SOB/ N&V/ Leg pain Breast and bottle feeding without problems Vital Signs Temp Pulse Resp BP Pulse Ox O2 Del Method 07/04/24 08:15 Room Air 07/04/24 08:15 36.5 C 60 16 107/74 98 Room Air 07/03/24 23:30 36.6 C 71 16 117/74 97 Room Air Lab Results 07/02/24 07/03/24 Range/Units 08: 07:01 WBC 7.21 15.83 H (4.8-10.8) K/ul RBC 4.39 3.81 L (4.20-5.40) M/uL Hgb 13.3 11.6 L (12.0-16.0) g/dl Hct 37.7 33.5 L (37.0-47.0) % MCV 85.9 87.9 (80.0-100.0) fL MCH 30.3 30.4 (25.0-34.0) pg MCHC 35.3 34.6 (32.0-36.0) g/dL RDW Std Deviation 39.8 41.2 (36.4-46.3) fL RDW Coeff of Andrew 12.8 12.8 (11.5-14.5) % Plt Count 217 198 (130-400) K/uL MPV 9.3 L 9.9 (9.4-12.4) fL Immature Gran % (Auto) 0.6 % Neut % (Auto) 81.0 % Lymph % (Auto) 9.3 % Taylor % (Auto) 8.8 % Eos % (Auto) 0.0 % Baso % (Auto) 0.3 % Neut # (Auto) 12.82 H (1.40-6.50) K/uL Lymph # (Auto) 1.48 (1.20-3.40) K/uL Taylor # (Auto) 1.40 H (0.11-0.59) K/uL Eos # (Auto) 0.00 (0.00-0.50) K/uL Baso # (Auto) 0.04 (0.00-0.20) K/uL Immature Gran # (Auto) 0.09 (0.01-0.20) K/uL Treponema pallidum Ab Negative (Negative) Blood Type A Positive Antibody Screen NEGATIVE PE: General: Alert, orientedx3, NAD CVS: S1S2 RRR Lungs; CTAB Abd: soft, NT, ND, BS+, fundus firm, below Umbilicus Incision/ Dressing: Clean, dry, intact Perineum intact, Lochia rubra minimal Ext; NT, no edema AP: 39 yo s/p C Section, pod# 2 VSS Afebrile doing well Continue routine postop care Encourage ambulation, PO intake All questions were answered D/C home , f/u in office Results & Data Vital Signs (Past 12 Hours) Vital Signs Temp Pulse Resp BP Pulse Ox O2 Del Method 07/04/24 08:15 Room Air 07/04/24 08:15 36.5 C 60 16 107/74 98 Room Air 07/03/24 23:30 36.6 C 71 16 117/74 97 Room Air
[2024-07-04 10:30] LABS: Basophils # (auto) 0.03 K/uL (0.00-0.20); Basophils % (auto) 0.3 %; Eosinophils # (auto) 0.01 K/uL (0.00-0.50); Eosinophils % (auto) 0.1 %; Hematocrit (blood only) 35.7 % (37.0-47.0); Hematocrit (blood only) 37.2 % (37.0-47.0); Hemoglobin 12.4 g/dl (12.0-16.0); Hemoglobin 12.6 g/dl (12.0-16.0); Immature Granulocytes # (auto) 0.06 K/uL (0.01-0.20); Immature Granulocytes % (auto) 0.5 %; Lymphocytes # (auto) 1.18 K/uL (1.20-3.40); Lymphocytes % (auto) 10.1 %; Mean Corpuscular Hemoglobin 30.2 pg (25.0-34.0); Mean Corpuscular Hgb Conc 34.7 g/dL (32.0-36.0); Mean Corpuscular Volume 87.1 fL (80.0-100.0); Mean Platelet Volume 9.6 fL (9.4-12.4); Monocytes # (auto) 0.88 K/uL (0.11-0.59); Monocytes % (auto) 7.6 %; Neutrophils # (auto) 9.48 K/uL (1.40-6.50); Neutrophils % (auto) 81.4 %; Platelet Count 241 K/uL (130-400); RDW Standard Deviation 41.2 fL (36.4-46.3); White Blood Count 11.64 K/ul (4.8-10.8)
[2024-07-04 11:10] VITALS: BP 107/72
[2024-07-04] MEDS ORDERED: ACETAMINOPHEN 325 MG TAB PO PRN (15:18)
[2024-07-04] MEDS ORDERED: IBUPROFEN 600 MG TAB PO PRN (15:18)
[2024-07-04] MEDS ORDERED: bisacodyL 10 MG SUPP PR PRN (15:18)
== END 2024-07-04 13:20 | disposition home health service (06) | DRG 785 ==
LOC: 4S1 07:51 → EDSTATUS 09:50 → 4E2 19:32
PROC: M.PPTLD (2024-07-02 09:50)